=== PATIENT | male | born 1960 | race Caucasian/White ===

== ENCOUNTER 2016-07-24 03:24 | Emergency (ER) | payer BC ==
[2016-07-24] MEDS ORDERED: KETOROLAC TROMETHAMINE 60 MG/2 ML SDV IM ONE (07:05)
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
[2016-07-24 07:52] LABS: ABSOLUTE BASOPHILS # (AUTO) 0.1 10^3/uL (0.0-0.2); ABSOLUTE EOSINOPHILS # (AUTO) 0.4 10^3/uL (0.0-0.6); ABSOLUTE LYMPHOCYTES (AUTO) 2.3 10^3/uL (0.5-4.7); ABSOLUTE MONOCYTES (AUTO) 0.9 10^3/uL (0.1-1.4); ABSOLUTE NEUT (AUTO) 6.3 10^3/uL (1.7-8.2); BASOPHILS % (AUTO) 0.6 % (0-2); EOSINOPHILS % (AUTO) 3.7 % (0-6); HEMATOCRIT 51.3 % (37.9-51.0); HEMOGLOBIN 17.9 g/dL (13.5-17.0); HGB HCT DIFFERENCE 2.4; MEAN CORPUSCULAR HEMOGLOBIN 30.9 pg (27.0-33.4); MEAN CORPUSCULAR HGB CONC 34.8 g/dL (32.0-36.0); MEAN CORPUSCULAR VOLUME 89 fl (80-97); MONOCYTES % (AUTO) 8.9 % (3-13); RED BLOOD COUNT 5.79 10^6/uL (4.35-5.55); RED CELL DISTRIBUTION WIDTH 13.2 % (11.5-14.0); SEGMENTED NEUTROPHILS % (AUTO) 63.8 % (42-78); WHITE BLOOD COUNT 9.9 10^3/uL (4.0-10.5)
[2016-07-24 08:01] LABS: ALANINE AMINOTRANSFERASE 107 U/L (21-72); ALBUMIN 3.8 g/dL (3.5-5.0); ALKALINE PHOSPHATASE 45 U/L (38-126); ANION GAP 12 (5-19); ASPARTATE AMINO TRANSFERASE 67 U/L (17-59); BILIRUBIN,DIRECT 0.1 mg/dL (0.0-0.4); BILIRUBIN,TOTAL 1.9 mg/dL (0.2-1.3); BLOOD UREA NITROGEN 23 mg/dL (7-20); CALCIUM 9.3 mg/dL (8.4-10.2); CARBON DIOXIDE 29 mmol/L (22-30); CHLORIDE 101 mmol/L (98-107); CREATININE RESULT 1.06 mg/dL (0.52-1.25); GLUCOSE 125 mg/dL (75-110); POTASSIUM 3.5 mmol/L (3.6-5.0); SODIUM 141.8 mmol/L (137-145); TOTAL PROTEIN 5.7 g/dL (6.3-8.2); URIC ACID 8.4 mg/dL (3.5-8.5)
[2016-07-24 11:30] VITALS: BP 141/98
== END 2016-07-24 11:28 | disposition home or self-care (01) ==
LOC: ER 03:24
DX: M25.551 Pain in right hip (principal); M16.11 Unilateral primary osteoarthritis, right hip; F17.210 Nicotine dependence, cigarettes, uncomplicated
CPT/HCPCS: 99283; 96372; 36415; 84550; 85025; 80053; 73502; 73560; J1885

== ENCOUNTER → 2016-08-21 | Outpatient (CLI) | payer BC ==
--- NOTE | 2016-08-21 16:17 | RADIOLOGY REPORT (SQ) ---
EXAM DESCRIPTION: CHEST PA/LATERAL COMPLETED DATE/TIME: 08/21/2016 4:03 pm REASON FOR STUDY: PRE OP COMPARISON: None. EXAM PARAMETERS: NUMBER OF VIEWS: two views TECHNIQUE: Digital Frontal and Lateral radiographic views of the chest acquired. RADIATION DOSE: NA LIMITATIONS: none FINDINGS: LUNGS AND PLEURA: No opacities, masses or pneumothorax. No pleural effusion. MEDIASTINUM AND HILAR STRUCTURES: No masses or contour abnormalities. HEART AND VASCULAR STRUCTURES: Heart normal size. No evidence for failure. BONES: No acute findings. HARDWARE: None in the chest. OTHER: No other significant finding. IMPRESSION: NO SIGNIFICANT RADIOGRAPHIC FINDING IN THE CHEST. TECHNICAL DOCUMENTATION: JOB ID: [id number] [employer]- All Rights Reserved
[2016-08-21 16:54] LABS: ABSOLUTE BASOPHILS # (AUTO) 0.1 10^3/uL (0.0-0.2); ABSOLUTE EOSINOPHILS # (AUTO) 0.5 10^3/uL (0.0-0.6); ABSOLUTE LYMPHOCYTES (AUTO) 3.1 10^3/uL (0.5-4.7); ABSOLUTE MONOCYTES (AUTO) 0.9 10^3/uL (0.1-1.4); ABSOLUTE NEUT (AUTO) 5.4 10^3/uL (1.7-8.2); BASOPHILS % (AUTO) 1.3 % (0-2); EOSINOPHILS % (AUTO) 5.5 % (0-6); HEMATOCRIT 50.8 % (37.9-51.0); HEMOGLOBIN 17.6 g/dL (13.5-17.0); LYMPHOCYTES % (AUTO) 30.4 % (13-45); MEAN CORPUSCULAR HEMOGLOBIN 30.5 pg (27.0-33.4); MEAN CORPUSCULAR HGB CONC 34.7 g/dL (32.0-36.0); MEAN CORPUSCULAR VOLUME 88 fl (80-97); MONOCYTES % (AUTO) 9.3 % (3-13); RED BLOOD COUNT 5.77 10^6/uL (4.35-5.55); RED CELL DISTRIBUTION WIDTH 13.6 % (11.5-14.0); SEGMENTED NEUTROPHILS % (AUTO) 53.5 % (42-78)
[2016-08-21 17:14] LABS: APPEARANCE,URINE CLEAR; BILIRUBIN,URINE NEGATIVE (NEGATIVE); GLUCOSE, URINE 50 mg/dL (NEGATIVE); KETONES,URINE NEGATIVE (NEGATIVE); URINE SPECIFIC GRAVITY 1.021
[2016-08-21 17:15] LABS: LEUKOCYTE ESTERASE,URINE NEGATIVE (NEGATIVE); NITRITE,URINE NEGATIVE (NEGATIVE); PROTEIN,URINE NEGATIVE (NEGATIVE); UROBILINOGEN,URINE NEGATIVE mg/dL (<2.0)
[2016-08-21 17:16] LABS: WBC,URINE 0-1 /HPF
[2016-08-21 17:17] LABS: RBC,URINE 0-1 /HPF
[2016-08-21 17:19] LABS: ANION GAP 10 (5-19); BLOOD UREA NITROGEN 21 mg/dL (7-20); CALCIUM 10.1 mg/dL (8.4-10.2); CARBON DIOXIDE 27 mmol/L (22-30); CHLORIDE 104 mmol/L (98-107); CREATININE RESULT 1.12 mg/dL (0.52-1.25); GLUCOSE 97 mg/dL (75-110); POTASSIUM 3.9 mmol/L (3.6-5.0)
--- NOTE | 2016-08-22 11:05 | EKG REPORT ---
SEVERITY:- NORMAL ECG - SINUS RHYTHM : Confirmed by: Cynthia Herrera MD 22-Aug-2016 11:04:41
== END ==
LOC: OD 15:11
PROVIDERS: ATTEND Orthopaedic Surgery
DX: Z01.818 Encounter for other preprocedural examination (principal)
CPT/HCPCS: 36415; 71020; 80048; 81001; 85025; 93005; 93010

== ENCOUNTER 2016-09-17 07:22 | Inpatient (IN) | payer BC ==
[~2016-09-17 07:22] MED LIST: BUPIVACAINE INJ/PF LIPOSOME/PF 266 MG/20 ML SDV IJ PRN; CEFAZOLIN INJ 1 GM VIAL IV PRN; IBUPROFEN 800 MG/NS 250 ML IV PRN; LACTATED RINGERS 1000 ML IV PRN; LANSOPRAZOLE 15 MG TAB.RAP.DR PO PRN; OXYCODONE HCL SR 10 MG TABLET PO PRN; SCOPOLAMINE HYDROBROMIDE 1.5 MG PATCH.TD72 TOP PRN; VANCOMYCIN HCL 1,000 MG in DEXTROSE 5%-WATER 250 ML IV PRN
[2016-09-17] MEDS ORDERED: FENTANYL CITRATE INJ/PF 250 MCG/5 ML AMPULE ONE (10:19)
[2016-09-17] MEDS ORDERED: KETAMINE HCL INJ 500 MG/10 ML VIAL ONE (10:20)
[2016-09-17] MEDS ORDERED: MIDAZOLAM 2 MG/2 ML INJ ONE ×3 (10:20→11:18)
[2016-09-17] MEDS ORDERED: PROPOFOL INJ 200 MG/20 ML VIAL IV ONE ×2 (10:20→11:18)
[2016-09-17] MEDS ORDERED: THROMBIN (BOVINE) TOPICAL 20000 UNIT VIAL ONE (10:53)
[2016-09-17] MEDS ORDERED: THROMBIN (BOVINE) 5000 UNIT EPITAXIS KIT ONE ×2 (10:53→11:35)
[2016-09-17] MEDS ORDERED: BUPIVACAINE INJ/PF LIPOSOME/PF 266 MG/20 ML SDV ONE (10:53)
[2016-09-17] MEDS ORDERED: FENTANYL CITRATE INJ/PF 100 MCG/2 ML AMPUL ONE (11:17)
[2016-09-17] MEDS ORDERED: EPHEDRINE SULFATE INJ 50 MG/1 ML AMPULE ONE (11:18)
[2016-09-17] MEDS ORDERED: HYDROMORPHONE HCL INJ/PF 2 MG/ML AMPULE ONE (11:18)
[2016-09-17] MEDS ORDERED: TRANEXAMIC ACID INJ/PF 1,000 MG/10 ML SDV IV ONE ×2 (11:18→14:00)
[2016-09-17] MEDS ORDERED: ONDANSETRON HCL INJ/PF 4 MG/2 ML SDV ONE (11:18)
[2016-09-17] MEDS ORDERED: DIPHENHYDRAMINE HCL 50 MG/ML VIAL IV PRN ×2 (11:58→12:48)
[2016-09-17] MEDS ORDERED: ONDANSETRON HCL INJ/PF 4 MG/2 ML SDV IV PRN (11:58)
[2016-09-17] MEDS ORDERED: MEPERIDINE HCL/PF INJ 25 MG/1 ML DISP.SYRIN IV PRN (11:58)
[2016-09-17] MEDS ORDERED: FENTANYL CITRATE INJ/PF 100 MCG/2 ML AMPUL IV PRN ×3 (11:58)
[2016-09-17] MEDS ORDERED: ONDANSETRON 4 MG TAB.RAPDIS PO PRN (12:48)
[2016-09-17] MEDS ORDERED: MAG HYDROX/AL HYDROX/SIMETH SUSP 30 ML UDCUP PO PRN (12:48)
[2016-09-17] MEDS ORDERED: ZOLPIDEM TARTRATE 5 MG TABLET PO PRN (12:48)
[2016-09-17] MEDS ORDERED: RINGERS SOLUTION,LACTATED 1,000 ML IV PRN (12:48)
[2016-09-17] MEDS ORDERED: ACETAMINOPHEN 325 MG TABLET PO PRN (12:48)
[2016-09-17] MEDS ORDERED: MORPHINE SULFATE 10 MG/ML INJ IM PRN (12:48)
[2016-09-17] MEDS ORDERED: MORPHINE SULFATE 10 MG/ML INJ IV PRN ×2 (12:48)
--- NOTE | 2016-09-17 12:48 | Operative Report ---
Operative Report DATE OF SURGERY: 09/17/16 PREOPERATIVE DIAGNOSIS: Right hip avascular necrosis OPERATION: Right hip arthroplasty SURGEON: LISA MARTINEZ ANESTHESIA: Spinal TISSUE REMOVED OR ALTERED: Bone to pathology ESTIMATED BLOOD LOSS: 150 PROCEDURE: Implants used: Femur: Indira Accolade 2 #5 stem Acetabular shell:[54 mm hemispherical shell] Liner:[36 mm flat cross-linked polyethylene liner] Head:[36 mm chrome cobalt head plus standard neck] The patient is placed in a[left] lateral decubitus position on the operating table. The[right] lower extremity and hindquarter is prepped and draped in a sterile fashion. A curvilinear incision was made over the greater trochanter a posterior approach the hip was taken. The femoral head is dislocated and the femoral neck transected using an oscillating saw. Attention was next turned to the acetabulum. Soft tissues cleared off the acetabulum using electrocautery. The acetabulum was then prepared using a series of hemispherical reamers until a[53] millimeters reamer is seated. Subsequently a[54] millimeters Indira titanium hemispherical shell is impacted into position and secured with one screw. A standard flat [36] millimeters cross-link liner is impacted into the shell. Attention was next turned to the femur. Access is gained to the femoral canal using a box osteotome to the piriformis fossa. The femur is then prepared using a series of broaches until a number[5] broach is seated. A trial reduction was now performed using a[36] millimeters head with[standard] neck. Preoperative leg length was recreated and is excellent anterior posterior stability. A decision was made to proceed with the above construct. All trial implants were removed. The wound is irrigated with pulsed lavage. A number[5] stem is impacted into the femoral canal. A trial reduction was again performed with a 36 mm head and a[standard] neck. Findings as previously. The hip was dislocated one last time and the final chrome-cobalt head is impacted onto the trunnion. The hip was reduced. Wound is copiously irrigated with pulsed lavage. Sent closed in layers using interrupted Vicryl followed by hermelindo. A sterile dressing is applied and the patient's returned to recovery room in satisfactory patient.
--- NOTE | 2016-09-17 13:29 | RADIOLOGY REPORT (SQ) ---
EXAM DESCRIPTION: PELVIS AP COMPLETED DATE/TIME: 09/17/2016 1:19 pm REASON FOR STUDY: Post Op Long Cassette in PACU [id number] OTHER OSTEONECROSIS, UNSPECIFIED FEMUR COMPARISON: None. NUMBER OF VIEWS: One view TECHNIQUE: Digital radiographic images of the pelvis post-procedure LIMITATIONS: None. FINDINGS: BONES: No worrisome or unexpected findings post-procedure. DEVICE: Patient is status post right total hip replacement. The prosthesis appears well seated in th e acetabulum and proximal femoral medullary canal in this 1 projection. SOFT TISSUES: No worrisome findings. Expected postoperative soft tissue changes. IMPRESSION: SATISFACTORY POSTOPERATIVE PELVIS. TECHNICAL DOCUMENTATION: JOB ID: [id number] [employer]- All Rights Reserved
[2016-09-17] MEDS ORDERED: (PENDING PHARMACY ID) (Lisinopril/Hydrochlorothiazide [Lisinopril-Hctz 20-12.5 Mg Tab] 1 E PO SCH (18:00)
[2016-09-17] MEDS: SENNOSIDES/DOCUSATE 8.6-50 MG 1 EACH TABLET PO SCH (18:10)
[2016-09-17] MEDS: HYDROCHLOROTHIAZIDE 12.5 MG CAPSULE PO SCH (18:11)
[2016-09-17] MEDS: LISINOPRIL 10 MG TABLET PO SCH (18:13)
[2016-09-17] MEDS: IBUPROFEN 800 MG in NORMAL SALINE 250 ML IV SCH (18:13)
[2016-09-17] MEDS: RIVAROXABAN 10 MG TABLET PO SCH (21:38)
[2016-09-17] MEDS: OXYCODONE HCL SR 10 MG TABLET PO SCH (21:38)
[2016-09-18] MEDS ORDERED: VANCOMYCIN HCL 1,000 MG in DEXTROSE 5%-WATER 250 ML IV ONE (00:48)
[2016-09-18] MEDS: IBUPROFEN 800 MG in NORMAL SALINE 250 ML IV SCH ×3 (02:44→17:40)
[2016-09-18] MEDS: OXYCODONE HCL IR 5 MG TABLET PO PRN ×2 (05:30→15:10)
[2016-09-18] MEDS: LANSOPRAZOLE 30 MG TAB.RAP.DR PO SCH (05:31)
[2016-09-18 05:33] LABS: HEMATOCRIT 40.2 % (37.9-51.0); HEMOGLOBIN 13.9 g/dL (13.5-17.0); HGB HCT DIFFERENCE 1.5; MEAN CORPUSCULAR HEMOGLOBIN 30.7 pg (27.0-33.4); MEAN CORPUSCULAR HGB CONC 34.4 g/dL (32.0-36.0); MEAN CORPUSCULAR VOLUME 89 fl (80-97); RED BLOOD COUNT 4.51 10^6/uL (4.35-5.55); RED CELL DISTRIBUTION WIDTH 13.3 % (11.5-14.0); WHITE BLOOD COUNT 8.7 10^3/uL (4.0-10.5)
[2016-09-18 05:53] LABS: ANION GAP 8 (5-19); BLOOD UREA NITROGEN 22 mg/dL (7-20); CALCIUM 8.3 mg/dL (8.4-10.2); CARBON DIOXIDE 19 mmol/L (22-30); CHLORIDE 108 mmol/L (98-107); CREATININE RESULT 1.16 mg/dL (0.52-1.25); GLUCOSE 165 mg/dL (75-110); POTASSIUM 4.1 mmol/L (3.6-5.0); SODIUM 135.1 mmol/L (137-145)
--- NOTE | 2016-09-18 07:18 | PDOC PROGRESS REPORT ---
Subjective Progress Note for:: 09/18/16 Subjective:: Patient denies any pain Physical Exam Vital Signs: Temp Pulse Resp BP Pulse Ox 36.7 C 68 18 86/57 L 91 L 09/18/16 04:56 09/18/16 04:56 09/18/16 04:56 09/18/16 04:56 09/18/16 04:56 Intake & Output 09/17/16 09/18/16 09/19/16 06:59 06:59 06:59 Intake Total 5080 Output Total 2850 Balance 2230 Weight 94.8 kg General appearance: PRESENT: no acute distress Head exam: PRESENT: normocephalic Eye exam: PRESENT: EOMI Respiratory exam: PRESENT: unlabored Cardiovascular exam: PRESENT: RRR Pulses: PRESENT: +1 pedal pulses bilateral Vascular exam: PRESENT: normal capillary refill GI/Abdominal exam: PRESENT: soft Rectal exam: PRESENT: deferred Extremities exam: PRESENT: other - Hip dressing clean dry and intact. Leg lengths equal. Distal neurovascular examination is intact. Neurological exam: PRESENT: alert, awake, oriented to person, oriented to place , oriented to time, oriented to situation. ABSENT: motor sensory deficit Psychiatric exam: PRESENT: appropriate affect, normal mood. ABSENT: homicidal ideation, suicidal ideation Skin exam: PRESENT: dry, intact, warm. ABSENT: cyanosis, rash Results Laboratory Results: 09/18/16 05:04 09/18/16 05:04 09/17/16 09/17/16 09/18/16 07:45 07:45 05:04 WBC 8.7 RBC 4.51 Hgb 13.9 Hct 40.2 MCV 89 MCH 30.7 MCHC 34.4 RDW 13.3 Plt Count 196 Sodium Potassium 4.1 Chloride Carbon Dioxide Anion Gap BUN Creatinine Est GFR ( Amer) Est GFR (Non-Af Amer) Glucose Calcium Blood Type AB POSITIVE Antibody Screen NEGATIVE 09/18/16 05:04 WBC RBC Hgb Hct MCV MCH MCHC RDW Plt Count Sodium 135.1 L Potassium 4.1 Chloride 108 H Carbon Dioxide 19 L Anion Gap 8 BUN 22 H Creatinine 1.16 Est GFR ( Amer) > 60 Est GFR (Non-Af Amer) > 60 Glucose 165 H Calcium 8.3 L Blood Type Antibody Screen Impressions: Pelvis X-Ray 09/17/16 12:49 IMPRESSION: SATISFACTORY POSTOPERATIVE PELVIS. Status: Imported from PACS Assessment & Plan - Diagnosis (1) Avascular necrosis of bone of right hip Is this a current diagnosis for this admission?: YesPlan: 5-year-old white male postop day 1 from right hip arthroplasty for avascular necrosis. Because of her prolonged spinal the patient did not participate with physical therapy yesterday. Plan for physical therapy today and weightbearing as tolerated basis. Hematocrit remains above 40.2%. - Time Time Spent with patient: 15-24 minutes Anticipated discharge: SNF Within: within 48 hours
[2016-09-18] MEDS: OXYCODONE HCL SR 10 MG TABLET PO SCH ×2 (09:02→22:46)
[2016-09-18] MEDS: SENNOSIDES/DOCUSATE 8.6-50 MG 1 EACH TABLET PO SCH ×2 (09:03→17:34)
[2016-09-18] MEDS: PRENATAL VITAMIN W-O CA NO5/FE FUMARATE/FA CAPSULE PO SCH (09:06)
[2016-09-18] MEDS ORDERED: MAG HYDROX/AL HYDROX/SIMETH SUSP 30 ML UDCUP PO PRN (14:46)
[2016-09-18] MEDS: HYDROCHLOROTHIAZIDE 12.5 MG CAPSULE PO SCH (17:31)
[2016-09-18] MEDS: LISINOPRIL 10 MG TABLET PO SCH (17:33)
[2016-09-18] MEDS: RIVAROXABAN 10 MG TABLET PO SCH (21:17)
[2016-09-19] MEDS: IBUPROFEN 800 MG in NORMAL SALINE 250 ML IV SCH ×2 (02:11→11:22)
[2016-09-19] MEDS: MORPHINE SULFATE 10 MG/ML INJ IV PRN ×3 (04:23→22:36)
[2016-09-19] MEDS: OXYCODONE HCL IR 5 MG TABLET PO PRN ×2 (04:57→17:50)
[2016-09-19] MEDS: LANSOPRAZOLE 30 MG TAB.RAP.DR PO SCH (05:35)
[2016-09-19 05:41] LABS: MEAN CORPUSCULAR HEMOGLOBIN 30.5 pg (27.0-33.4); MEAN CORPUSCULAR HGB CONC 34.3 g/dL (32.0-36.0); MEAN CORPUSCULAR VOLUME 89 fl (80-97); RED BLOOD COUNT 3.59 10^6/uL (4.35-5.55); RED CELL DISTRIBUTION WIDTH 13.4 % (11.5-14.0); WHITE BLOOD COUNT 12.7 10^3/uL (4.0-10.5)
--- NOTE | 2016-09-19 06:54 | PDOC PROGRESS REPORT ---
Subjective Progress Note for:: 09/19/16 Subjective:: Complaining of pain this morning. He feels this is from a combination of skipping pain medicine yesterday and aggressive bed exercises this morning. Physical Exam Vital Signs: Temp Pulse Resp BP Pulse Ox 36.8 C 84 17 93/58 L 94 09/18/16 23:01 09/18/16 23:01 09/18/16 23:01 09/18/16 23:01 09/18/16 23:01 Intake & Output 09/17/16 09/18/16 09/19/16 06:59 06:59 06:59 Intake Total 5080 1830 Output Total 2850 1300 Balance 2230 530 Weight 94.8 kg 94.8 kg General appearance: PRESENT: mild distress Head exam: PRESENT: normocephalic Respiratory exam: PRESENT: unlabored Cardiovascular exam: PRESENT: RRR Pulses: PRESENT: +1 pedal pulses bilateral Vascular exam: PRESENT: normal capillary refill GI/Abdominal exam: PRESENT: soft Rectal exam: PRESENT: deferred Extremities exam: PRESENT: other - Hip picot dressing with a small amount of drainage. Leg lengths are equal. Distal neurovascular examination is intact. Neurological exam: PRESENT: alert, awake, oriented to person, oriented to place , oriented to time, oriented to situation. ABSENT: motor sensory deficit Psychiatric exam: PRESENT: appropriate affect, normal mood. ABSENT: homicidal ideation, suicidal ideation Skin exam: PRESENT: dry, intact, warm. ABSENT: cyanosis, rash Results Laboratory Results: 09/19/16 05:06 09/18/16 05:04 09/19/16 05:06 WBC 12.7 H RBC 3.59 L Hgb 11.0 L D Hct 32.0 L MCV 89 MCH 30.5 MCHC 34.3 RDW 13.4 Plt Count 195 Impressions: Pelvis X-Ray 09/17/16 12:49 IMPRESSION: SATISFACTORY POSTOPERATIVE PELVIS. Status: Imported from PACS Assessment & Plan - Diagnosis (1) Avascular necrosis of bone of right hip Is this a current diagnosis for this admission?: YesPlan: 55-year-old white male status post right hip arthroplasty for avascular necrosis of the femoral neck. Done well postop and is ambulated 20 feet yesterday. Hematocrit remains at 32%. Because the patient lives alone the plan [facility]. We anticipate that to be Thursday? - Time Time Spent with patient: 15-24 minutes Anticipated discharge: SNF Within: within 48 hours
[2016-09-19] MEDS: OXYCODONE HCL SR 10 MG TABLET PO SCH (09:54)
[2016-09-19] MEDS: SENNOSIDES/DOCUSATE 8.6-50 MG 1 EACH TABLET PO SCH ×2 (09:54→17:49)
[2016-09-19] MEDS: PRENATAL VITAMIN W-O CA NO5/FE FUMARATE/FA CAPSULE PO SCH (09:58)
[2016-09-19] MEDS: LISINOPRIL 10 MG TABLET PO SCH (17:49)
[2016-09-19] MEDS: HYDROCHLOROTHIAZIDE 12.5 MG CAPSULE PO SCH (17:50)
[2016-09-19] MEDS: ONDANSETRON HCL INJ/PF 4 MG/2 ML SDV IV PRN (20:21)
[2016-09-19] MEDS: RIVAROXABAN 10 MG TABLET PO SCH (23:29)
[2016-09-20] MEDS: ONDANSETRON HCL INJ/PF 4 MG/2 ML SDV IV PRN (02:27)
[2016-09-20] MEDS: MORPHINE SULFATE 10 MG/ML INJ IV PRN ×2 (02:38→10:13)
[2016-09-20] MEDS ORDERED: PANTOPRAZOLE SODIUM 80 MG in NORMAL SALINE 100 ML IV ONE (03:58)
[2016-09-20] MEDS ORDERED: PHARMACY COMMUNICATION ORDER MC NR (04:00)
[2016-09-20 04:36] LABS: PROTHROMBIN TIME 16.8 SEC (11.4-15.4)
[2016-09-20] MEDS ORDERED: PROMETHAZINE HCL INJ 25 MG/1 ML VIAL ONE (04:38)
[2016-09-20 04:42] LABS: HEMATOCRIT 28.6 % (37.9-51.0); HEMOGLOBIN 9.9 g/dL (13.5-17.0); HGB HCT DIFFERENCE 1.1; MEAN CORPUSCULAR HEMOGLOBIN 30.8 pg (27.0-33.4); MEAN CORPUSCULAR HGB CONC 34.8 g/dL (32.0-36.0); MEAN CORPUSCULAR VOLUME 89 fl (80-97); RED BLOOD COUNT 3.22 10^6/uL (4.35-5.55); RED CELL DISTRIBUTION WIDTH 13.1 % (11.5-14.0); WHITE BLOOD COUNT 23.2 10^3/uL (4.0-10.5)
[2016-09-20] MEDS ORDERED: MINERAL OIL ENEMA 133 ML PR ONE ×2 (04:45→10:30)
[2016-09-20] MEDS ORDERED: LORAZEPAM INJ 2 MG/1 ML VIAL IV ONE (04:45)
[2016-09-20] MEDS ORDERED: PHYTONADIONE INJ 10 MG/1 ML AMPULE SUBCUT ONE (04:51)
[2016-09-20 04:55] LABS: BAND NEUTROPHILS % (MANUAL) 2 % (3-5); BASOPHILS % (MANUAL) 0 % (0-2); EOSINOPHILS % (MANUAL) 0 % (0-6); LYMPHOCYTES % (MANUAL) 12 % (13-45); TOTAL CELLS COUNTED 100
[2016-09-20 04:57] LABS: ALANINE AMINOTRANSFERASE 71 U/L (21-72); ALBUMIN 3.2 g/dL (3.5-5.0); ALKALINE PHOSPHATASE 50 U/L (38-126); ANION GAP 14 (5-19); ASPARTATE AMINO TRANSFERASE 52 U/L (17-59); BILIRUBIN,DIRECT 0.4 mg/dL (0.0-0.4); BILIRUBIN,TOTAL 1.6 mg/dL (0.2-1.3); BLOOD UREA NITROGEN 33 mg/dL (7-20); CALCIUM 8.2 mg/dL (8.4-10.2); CARBON DIOXIDE 19 mmol/L (22-30); CHLORIDE 101 mmol/L (98-107); CREATININE RESULT 3.09 mg/dL (0.52-1.25); GLUCOSE 179 mg/dL (75-110); POTASSIUM 3.8 mmol/L (3.6-5.0); SODIUM 133.6 mmol/L (137-145); TOTAL PROTEIN 5.4 g/dL (6.3-8.2)
[2016-09-20 04:58] LABS: POLYCHROMASIA SLIGHT
[2016-09-20] MEDS ORDERED: NORMAL SALINE 100 ML with PANTOPRAZOLE SODIUM 80 MG IV PRN ×2 (05:00)
[2016-09-20] MEDS ORDERED: PANTOPRAZOLE SODIUM 40 MG VIAL IV PRN (05:07)
[2016-09-20] MEDS ORDERED: PROMETHAZINE HCL INJ 25 MG/1 ML VIAL IV ONE (05:15)
[2016-09-20 05:18] LABS: TOXIC GRANULATION 1+
[2016-09-20] MEDS ORDERED: ACETAMINOPHEN 325 MG TABLET GT PRN (05:25)
[2016-09-20] MEDS ORDERED: ACETAMINOPHEN 325 MG TABLET NG PRN (05:27)
[2016-09-20] MEDS ORDERED: MAG HYDROX/AL HYDROX/SIMETH SUSP 30 ML UDCUP NG PRN (05:28)
[2016-09-20] MEDS ORDERED: NORMAL SALINE 250 ML IV PRN (05:29)
[2016-09-20] MEDS ORDERED: ONDANSETRON 4 MG TAB.RAPDIS NG PRN (05:29)
[2016-09-20] MEDS ORDERED: OXYCODONE HCL IR 5 MG TABLET NG PRN (05:30)
[2016-09-20] MEDS ORDERED: ZOLPIDEM TARTRATE 5 MG TABLET NG PRN (05:31)
--- NOTE | 2016-09-20 05:45 | PDOC CONSULTATION ---
Consultation Consult Date: 09/20/16 Attending physician:: LISA MARTINEZ Consult reason:: nausea vomiting History of Present Illness Admission Date/PCP: 09/17/16 07:22 CATRACHO RAMOS MD Patient complains of: Abdominal distention, nausea vomiting History of Present Illness: EMANUEL HOLLAND is a 55 year old male with past medical history of hypertension admitted by surgery for right hip avascular necrosis who is postop day 2. He is noted by nursing to have nausea and vomiting of fecal versus coffee-ground emesis associated with abdominal distention. Patient admits prolonged constipation ongoing for approximately 2 weeks. He denies history of bowel obstruction. Ativan for nausea is ordered followed by NG tube to intermittent suction followed by abdominal series, surgical consultation, CBC and chemistry. Past Medical History Cardiac Medical History: Reports: Hypertension, Heart Murmur - as a child Denies: Atrial Fibrillation, Congestive Heart Failure, Coronary Artery Disease, Myocardial Infarction, Hyperlipidema, Peripheral Vascular Disease Pulmonary Medical History: Reports: None GI Medical History: Reports: None Musculoskeltal Medical History: Reports: Arthritis Denies: Fibromyalgia Past Surgical History Past Surgical History: Reports: Herniorrhaphy Denies: Appendectomy, Cholecystectomy, Coronary Artery Bypass Graft, Gastric Bypass Surgery, Pacemaker, Tonsillectomy Social History Information Source: Patient Smoking Status: Never Smoker Frequency of Alcohol Use: None Hx Recreational Drug Use: No Hx Prescription Drug Abuse: No - Advance Directive Resuscitation Status: Full Code Family History Family History: Hypertension Parental Family History Reviewed: Yes Children Family History Reviewed: Yes Sibling(s) Family History Reviewed.: Yes Medication/Allergy Home Medications: Lisinopril/Hydrochlorothiazide [Lisinopril-Hctz 20-12.5 mg Tab] 1 each PO QPM Allergies/Adverse Reactions: No Known Allergies Allergy (Unverified 09/12/16 09:56) Review of Systems Constitutional: ABSENT: chills, fever(s), headache(s), weight gain, weight loss Eyes: ABSENT: visual disturbances Ears: ABSENT: hearing changes Cardiovascular: ABSENT: chest pain, dyspnea on exertion, edema, orthropnea, palpitations Respiratory: ABSENT: cough, hemoptysis Gastrointestinal: ABSENT: abdominal pain, constipation, diarrhea, hematemesis, hematochezia, nausea, vomiting Genitourinary: ABSENT: dysuria, hematuria Musculoskeletal: ABSENT: joint swelling Integumentary: ABSENT: rash, wounds Neurological: ABSENT: abnormal gait, abnormal speech, confusion, dizziness, focal weakness, syncope Psychiatric: ABSENT: anxiety, depression, homidical ideation, suicidal ideation Endocrine: ABSENT: cold intolerance, heat intolerance, polydipsia, polyuria Hematologic/Lymphatic: ABSENT: easy bleeding, easy bruising Physical Exam Vital Signs: Temp Pulse Resp BP Pulse Ox 98.8 F 116 H 17 113/64 96 09/20/16 00:01 09/20/16 00:01 09/20/16 00:01 09/20/16 00:01 09/20/16 00:01 Intake & Output 09/18/16 09/19/16 09/20/16 11:59 11:59 11:59 Intake Total 3130 1830 640 Output Total 900 1300 690 Balance 2230 530 -50 Weight 94.8 kg 94.8 kg General appearance: PRESENT: cooperative, disheveled, severe distress Head exam: PRESENT: atraumatic, normocephalic Eye exam: PRESENT: conjunctiva pink, EOMI, PERRLA. ABSENT: scleral icterus Ear exam: PRESENT: normal external ear exam Mouth exam: PRESENT: moist, tongue midline Neck exam: ABSENT: carotid bruit, JVD, lymphadenopathy, thyromegaly Respiratory exam: PRESENT: clear to auscultation hammad, crackles, symmetrical, tachypnea. ABSENT: rales, rhonchi, wheezes Cardiovascular exam: PRESENT: RRR. ABSENT: diastolic murmur, rubs, systolic murmur Pulses: PRESENT: normal dorsalis pedis pul GI/Abdominal exam: PRESENT: diminished bowel sounds, distended, firm, rigid, tenderness. ABSENT: ascites, hernia, hyperactive bowel sounds, normal bowel sounds, organolmegaly, rebound, soft Rectal exam: PRESENT: deferred Extremities exam: PRESENT: full ROM. ABSENT: calf tenderness, clubbing, pedal edema Neurological exam: PRESENT: alert, awake, oriented to person, oriented to place , oriented to time, oriented to situation, CN II-XII grossly intact. ABSENT: motor sensory deficit Psychiatric exam: PRESENT: appropriate affect, normal mood. ABSENT: homicidal ideation, suicidal ideation Skin exam: PRESENT: dry, intact, warm. ABSENT: cyanosis, rash Results Laboratory Results: 09/20/16 04:17 09/20/16 04:17 0709/20/16 09/20/16 05:06 04:17 04:17 WBC 12.7 H 23.2 H RBC 3.59 L 3.22 L Hgb 11.0 L D 9.9 L Hct 32.0 L 28.6 L MCV 89 89 MCH 30.5 30.8 MCHC 34.3 34.8 RDW 13.4 13.1 Plt Count 195 210 Seg Neutrophils % Not Reportable Lymphocytes % Not Reportable Monocytes % Not Reportable Eosinophils % Not Reportable Basophils % Not Reportable Absolute Neutrophils Not Reportable Absolute Lymphocytes Not Reportable Absolute Monocytes Not Reportable Absolute Eosinophils Not Reportable Absolute Basophils Not Reportable Sodium 133.6 L Potassium 3.8 Chloride 101 Carbon Dioxide 19 L Anion Gap 14 BUN 33 H Creatinine 3.09 H Est GFR ( Amer) 25 L Est GFR (Non-Af Amer) 21 L Glucose 179 H Calcium 8.2 L Total Bilirubin 1.6 H AST 52 ALT 71 Alkaline Phosphatase 50 Total Protein 5.4 L Albumin 3.2 L Impressions: Pelvis X-Ray 09/17/16 12:49 IMPRESSION: SATISFACTORY POSTOPERATIVE PELVIS. Assessment & Plan - Diagnosis (1) Bowel obstruction Is this a current diagnosis for this admission?: YesPlan: History suggests fecal impaction. NG tube to intermittent suction ordered symptomatic management with Phenergan versus Ativan as needed abdominal series ordered and surgical consultation given rigidity and concern for hematemesis without GI subspecialty coverage. (2) Upper GI bleed Is this a current diagnosis for this admission?: YesPlan: Acute problem IV Protonix bolus initiated, Gastroccult labs pending packed red blood cells typed and screened, surgery consultation given lack of GI subspecialty support. Follow-up serial CBC (3) Anemia Is this a current diagnosis for this admission?: YesPlan: Multifactorial postop orthopedic surgery and hematemesis. Serial CBC ordered typed and screen for packed red blood cells. (4) Acute renal failure Is this a current diagnosis for this admission?: YesPlan: Unclear cause urinalysis pending nephrology consult. Avoiding nephrotoxic meds and doses - Time Time Spent: 50 to 70 Minutes - Inpatient Certification Medical Necessity: Need Close Monitoring Due to Risk of Patient Decompensation
[2016-09-20] MEDS ORDERED: DORIPENEM 500 MG in NORMAL SALINE 100 ML IV SCH ×2 (06:15→14:00)
--- NOTE | 2016-09-20 06:28 | CONSULTATION REPORT E ---
Consultation Report NAME: EMANUEL HOLLAND : 1960 AGE: 55Y DATE: 09/20/2016 433 A TO: LAURA GARCIA M.D. FROM: Requesting Physician REFERRING PHYSICIAN: Dr. Jurado REASON FOR REFERRAL: Upper gastrointestinal bleeding with abdominal distention. HISTORY OF PRESENT ILLNESS: Patient is a 55-year-old male who, now being at his bedside, is altered, is not able to give a history. His history in the chart is also limited. He was admitted to the hospital 2 days ago and underwent hip replacement. He had been placed on Xarelto postoperatively. I was called to see the patient because of coffee-ground emesis and abdominal distention. In reviewing the chart, he has been tachycardic the last 24 hours, having a pulse of 120. He currently, as stated, is on Xarelto. He started to have coffee-ground emesis and therefore surgery was consulted. He had been having a normal blood pressure, had not been hypotensive, but the last blood pressure being 113/64. PAST SURGICAL HISTORY: Unknown. PAST MEDICAL HISTORY: Hypertension with the rest of it unknown. MEDICATIONS: Lisinopril. ALLERGIES: Unknown. HABITS: Unknown. FAMILY HISTORY: Unknown. SOCIAL HISTORY: Unknown. REVIEW OF SYSTEMS: The patient currently is altered mental status and is not able to give any history. PHYSICAL EXAMINATION: VITAL SIGNS: Temperature is 98.8, pulse 116, blood pressure 113/64. GENERAL: Patient is sitting up in bed. He is not able to communicate and just mumbles when spoken to. HEART: Tachycardic. LUNGS: Diminished. ABDOMEN: Distended with hypoactive bowel sounds. No significant tenderness. No hernias. EXTREMITIES: Slight edema. He does move them, but unable to assess neurological status. DIAGNOSTIC DATA: White blood cell count 23, hemoglobin 10, platelets of 210, PT of 17. Sodium 134, BUN 33, creatinine of 3, increased from 1 two days ago, total bilirubin 1.6. ASSESSMENT: 1. Abdominal distention. This could be ileus versus a clonic pseudo-obstruction. I would recommend getting a CT scan of his abdomen and pelvis to evaluate this. 2. Upper gastrointestinal bleeding, which he has coffee-ground emesis. The NG tube currently is in place and is draining out minimal black coffee-ground drainage. There is no fresh blood being seen. He currently is on a proton-pump inhibitor. He has been on Xarelto since at least his surgery. I would recommend his Xarelto be stopped at the current time. He needs to be resuscitated. I would then see, once he is stable, about doing upper endoscopy in 12-24 hours. If he continues to show signs of bleeding, then consideration of plasma concentrate along with factor VII infusion prior to any endoscopy. Patient's PT is 17, which can be indicative of Xarelto use. 3. Renal insufficiency with a creatinine of 3. This most likely is due to dehydration, but also from possible blood loss. I would recommend Nephrology consultation STAT. He needs to be aggressively fluid resuscitated. 4. Altered mental status. Most likely secondary to all his medical issues that are acute, but also could be from medication. This needs to be evaluated. 5. History of hypertension. PLAN: 1. Recommend the patient be transferred to the ICU. 2. I recommend the patient had an substance abuse clinician for management of all his multiple significant medical issues. If one is not available, then consideration for transfer to a tertiary center. 3. Nephrology consultation. 4. Aggressive fluid resuscitation. 5. Hold Xarelto. 6. CT scan of his abdomen and pelvis to evaluate the abdominal distention. 7. If the patient shows ongoing bleeding, then consideration of PCC and factor VII prior to any endoscopy. If he remains stable, then consideration of endoscopy in 12-24 hours. I have discussed this with Dr. Jurado. DICTATING PHYSICIAN: LAURA GARCIA M.D. [id number] Y#: [id number] ID: [id number] JOB#: [id number] ACCT: [id number] cc:LAURA GARCIA M.D. >
--- NOTE | 2016-09-20 07:24 | RADIOLOGY REPORT (SQ) ---
EXAM DESCRIPTION: CT ABD/PELVIS NO ORAL OR IV COMPLETED DATE/TIME: 09/20/2016 6:55 am REASON FOR STUDY: abdominal distention M87.859 OTHER OSTEONECROSIS, UNSPECIFIED FEMUR COMPARISON: None. TECHNIQUE: CT scan of the abdomen and pelvis performed without intravenous or oral contrast. Images reviewed with lung, soft tissue, and bone windows. Reconstructed coronal and sagittal MPR images revi ewed. All images stored on PACS. All CT scanners at this facility use dose modulation, iterative reconstruction, and/or weight based d osing when appropriate to reduce radiation dose to as low as reasonably achievable (ALARA). [facility]: Dose Right [facility]: CareDose [facility]: Dose Right [facility]: Teradose 4D [facility]: [employer] RADIATION DOSE: Up-to-date CT equipment and radiation dose reduction techniques were employed. CTDIv ol: 15.6 mGy. DLP: 1035 mGy-cm.mGy. LIMITATIONS: None. FINDINGS: LOWER CHEST: No significant findings. No nodules or infiltrates. NON-CONTRASTED LIVER, SPLEEN, ADRENALS: Evaluation limited by lack of IV contrast. No identified sign ificant masses. Moderate hepatic steatosis. PANCREAS: No masses. No peripancreatic inflammatory changes. GALLBLADDER: No identified stones by CT criteria. No inflammatory changes to suggest cholecystitis. RIGHT KIDNEY AND URETER: No suspicious masses. Assessment limited by lack of IV contrast. No signif icant calcifications. No hydronephrosis or hydroureter. Mild perinephric fat stranding. LEFT KIDNEY AND URETER: No suspicious masses. Assessment limited by lack of IV contrast. No signifi cant calcifications. No hydronephrosis or hydroureter. Mild perinephric fat stranding. AORTA AND RETROPERITONEUM: No aneurysm. No retroperitoneal masses or adenopathy. BOWEL AND PERITONEAL CAVITY: No obvious masses or inflammatory changes. No free fluid. Nonspecific e xtensive gaseous bowel distention with colonic diameter measuring up to 8 cm in the right colon. Sma ll colonic diverticulosis. APPENDIX: Normal. PELVIS, BLADDER, AND ABDOMINAL WALL:No abnormal masses. No free fluid. Bladder normal. BONES: Right hip arthroplasty. OTHER: Adequate appearing NG tube. IMPRESSION: No acute findings. Moderate hepatic steatosis. Extensive nonspecific gaseous bowel dis tention. TECHNICAL DOCUMENTATION: JOB ID: [id number] Quality ID # [id number]: Final reports with documentation of one or more dose reduction techniques (e.g., Au tomated exposure control, adjustment of the mA and/or kV according to patient size, use of iterative reconstruction technique) 2010 [employer]- All Rights Reserved
[2016-09-20] MEDS: NORMAL SALINE 1000 ML 1,000 ML IV SCH ×2 (07:35→10:14)
[2016-09-20] MEDS ORDERED: ACETAMINOPHEN 650 MG SUPP.RECT PR ONE (07:40)
[2016-09-20 07:56] LABS: APPEARANCE,URINE SLIGHTLY-CLOUDY; BILIRUBIN,URINE NEGATIVE (NEGATIVE); GLUCOSE, URINE 50 mg/dL (NEGATIVE); KETONES,URINE NEGATIVE (NEGATIVE); LEUKOCYTE ESTERASE,URINE TRACE (NEGATIVE); NITRITE,URINE NEGATIVE (NEGATIVE); PROTEIN,URINE NEGATIVE (NEGATIVE); URINE SPECIFIC GRAVITY 1.013; UROBILINOGEN,URINE NEGATIVE mg/dL (<2.0)
--- NOTE | 2016-09-20 07:56 | RADIOLOGY REPORT (SQ) ---
EXAM DESCRIPTION: KUB/ABDOMEN (SINGLE VIEW) COMPLETED DATE/TIME: 09/20/2016 7:14 am REASON FOR STUDY: Check Placement of NG Tube M87.859 OTHER OSTEONECROSIS, UNSPECIFIED FEMUR COMPARISON: CT, 09/20/2016. NUMBER OF VIEWS: One view. TECHNIQUE: Supine radiographic image of the abdomen acquired. LIMITATIONS: None. FINDINGS: BOWEL GAS PATTERN: Extensive gaseous bowel distention. Cecal diameter is up to 11.6 cm di ameter. CALCIFICATIONS: No suspicious calcifications. SOFT TISSUES: No gross mass or suggestion of organomegaly. HARDWARE: Adequate appearing NG tube. Right total hip arthroplasty. BONES: No acute fracture. No worrisome bone lesions. OTHER: None. IMPRESSION: Extensive nonspecific gaseous bowel distention ; cecal diameter is up to 11.6 cm in diam eter. TECHNICAL DOCUMENTATION: JOB ID: [id number] [employer]- All Rights Reserved
[2016-09-20] MEDS ORDERED: ACETAMINOPHEN 325 MG TABLET PO ONE (08:15)
--- NOTE | 2016-09-20 08:37 | PDOC TRANSFER SUMMARY ---
General Admission Date/PCP: 09/17/16 07:22 CATRACHO RAMOS MD Admission Date: 09/17/16 Transfer Date: 09/20/16 Accepting Facility: [facility] Resuscitation Status: Full Code - Transfer Diagnosis (1) Bowel obstruction Is this a current diagnosis for this admission?: YesDiagnosis Summary: Patient CT abdomen and pelvis so the gaseous distention's discussed with the Dr. Hebert general surgery and the stones that is most likely is psudo obstructions and is to be a complete obstructions (2) Acute renal failure Is this a current diagnosis for this admission?: YesDiagnosis Summary: Most likely due to the sepsis and the possible obstructions currently on IV fluid (3) Anemia Is this a current diagnosis for this admission?: YesDiagnosis Summary: GI bleed any further evaluations (4) Avascular necrosis of bone of right hip Is this a current diagnosis for this admission?: YesDiagnosis Summary: Right hip arthroplasty (5) Upper GI bleed Is this a current diagnosis for this admission?: YesDiagnosis Summary: Xarelto 10 mg for DVT prophylaxis currently hold start the patient on the Protonix - Transfer Medications Home Medications: Lisinopril/Hydrochlorothiazide [Lisinopril-Hctz 20-12.5 mg Tab] 1 each PO QPM Transfer Medications: Current Medications Acetaminophen (Tylenol 325 Mg Tablet) 650 mg NG Q4HP PRN PRN Reason: Temp greater than 101F Stop: 10/17/16 12:47 Al Hydrox/Mg Hydrox/Simethicone (Maalox Plus Susp 30 Udcup) 30 ml NG Q6HP PRN PRN Reason: constipation Stop: 10/17/16 12:47 Diphenhydramine HCl (Benadryl Inj 50 Mg/1 Ml Vial) 25 mg IV Q6HP PRN PRN Reason: FOR ITCHING Stop: 10/17/16 12:47 Pantoprazole Sodium 80 mg/ (Sodium Chloride) 100 mls @ 10 mls/hr IV CONTINUOUS PRN PRN Reason: THIS MED IS NOT "PRN" Stop: 09/23/16 04:59 Sodium Chloride (Nacl 0.9% 1000 Ml Iv Soln) 1,000 mls @ 500 mls/hr IV X 2 [facility] Stop: 10/20/16 05:29 Last Admin: 09/20/16 07:35 Dose: 1,000 ml Sodium Chloride (Nacl 0.9% 250 Ml Iv Soln) 250 mls @ 30 mls/hr IV .DURING TRANSFUSION PRN PRN Reason: THIS MED IS NOT "PRN" Stop: 09/21/16 05:28 Doripenem 500 mg/ Sodium (Chloride) 100 mls @ 100 mls/hr IV Q8 [facility] Stop: 09/27/16 13:59 Morphine Sulfate (Morphine 10 Mg/Ml Inj) 2 mg IV Q1HP PRN PRN Reason: FOR PAIN SCALE OF 2-3 Stop: 09/24/16 12:47 Last Admin: 09/20/16 02:38 Dose: 2 mg Morphine Sulfate (Morphine 10 Mg/Ml Inj) 4 mg IM Q1HP PRN PRN Reason: FOR PAIN SCALE OF 4-5 Stop: 09/24/16 12:47 Last Admin: 09/18/16 17:35 Dose: 4 mg Multivi/Iron Carb/Fe Sulf/FA/Prenat (-U Multiple Vitamin Capsule) 1 cap NG DAILY [facility] Stop: 10/18/16 09:59 Ondansetron HCl (Zofran Inj/Pf 4 Mg/2 Ml Sdv) 4 mg IV Q6HP PRN PRN Reason: Nausea Stop: 10/17/16 12:47 Last Admin: 09/20/16 02:27 Dose: 4 mg Ondansetron HCl (Zofran Odt 4 Mg Tablet) 4 mg NG Q6HP PRN PRN Reason: Nausea Stop: 10/17/16 12:47 Oxycodone HCl (Oxy-Ir 5 Mg Tablet) 5 mg NG Q6HP PRN PRN Reason: FOR PAIN SCALE OF 1 Stop: 09/24/16 12:47 Pharmacy Profile Note (Medication Communication Order) 1 each [facility] .NOTICE NR Stop: 10/20/16 03:59 Senna/Docusate Sodium (Senna Plus Tablet) 1 each NG BID [facility] Stop: 10/17/16 17:59 Sodium Chloride (Saline Flush 2.5 Ml Monoject Prefil Syrin) 2.5 ml IV Q8 [facility] Stop: 10/17/16 13:59 Last Admin: 09/20/16 06:02 Dose: 2.5 ml - Allergies Allergies/Adverse Reactions: No Known Allergies Allergy (Unverified 09/12/16 09:56) Hospital Course Hospital Course: 55-year-old male with a history of the hypertensions and history of the right hip avascular necrosis was admitted by the orthopedic surgeon and underwent for the right hip arthroplasty and pretty much patient was doing good and yesterday evening patient started developing some abdominal pain and nausea vomiting with coffee emesis with some blood. At that time patient was placed on NG tube keep her n.p.o. and Dr. Hebert the general surgery was consulted. Abdomen and pelvis was done which suggest most likely a gaseous distention's but the general surgeon suggest possible obstructions and patient also underwent for the renal failure and also GI bleed and the surgery suggested transfer the patient to the tertiary center for the further evaluations for the GI bleed and obstructions and sepsis and multiorgan failure. Otherwise currently vital signs stable patient answers all questions appropriately d/w pt and agree with plan Physical Exam Vital Signs: Temp Pulse Resp BP Pulse Ox 101.5 F H 130 H 40 H 116/80 94 09/20/16 08:00 09/20/16 08:00 09/20/16 08:00 09/20/16 08:00 09/20/16 08:00 Intake & Output 09/19/16 09/20/16 09/21/16 06:59 06:59 06:59 Intake Total 1830 1890 Output Total 1300 2890 Balance 530 -1000 Weight 94.8 kg 94.8 kg 97.1 kg General appearance: PRESENT: no acute distress Eye exam: PRESENT: PERRLA Respiratory exam: PRESENT: clear to auscultation hammad GI/Abdominal exam: PRESENT: distended, hypoactive bowel sounds, tenderness Neurological exam: PRESENT: alert, awake, oriented to person, oriented to place , oriented to time, oriented to situation Results Laboratory Results: 09/20/16 04:17 09/20/16 04:17 09/20/16 09/20/16 09/20/16 04:17 04:17 07:15 WBC 23.2 H RBC 3.22 L Hgb 9.9 L Hct 28.6 L MCV 89 MCH 30.8 MCHC 34.8 RDW 13.1 Plt Count 210 Seg Neutrophils % Not Reportable Lymphocytes % Not Reportable Monocytes % Not Reportable Eosinophils % Not Reportable Basophils % Not Reportable Absolute Neutrophils Not Reportable Absolute Lymphocytes Not Reportable Absolute Monocytes Not Reportable Absolute Eosinophils Not Reportable Absolute Basophils Not Reportable Sodium 133.6 L Potassium 3.8 Chloride 101 Carbon Dioxide 19 L Anion Gap 14 BUN 33 H Creatinine 3.09 H Est GFR ( Amer) 25 L Est GFR (Non-Af Amer) 21 L Glucose 179 H Calcium 8.2 L Total Bilirubin 1.6 H AST 52 ALT 71 Alkaline Phosphatase 50 Total Protein 5.4 L Albumin 3.2 L Urine Color DARK YELLOW Urine Appearance SLIGHTLY-CLOUDY Urine pH 5.0 Ur Specific [place] 1.013 Urine Protein NEGATIVE Urine Glucose (UA) 50 H Urine Ketones NEGATIVE Urine Blood MODERATE H Urine Nitrite NEGATIVE Ur Leukocyte Esterase TRACE H Urine WBC (Auto) 20 Urine RBC (Auto) 3 Impressions: Pelvis X-Ray 09/17/16 12:49 IMPRESSION: SATISFACTORY POSTOPERATIVE PELVIS. Abdomen/Pelvis CT 09/20/16 00:00 IMPRESSION: No acute findings. Moderate hepatic steatosis. Extensive nonspecific gaseous bowel distention. KUB X-Ray 09/20/16 03:56 IMPRESSION: Extensive nonspecific gaseous bowel distention ; cecal diameter is up to 11.6 cm in diameter. Plan Time Spent: Greater than 30 Minutes - Discussed with the general surgeon and strongly suggested transfer the tertiary centers at this point continues to IV fluid continues to IV antibiotic and will transfer the patient to the tertiary centers when the bed available. Patient's brother was called and waiting for the reply
[2016-09-20] MEDS ORDERED: SENNOSIDES/DOCUSATE 8.6-50 MG 1 EACH TABLET NG SCH (10:00)
[2016-09-20] MEDS ORDERED: PRENATAL VITAMIN W-O CA NO5/FE FUMARATE/FA CAPSULE NG SCH (10:00)
[2016-09-20] MEDS ORDERED: NORMAL SALINE 1000 ML 1,000 ML IV PRN (10:32)
[2016-09-20 11:24] LABS: ANION GAP 11 (5-19); BLOOD UREA NITROGEN 37 mg/dL (7-20); CALCIUM 7.3 mg/dL (8.4-10.2); CARBON DIOXIDE 20 mmol/L (22-30); CHLORIDE 104 mmol/L (98-107); CREATININE RESULT 3.06 mg/dL (0.52-1.25); GLUCOSE 139 mg/dL (75-110); POTASSIUM 3.7 mmol/L (3.6-5.0); SODIUM 134.9 mmol/L (137-145)
--- NOTE | 2016-09-20 13:51 | PDOC CONSULTATION ---
Consultation Consult Date: 09/20/16 Consult reason:: Acute kidney injury History of Present Illness Admission Date/PCP: 09/17/16 07:22 CATRACHO RAMOS MD History of Present Illness: EMANUEL HOLLAND is a 55 year old male with past medical history of hypertension admitted by surgery for right hip avascular necrosis who is postop day 2. He was noted by nursing to have nausea and vomiting of fecal versus coffee-ground emesis associated with abdominal distention. Patient admits prolonged constipation ongoing for approximately 2 weeks. He has currently been transferred to the ICU where he is on IV fluids and blood transfusion. Patient looks quite sick. He is got a decompressing NG tube. However most remarkable finding is is markedly distended and quite tense abdomen which reminds me of intra-abdominal compartment syndrome. Surprisingly patient denies any history of severe abdominal pains. He has been given appropriate pain medications though. Patient's preoperative renal functions were normal at 1. His blood pressure preoperatively was 130 systolic. Postoperatively it dropped into the 90s-100 systolics. His creatinine today is 3+. Fortunately he is nonoliguric. His antihypertensives have obviously been discontinued including JEFF inhibitors. Past Medical History Cardiac Medical History: Reports: Heart Murmur - as a child, Hypertension- primary Denies: Atrial Fibrillation, Coronary Artery Disease, Hyperlipidemia, Myocardial Infarction, Peripheral Vascular Disease Pulmonary Medical History: Reports: None GI Medical History: Reports: None Musculoskeltal Medical History: Reports: Arthritis Denies: Fibromyalgia, Rheumatoid Arthritis Past Surgical History Past Surgical History: Reports: Herniorrhaphy Denies: Appendectomy, Cholecystectomy, Coronary Artery Bypass Graft, Gastric Bypass Surgery, Pacemaker, Tonsillectomy Social History Smoking Status: Never Smoker Frequency of Alcohol Use: None Hx Recreational Drug Use: No Hx Prescription Drug Abuse: No - Advance Directive Resuscitation Status: Full Code Family History Parental Family History Reviewed: No - Patient quite sick to answer questions and unable to stay awake because of Children Family History Reviewed: No Sibling(s) Family History Reviewed.: No Medication/Allergy Home Medications: Lisinopril/Hydrochlorothiazide [Lisinopril-Hctz 20-12.5 mg Tab] 1 each PO QPM Allergies/Adverse Reactions: No Known Allergies Allergy (Unverified 09/12/16 09:56) Review of Systems Review of Systems: Patient rather sedated and unable to answer sustained questions. Per chart review was done and discussions were done with the treating nurse . Physical Exam Vital Signs: Temp Pulse Resp BP Pulse Ox 101.8 F H 120 H 26 H 121/78 94 09/20/16 13:23 09/20/16 13:23 09/20/16 13:23 09/20/16 13:23 09/20/16 13:23 Intake & Output 09/19/16 09/20/16 09/21/16 06:59 06:59 06:59 Intake Total 1830 1890 630 Output Total 1300 2890 275 Balance 530 -1000 355 Weight 94.8 kg 94.8 kg 97.1 kg Exam: Looks quite sick. Eye exam: PRESENT: conjunctiva pink, EOMI, PERRLA Mouth exam: PRESENT: neck supple. ABSENT: moist Neck exam: ABSENT: lymphadenopathy, meningismus, tenderness, thyromegaly, tracheal deviation Respiratory exam: PRESENT: clear to auscultation hammad. ABSENT: crackles, rhonchi Cardiovascular exam: PRESENT: +S1, +S2 GI/Abdominal exam: PRESENT: diminished bowel sounds - to almost being absent, distended - Markedly and quite taut, firm. ABSENT: tenderness Extremities exam: ABSENT: pedal edema Neurological exam: PRESENT: altered. ABSENT: alert, awake Skin exam: PRESENT: dry. ABSENT: erythema, mottled, rash Results Laboratory Results: 09/20/16 04:17 09/20/16 10:25 09/20/16 09/20/16 09/20/16 04:17 04:17 07:15 WBC 23.2 H RBC 3.22 L Hgb 9.9 L Hct 28.6 L MCV 89 MCH 30.8 MCHC 34.8 RDW 13.1 Plt Count 210 Seg Neutrophils % Not Reportable Lymphocytes % Not Reportable Monocytes % Not Reportable Eosinophils % Not Reportable Basophils % Not Reportable Absolute Neutrophils Not Reportable Absolute Lymphocytes Not Reportable Absolute Monocytes Not Reportable Absolute Eosinophils Not Reportable Absolute Basophils Not Reportable Sodium 133.6 L Potassium 3.8 Chloride 101 Carbon Dioxide 19 L Anion Gap 14 BUN 33 H Creatinine 3.09 H Est GFR ( Amer) 25 L Est GFR (Non-Af Amer) 21 L Glucose 179 H Calcium 8.2 L Total Bilirubin 1.6 H AST 52 ALT 71 Alkaline Phosphatase 50 Total Protein 5.4 L Albumin 3.2 L Urine Color DARK YELLOW Urine Appearance SLIGHTLY-CLOUDY Urine pH 5.0 Ur Specific [place] 1.013 Urine Protein NEGATIVE Urine Glucose (UA) 50 H Urine Ketones NEGATIVE Urine Blood MODERATE H Urine Nitrite NEGATIVE Ur Leukocyte Esterase TRACE H Urine WBC (Auto) 20 Urine RBC (Auto) 3 Blood Type Antibody Screen 09/20/16 09/20/16 10:25 10:25 WBC RBC Hgb Hct MCV MCH MCHC RDW Plt Count Seg Neutrophils % Lymphocytes % Monocytes % Eosinophils % Basophils % Absolute Neutrophils Absolute Lymphocytes Absolute Monocytes Absolute Eosinophils Absolute Basophils Sodium 134.9 L Potassium 3.7 Chloride 104 Carbon Dioxide 20 L Anion Gap 11 BUN 37 H Creatinine 3.06 H Est GFR ( Amer) 26 L Est GFR (Non-Af Amer) 21 L Glucose 139 H Calcium 7.3 L Total Bilirubin AST ALT Alkaline Phosphatase Total Protein Albumin Urine Color Urine Appearance Urine pH Ur Specific [place] Urine Protein Urine Glucose (UA) Urine Ketones Urine Blood Urine Nitrite Ur Leukocyte Esterase Urine WBC (Auto) Urine RBC (Auto) Blood Type AB POSITIVE Antibody Screen NEGATIVE Impressions: Pelvis X-Ray 09/17/16 12:49 IMPRESSION: SATISFACTORY POSTOPERATIVE PELVIS. Abdomen/Pelvis CT 09/20/16 00:00 IMPRESSION: No acute findings. Moderate hepatic steatosis. Extensive nonspecific gaseous bowel distention. KUB X-Ray 09/20/16 03:56 IMPRESSION: Extensive nonspecific gaseous bowel distention ; cecal diameter is up to 11.6 cm in diameter. Assessment & Plan - Diagnosis (1) Abdominal distension (gaseous) Plan: Is severely distended and tight abdomen reminds me of possible abdominal compartment syndrome. Discussed with surgeon here Dr. Hebert who opined that the patient is high risk and needs to be transferred to tertiary care. I did also talk with Dr. Briones accepting surgeon at [facility] regarding my evaluation and findings. (2) Acute renal failure Is this a current diagnosis for this admission?: YesPlan: Nonoliguric. Lites are stable. Continue on fluid resuscitation and his current blood transfusion is going on.Avoid nephrotoxic drugs and dose medications to a GFR of approximately 25 cc/min.Has metabolic acidosis. Needs be monitored.Differences besides renal failure includes possible bowel ischemia. Serial lactic acid could help. However patient in the process of being transferred. (3) Avascular necrosis of bone of right hip Is this a current diagnosis for this admission?: YesPlan: As per surgery and stable from that point of view. (4) Hypertension Plan: Currently normotensive with borderline numbers. Being fluid and blood resuscitated. Patient off all antihypertensives. Patient could be proceeding into septic shock given all his clinical features and rising white count. Needs close attention and surgical evaluation and is being transferred to tertiary care most likely [facility]. (5) Upper GI bleed Is this a current diagnosis for this admission?: YesPlan: Given his coffee-ground vomiting earlier today. Small drop in hemoglobin and patient being blood transfused. Differentials includes a stress gastritis. On appropriate medications
[2016-09-20] MEDS ORDERED: DORIPENEM 250 MG in NORMAL SALINE 50 ML IV SCH (14:00)
[2016-09-20 15:52] LABS: ABSOLUTE BASOPHILS # (AUTO) 0.1 10^3/uL (0.0-0.2); ABSOLUTE EOSINOPHILS # (AUTO) 0.1 10^3/uL (0.0-0.6); ABSOLUTE LYMPHOCYTES (AUTO) 1.3 10^3/uL (0.5-4.7); ABSOLUTE MONOCYTES (AUTO) 1.5 10^3/uL (0.1-1.4); ABSOLUTE NEUT (AUTO) 12.6 10^3/uL (1.7-8.2); BASOPHILS % (AUTO) 0.5 % (0-2); EOSINOPHILS % (AUTO) 0.6 % (0-6); HEMOGLOBIN 9.6 g/dL (13.5-17.0); HGB HCT DIFFERENCE 0.8; LYMPHOCYTES % (AUTO) 8.2 % (13-45); MEAN CORPUSCULAR HEMOGLOBIN 30.5 pg (27.0-33.4); MEAN CORPUSCULAR HGB CONC 34.4 g/dL (32.0-36.0); MEAN CORPUSCULAR VOLUME 89 fl (80-97); MONOCYTES % (AUTO) 9.9 % (3-13); RED BLOOD COUNT 3.16 10^6/uL (4.35-5.55); RED CELL DISTRIBUTION WIDTH 13.5 % (11.5-14.0); SEGMENTED NEUTROPHILS % (AUTO) 80.8 % (42-78); WHITE BLOOD COUNT 15.6 10^3/uL (4.0-10.5)
[2016-09-20 16:21] VITALS: BP 100/71
--- NOTE | 2016-09-20 16:38 | PROGRESS NOTE E ---
Progress Note NAME: EMANUEL HOLLAND : 1960 AGE: 55Y DATE: 09/20/2016 ROOM: 603 SUBJECTIVE: The patient is reevaluation and apparently patient is still alert but a little bit more deteriorating condition. The patient's abdomen is more distended. Again, patient was seen by Dr. De Luna and already spoke [facility] regarding the patient's deteriorating conditions. Also update [facility] too. The patient is also receiving the blood and continues on IV fluids. The patient is still answering questions. The patient otherwise denied any chest pain but I think it is more since last 4 hours there is a little bit more worsening. Updated the surgeons regarding the patient's current condition too. The patient's brother is still not reachable at this point and patient unable to give any further number and unable to get any other things to family contact at this point. OBJECTIVE: GENERAL: The patient is currently alert, awake, but a little bit more looks sleepy. HEENT: Normocephalic. PERRLA. LUNGS: No wheezes, no rales. HEART: S1,S2 is present, tachycardic. ABDOMEN: Very distended. Bowel sounds decreased. EXTREMITIES: No edema. NEUROLOGIC: The patient is alert but looks like to me a little bit more sleepy and a little drowsy. DIAGNOSTICS: Recent labs: Sodium is 134, potassium 3.7, BUN 37, creatinine 3.06. ASSESSMENT: 1. ABDOMINAL DISTENTION. At this point most likely a possible pseudoobstruction versus colonic obstructions and possibly maybe developing abdominal compartment syndrome. The patient at this point tried to transfer to [facility] and already discussed with the surgeon, Dr. Briones over there, accepting, still waiting for a bed. Also discussed with [facility] and accepting physicians over there, too, and we discussed again and update about the things. 2. ACUTE RENAL FAILURE. Currently continues the IV fluids and follow with the outbound sales advisor. 3. AVASCULAR NECROSIS OF THE RIGHT HIP. Discussed with *------* about the patient's current condition and update about that regarding the patient's latest issues with this septicemia and at this point understand and he said that right hip wound is all stable. 4. CURRENT SEPTICEMIA DUE TO THE MOST LIKELY ABDOMINAL DISTENTIONS AND OTHER THINGS. Continue IV doripenem. 5. UPPER GI BLEED. Currently hold the Xeralto, continue IV fluids and transfusion of blood and waiting for transfer. PLAN: At this point, the patient is currently septic. Abdominal distention is possible obstructions and GI bleeds with extensive discussions with the current physicians in the hospital, Dr. Hebert, Dr. De Luna, and also discussed with DrRich *------* and also discussed with [facility] and [facility] when a bed is available, and we will try to reach again the patient's brother who is the only near family but unable to reach at this point. More than 35 minutes spent and more than 2 hours spent for all this coordinating care since this morning. I hope the patient continues to be improved. DICTATING PHYSICIAN: MAXIMINO SMITH M.D. [id number] PHY#: [id number] ID: [id number] JOB#: [id number] ACCT: [id number] cc: >
[2016-09-20] MEDS ORDERED: HYDROCHLOROTHIAZIDE 12.5 MG CAPSULE NG SCH (18:00)
[2016-09-20] MEDS ORDERED: LISINOPRIL 10 MG TABLET NG SCH (18:00)
== END 2016-09-20 17:25 | disposition short-term general hospital (02) | DRG 469 ==
LOC: INOR 07:22 → 4S 14:55 → ICU 09-20 07:06
PROVIDERS: ADMIT Orthopaedic Surgery; ATTEND Orthopaedic Surgery
PROC: 0SR902A Replacement of Right Hip Joint with Metal on Polyethylene Synthetic Substitute, Uncemented, Open Approach (ICD-10-PCS; principal; 2016-09-17 11:15)
PROC: 30233N1 Transfusion of Nonautologous Red Blood Cells into Peripheral Vein, Percutaneous Approach (ICD-10-PCS; 2016-09-20)
DX: M87.851 Other osteonecrosis, right femur (principal); A41.9 Sepsis, unspecified organism; K92.0 Hematemesis; N17.9 Acute kidney failure, unspecified; K56.60 Unspecified intestinal obstruction; I10 Essential (primary) hypertension; D64.9 Anemia, unspecified; E86.0 Dehydration; R14.0 Abdominal distension (gaseous); K59.00 Constipation, unspecified; Z60.2 Problems related to living alone
CPT/HCPCS: 01214; 36415; 36430; 72170; 74000; 74176; 80048; 80053; 81001; 82271; 84132; 85025; 85027; 85610; 86850; 86900; 86901; 86920; 88304; 88311; 94799; C1713; C9290; J0690; J1170; J1267; J1741; J2060; J2250; J2270; J2405; J2550; J2704; J3010; J3370; J3430; J3490; J7030; J7050; J7060; P9016; S0119; S0164

== ENCOUNTER 2016-11-05 22:17 | Emergency (ER) | payer BC ==
--- NOTE | 2016-11-06 01:54 | ER Document Report ---
ED Extremity Problem, Lower - General Chief Complaint: Hip Pain Stated Complaint: HIP PAIN Time Seen by Provider: 11/06/16 01:31 Mode of Arrival: Stretcher Information source: Patient TRAVEL OUTSIDE OF THE [place] IN LAST 30 DAYS: No - HPI Patient complains to provider of: Pain Location: Hip, Knee, Leg, Thigh Occurred: This afternoon Where: Home Onset/Duration: Gradual Quality of pain: Achy Severity: Moderate Context: Recent surgery Recent injury: No Associated symptoms: Painful ambulation Exacerbated by: Movement, Walking Notes: Patient is a 56-year-old male presenting to the emergency room complaining of right-sided hip and knee pain radiating down his leg that started sometime this afternoon after physical therapy, he reports a history of a right-sided hip replacement that was performed at this facility on 09/17/2016, he states he has been doing well since the surgery, he has been having regular physical therapy but he did some different exercises today and feels as though he may have overdone it, he denies any fever, no pain or drainage at surgical site, no urinary symptoms, he denies any injury or trauma since the surgery - Related Data Allergies/Adverse Reactions: No Known Allergies Allergy (Unverified 09/12/16 09:56) Past Medical History - General Information source: Patient - Social History Smoking Status: Unknown if Ever Smoked Family History: Hypertension Patient has suicidal ideation: No Patient has homicidal ideation: No - Past Medical History Cardiac Medical History: Reports: Hx Hypertension, Hx Heart Murmur - as a child Denies: Hx Atrial Fibrillation, Hx Congestive Heart Failure, Hx Coronary Artery Disease, Hx Heart Attack, Hx Hypercholesterolemia, Hx Peripheral Vascular Disease Renal/ Medical History: Denies: Hx Peritoneal Dialysis Musculoskeltal Medical History: Reports Hx Arthritis, Denies Hx Fibromyalgia, Denies Hx Muscular Dystrophy Traumatic Medical History: Denies: Hx Fractures Past Surgical History: Reports: Hx Abdominal Surgery - colostomy, Hx Herniorrhaphy, Hx Orthopedic Surgery - Rt hip. Denies: Hx Appendectomy, Hx Bowel Surgery, Hx Cholecystectomy, Hx Coronary Artery Bypass Graft, Hx Gastric Bypass Surgery, Hx Pacemaker, Hx Tonsillectomy Review of Systems - Review of Systems Constitutional: No symptoms reported EENT: No symptoms reported Cardiovascular: No symptoms reported Respiratory: No symptoms reported Gastrointestinal: No symptoms reported Genitourinary: No symptoms reported Male Genitourinary: No symptoms reported Musculoskeletal: See HPI Skin: No symptoms reported Hematologic/Lymphatic: No symptoms reported Neurological/Psychological: No symptoms reported -: Yes All other systems reviewed and negative Physical Exam - Vital signs Vitals: Temp Pulse Resp BP Pulse Ox 98.0 F 102 H 21 H 119/89 H 96 11/05/16 23:44 11/05/16 23:44 11/05/16 23:44 11/05/16 23:44 11/05/16 23:44 Interpretation: Normal - General General appearance: Appears well, Alert - HEENT Head: Normocephalic, Atraumatic Eyes: Normal Pupils: PERRL - Respiratory Respiratory status: No respiratory distress Chest status: Nontender Breath sounds: Normal Chest palpation: Normal - Cardiovascular Rhythm: Regular Heart sounds: Normal auscultation Murmur: No - Abdominal Inspection: Normal Distension: No distension Bowel sounds: Normal Tenderness: Nontender Organomegaly: No organomegaly - Back Back: Normal, Nontender - Extremities General upper extremity: Normal inspection, Nontender, Normal color, Normal ROM , Normal temperature General lower extremity: Normal inspection, Nontender, Normal color, Normal ROM , Normal temperature, Normal weight bearing. No: Kwabena's sign - Neurological Neuro grossly intact: Yes Cognition: Normal Orientation: AAOx4 Shayne Coma Scale Eye Opening: Spontaneous [place] Coma Scale Verbal: Oriented [place] Coma Scale Motor: Obeys Commands [place] Coma Scale Total: 15 Speech: Normal Motor strength normal: LUE, RUE, LLE, RLE Sensory: Normal - Psychological Associated symptoms: Normal affect, Normal mood - Skin Skin Temperature: Warm Skin Moisture: Dry Skin Color: Normal Course - Re-evaluation Re-evalutation: 11/06/16 03:57 Patient was able to ambulate with assistance of a wheelchair, his imaging findings were unremarkable and discussed with him at bedside which are unremarkable, he was provided with pain medication, reports that he has an appointment with his primary care provider at 2:00 in the afternoon, he was advised to keep this appointment, follow-up with orthopedics in the next 1-2 days as well, or return if symptoms worsen, patient acknowledges understanding and agreement with this plan - Vital Signs Vital signs: Temp Pulse Resp BP Pulse Ox 98.0 F 62 18 117/76 98 11/05/16 23:44 11/06/16 03:52 11/06/16 03:52 11/06/16 03:52 11/06/16 03:52 - Diagnostic Test Radiology reviewed: Image reviewed, Reports reviewed Discharge - Discharge Clinical Impression: Leg pain, right Condition: Stable Disposition: HOME, SELF-CARE Instructions: Leg Pain Nonspecific ([facility]) Additional Instructions: Follow up with your primary care provider in one to 2 days. Return to the emergency room immediately if symptoms worsen or any additional concerns. Referrals: ONUR KWON MD [Primary Care Provider] - Follow up as needed
[2016-11-06] MEDS ORDERED: OXYCODONE-ACETAMINOPHEN 5-325 MG TABLET PO ONE (02:35)
--- NOTE | 2016-11-06 03:04 | RADIOLOGY REPORT (SQ) ---
EXAM DESCRIPTION: HIP RIGHT AP/LATERAL COMPLETED DATE/TIME: 11/06/2016 2:34 am REASON FOR STUDY: pain COMPARISON: 07/24/2016. CT, 09/20/2016. CR, abdomen, 09/20/2016. NUMBER OF VIEWS: Two views. TECHNIQUE: AP pelvis and additional frog-leg view of the right hip. LIMITATIONS: None. FINDINGS: MINERALIZATION: Normal. RIGHT HIP: Right total hip arthroplasty with 0.8 cm bone -component interface lucency surrounding med ial and superior aspects of the acetabular cup. Femoral component appears unremarkable. No evidence of metal fracture. LEFT HIP: No fracture or dislocation. No worrisome bone lesions. PUBIS AND ISCHIUM: No fracture. PELVIS: No fracture. SACRUM: No fracture or dislocation. No worrisome bone lesions. LOWER LUMBAR SPINE: Mild lumbosacral spondylosis. Mild lower lumbar disc desiccation. SOFT TISSUES: No findings. OTHER: No other significant finding. IMPRESSION: Possible loosening of the acetabular component of a right total hip arthroplasty. TECHNICAL DOCUMENTATION: JOB ID: [id number] [employer]- All Rights Reserved
--- NOTE | 2016-11-06 03:07 | RADIOLOGY REPORT (SQ) ---
EXAM DESCRIPTION: KNEE RIGHT 4 VIEWS COMPLETED DATE/TIME: 11/06/2016 2:34 am REASON FOR STUDY: pain COMPARISON: None. NUMBER OF VIEWS: Four views. TECHNIQUE: AP, lateral, and both oblique radiographic images acquired of the right knee. LIMITATIONS: None. FINDINGS: MINERALIZATION: Normal. BONES: No acute fracture or dislocation. No worrisome bone lesions. Minimal osteoarthritis includes chronic minimal hypertrophy of the tibial spines. JOINT: No effusion. SOFT TISSUES: No soft tissue swelling. No radio-opaque foreign body. OTHER: Minimal atherosclerosis. IMPRESSION: No acute findings. Minimal osteoarthritis. TECHNICAL DOCUMENTATION: JOB ID: [id number] [employer]- All Rights Reserved
[2016-11-06] MEDS ORDERED: HYDROCODONE/ACETAMINOPHEN 5-325 MG 6 TAB/DSPK PO PRN (03:36)
[2016-11-06 03:54] VITALS: BP 117/76
== END 2016-11-06 03:52 | disposition home or self-care (01) ==
LOC: ER 22:17
DX: M79.604 Pain in right leg (principal); M25.551 Pain in right hip; Z96.641 Presence of right artificial hip joint; I10 Essential (primary) hypertension
CPT/HCPCS: 99283

== ENCOUNTER 2016-11-07 15:23 | Inpatient (IN) | payer BC ==
--- NOTE | 2016-11-07 16:24 | ER Document Report ---
ED Medical Screen (RME) - General TRAVEL OUTSIDE OF THE [place] IN LAST 30 DAYS: No - General Chief Complaint: Hip Pain Stated Complaint: R HIP PAIN Time Seen by Provider: 11/07/16 16:09 Notes: Patient is a 56 year old male presenting to the emergency department for right hip pain. Patient states his pain has been increasing over the past 1-2 weeks. Patient states he is unable to get out of his chair and has increasing pain with walking and moving. Patient is also having pain into his knee cap. Patient states he was seen in the ED recently for a fall. Patient had hip surgery on 09/17 and a colostomy bag placed on 09/19/16. Patient was found by physical therapy on the ground scrubbing the floor from his colostomy bag spilling. Patient's PT called Dr. Luke and was instructed to come to the ED. (TONO IGLESIAS) - Related Data Allergies/Adverse Reactions: No Known Allergies Allergy (Verified 11/07/16 15:28) Past Medical History - Social History Chew tobacco use (# tins/day): No Frequency of alcohol use: None Drug Abuse: None - Past Medical History Cardiac Medical History: Reports: Hx Hypertension, Hx Heart Murmur - as a child Denies: Hx Atrial Fibrillation, Hx Congestive Heart Failure, Hx Coronary Artery Disease, Hx Heart Attack, Hx Hypercholesterolemia, Hx Peripheral Vascular Disease Renal/ Medical History: Denies: Hx Peritoneal Dialysis Musculoskeltal Medical History: Reports Hx Arthritis, Denies Hx Fibromyalgia, Denies Hx Muscular Dystrophy Traumatic Medical History: Denies: Hx Fractures Past Surgical History: Reports: Hx Abdominal Surgery - colostomy, Hx Herniorrhaphy, Hx Orthopedic Surgery - Rt hip. Denies: Hx Appendectomy, Hx Bowel Surgery, Hx Cholecystectomy, Hx Coronary Artery Bypass Graft, Hx Gastric Bypass Surgery, Hx Pacemaker, Hx Tonsillectomy Physical Exam - Vital signs Vitals: Temp Pulse Resp BP Pulse Ox 97.9 F 103 H 16 105/69 96 11/07/16 15:28 11/07/16 15:28 11/07/16 15:28 11/07/16 15:28 11/07/16 15:28 - Notes Notes: GENERAL: Alert, interacts well. No acute distress. LUNGS: Clear to auscultation bilaterally, no wheezes, rales, or rhonchi. No respiratory distress. HEART: Regular rate and rhythm. No murmurs, gallops, or rubs. EXTREMITIES: Moves all 4 extremities spontaneously. Well healed incision to the posterior right buttocks. No tenderness over the incision. Tenderness to palpation over the greater trochanter on the right. No tenderness over the right knee along the joint line. No ligamentous laxity. Negative posterior and anterior drawer test. Trace non-pitting edema. NEUROLOGICAL: Alert and oriented x3. Normal speech. (TONO IGLESIAS) Course - Consults Dr. Luke Time consulted: 16:22 - Re-evaluation Re-evalutation: 11/07/16 16:[address] Luke regarding the x-ray from yesterday that reveals small loosening of the acetabular component of the prosthesis, also discussed with him my concerns for possible DVT. He is currently at the dentist's office and will come in to evaluate the patient as soon as possible however he agrees with getting a DVT ultrasound at present and checking blood work. Patient will be sent to the main ER for further evaluation. (ANGIE FUNES) - Vital Signs Vital signs: Temp Pulse Resp BP Pulse Ox 97.9 F 103 H 16 105/69 96 11/07/16 15:28 11/07/16 15:28 11/07/16 15:28 11/07/16 15:28 11/07/16 15:28 - Consults Dr. Luke Reason for consultation: 11/07/16 16:[address] Luke who will come see the patient. (TONO IGLESIAS) Scribe Documentation - Scribe Written by Ann:: Ann Nunes 11/07/16 16:34 acting as scribe for :: Yue
--- NOTE | 2016-11-07 17:07 | ER Document Report ---
ED General - General Chief Complaint: Hip Pain Stated Complaint: R HIP PAIN Time Seen by Provider: 11/07/16 16:09 Mode of Arrival: Wheelchair Information source: Patient Notes: 56-year-old male history of colostomy recently with right leg weakness pain presents with complaints of worsening pain and inability to take care of himself. Patient is unable to ambulate. Patient well known to orthopedic Dr. Luke TRAVEL OUTSIDE OF THE [place] IN LAST 30 DAYS: No - HPI Onset: Last week Onset/Duration: Persistent Quality of pain: Achy Severity: Moderate Pain Level: 2 Associated symptoms: Weakness Exacerbated by: Movement, Walking Relieved by: Denies Similar symptoms previously: Yes Recently seen / treated by doctor: Yes - Related Data Allergies/Adverse Reactions: No Known Allergies Allergy (Verified 11/07/16 15:28) Past Medical History - Social History Smoking Status: Never Smoker Cigarette use (# per day): No Chew tobacco use (# tins/day): No Smoking Education Provided: No Frequency of alcohol use: None Drug Abuse: None Family History: Hypertension Patient has suicidal ideation: No Patient has homicidal ideation: No - Past Medical History Cardiac Medical History: Reports: Hx Hypertension, Hx Heart Murmur - as a child Denies: Hx Atrial Fibrillation, Hx Congestive Heart Failure, Hx Coronary Artery Disease, Hx Heart Attack, Hx Hypercholesterolemia, Hx Peripheral Vascular Disease Renal/ Medical History: Denies: Hx Peritoneal Dialysis Musculoskeltal Medical History: Reports Hx Arthritis, Denies Hx Fibromyalgia, Denies Hx Muscular Dystrophy Traumatic Medical History: Denies: Hx Fractures Past Surgical History: Reports: Hx Abdominal Surgery - colostomy, Hx Herniorrhaphy, Hx Orthopedic Surgery - Rt hip. Denies: Hx Appendectomy, Hx Bowel Surgery, Hx Cholecystectomy, Hx Coronary Artery Bypass Graft, Hx Gastric Bypass Surgery, Hx Pacemaker, Hx Tonsillectomy Review of Systems - Review of Systems Notes: REVIEW OF SYSTEMS: CONSTITUTIONAL : Denies fever, chills, or sweats. Denies recent illness. EENT: Denies eye, ear, throat, or mouth pain or symptoms. Denies nasal or sinus congestion or discharge. Denies throat, tongue, or mouth swelling or difficulty swallowing. CARDIOVASCULAR: Denies chest pain. Denies palpitations or racing or irregular heart beat. Denies ankle edema. RESPIRATORY: Denies cough, cold, or chest congestion. Denies shortness of breath, difficulty breathing, or wheezing. GASTROINTESTINAL: Denies abdominal pain or distention. Denies nausea, vomiting , or diarrhea. Denies blood in vomitus, stools, or per rectum. Denies black, tarry stools. Denies constipation. GENITOURINARY: Denies difficulty urinating, painful urination, burning, frequency, blood in urine, or discharge. MUSCULOSKELETAL: Admits to right-sided pain SKIN: Denies rash, lesions or sores. HEMATOLOGIC : Denies easy bruising or bleeding. LYMPHATIC: Denies swollen, enlarged glands. NEUROLOGICAL: Admits to weakness of the lower extremities PSYCHIATRIC: Denies anxiety or stress. Denies depression, suicidal ideation, or homicidal ideation. ALL OTHER SYSTEMS REVIEWED AND NEGATIVE. Dictation was performed using [employer] voice recognition software PHYSICAL EXAMINATION: GENERAL: Well-appearing, well-nourished and in no acute distress. HEAD: Atraumatic, normocephalic. EYES: Pupils equal round and reactive to light, extraocular movements intact, sclera anicteric, conjunctiva are normal. ENT: Nares patent, oropharynx clear without exudates. Moist mucous membranes. NECK: Normal range of motion, supple without lymphadenopathy LUNGS: Breath sounds clear to auscultation bilaterally and equal. No wheezes rales or rhonchi. HEART: Regular rate and rhythm without murmurs ABDOMEN: Soft, nontender, nondistended abdomen. No guarding, no rebound. No masses appreciated. Musculoskeletal: Tenderness on palpation of the right calf and thigh, is decreased range of motion secondary to pain NEUROLOGICAL: Mild weakness is noted of the right upper extremity patient is unable to ambulate PSYCH: Normal mood, normal affect. SKIN: Warm, Dry, normal turgor, no rashes or lesions noted. Physical Exam - Vital signs Vitals: Temp Pulse Resp BP Pulse Ox 97.9 F 103 H 16 105/69 96 11/07/16 15:28 11/07/16 15:28 11/07/16 15:28 11/07/16 15:28 11/07/16 15:28 Course - Re-evaluation Re-evalutation: 11/07/16 17:38 Patient was immediately evaluated by Dr. Luke, he will admit to his service due to the weakness in inability to ambulate - Vital Signs Vital signs: Temp Pulse Resp BP Pulse Ox 97.9 F 103 H 16 105/69 96 11/07/16 15:28 11/07/16 15:28 11/07/16 15:28 11/07/16 15:28 11/07/16 15:28 - Laboratory Result Diagrams: 11/07/16 17:29 11/07/16 17:29 - Diagnostic Test Radiology reviewed: Image reviewed, Reports reviewed Discharge - Discharge Clinical Impression: Weakness, Leg pain, right Condition: Stable Disposition: ADMITTED INPATIENT Admitting Provider: [facility] Unit Admitted: Medical Floor
[2016-11-07 17:47] LABS: ABSOLUTE BASOPHILS # (AUTO) 0.1 10^3/uL (0.0-0.2); ABSOLUTE EOSINOPHILS # (AUTO) 0.3 10^3/uL (0.0-0.6); ABSOLUTE LYMPHOCYTES (AUTO) 2.6 10^3/uL (0.5-4.7); ABSOLUTE MONOCYTES (AUTO) 0.7 10^3/uL (0.1-1.4); ABSOLUTE NEUT (AUTO) 3.7 10^3/uL (1.7-8.2); BASOPHILS % (AUTO) 1.3 % (0-2); EOSINOPHILS % (AUTO) 4.2 % (0-6); HEMATOCRIT 40.5 % (37.9-51.0); HEMOGLOBIN 14.1 g/dL (13.5-17.0); HGB HCT DIFFERENCE 1.8; LYMPHOCYTES % (AUTO) 35.1 % (13-45); MEAN CORPUSCULAR HEMOGLOBIN 31.2 pg (27.0-33.4); MEAN CORPUSCULAR HGB CONC 34.9 g/dL (32.0-36.0); MEAN CORPUSCULAR VOLUME 89 fl (80-97); MONOCYTES % (AUTO) 9.3 % (3-13); RED BLOOD COUNT 4.52 10^6/uL (4.35-5.55); RED CELL DISTRIBUTION WIDTH 14.3 % (11.5-14.0); SEGMENTED NEUTROPHILS % (AUTO) 50.1 % (42-78); WHITE BLOOD COUNT 7.3 10^3/uL (4.0-10.5)
[2016-11-07 18:05] LABS: ALANINE AMINOTRANSFERASE 152 U/L (21-72); ALBUMIN 4.8 g/dL (3.5-5.0); ALKALINE PHOSPHATASE 112 U/L (38-126); ANION GAP 14 (5-19); ASPARTATE AMINO TRANSFERASE 64 U/L (17-59); BILIRUBIN,DIRECT 0.4 mg/dL (0.0-0.4); BILIRUBIN,TOTAL 0.8 mg/dL (0.2-1.3); BLOOD UREA NITROGEN 35 mg/dL (7-20); CALCIUM 10.2 mg/dL (8.4-10.2); CARBON DIOXIDE 22 mmol/L (22-30); CHLORIDE 101 mmol/L (98-107); CREATININE RESULT 1.44 mg/dL (0.52-1.25); GLUCOSE 117 mg/dL (75-110); POTASSIUM 4.6 mmol/L (3.6-5.0); SODIUM 137.1 mmol/L (137-145)
[2016-11-07 18:32] LABS: PROTHROMBIN TIME 12.7 SEC (11.4-15.4)
[2016-11-08] MEDS: HYDROCODONE/ACETAMINOPHEN 5-325 MG TABLET PO PRN ×4 (03:01→21:33)
--- NOTE | 2016-11-08 07:49 | PDOC H&P ---
History of Present Illness Admission Date/PCP: 11/07/16 19:02 CATRACHO RAMOS MD Patient complains of: Right lower extremity pain History of Present Illness: EMANUEL HOLLAND is a 56 year old male who is approximately 6 weeks status post right hip arthroplasty for avascular necrosis. Initially the patient did well was 90 been taking pain medicine. On Thursday he was on all 4 scrubbing the floor and had immediate onset right lower extremity pain. He was evaluated in the emergency room and subsequently sent home with a mild analgesic prescription. There was no clear identification of pain etiology. I received a call from the visiting nurse service yesterday that the patient was continued to be in extreme pain. He is reevaluated in the emergency room by myself. Is admitted primarily for social reasons since he is unable to get out of a chair by himself and lives alone. He is complaining of right lower extremity pain that radiates down the lower extremity to the dorsum of the foot. He states he cannot stand to have anything touch the top of his foot when the pain is exacerbated. Past Medical History Cardiac Medical History: Reports: Hypertension, Heart Murmur - as a child Denies: Atrial Fibrillation, Congestive Heart Failure, Coronary Artery Disease, Myocardial Infarction, Hyperlipidema, Peripheral Vascular Disease Musculoskeltal Medical History: Reports: Arthritis Denies: Fibromyalgia Past Surgical History Past Surgical History: Reports: Herniorrhaphy, Orthopedic Surgery - Rt hip arthroplasty 09/2016 Denies: Appendectomy, Cholecystectomy, Coronary Artery Bypass Graft, Gastric Bypass Surgery, Pacemaker, Tonsillectomy Social History Smoking Status: Never Smoker Frequency of Alcohol Use: None Hx Recreational Drug Use: No Drugs: None Hx Prescription Drug Abuse: No Family History Family History: Hypertension Parental Family History Reviewed: No Children Family History Reviewed: No Sibling(s) Family History Reviewed.: No Medication/Allergy Home Medications: Lisinopril/Hydrochlorothiazide [Lisinopril-Hctz 20-12.5 mg Tab] 1 tab PO DAILY 11/07/16 Allergies/Adverse Reactions: No Known Allergies Allergy (Verified 11/07/16 15:28) Review of Systems All systems: as per [facility] Physical Exam Vital Signs: Temp Pulse Resp BP Pulse Ox 36.6 C 89 18 105/69 99 11/07/16 22:04 11/07/16 22:04 11/07/16 22:04 11/07/16 15:28 11/07/16 22:04 Intake & Output 11/07/16 11/08/16 11/09/16 06:59 06:59 06:59 Intake Total 360 Output Total 555 Balance -195 Weight 86.2 kg Physical Exam: The patient is a moderately built middle-aged white male with some developmental delay lying in hospital bed at this point complaining of pain General appearance: PRESENT: mild distress Head exam: PRESENT: normocephalic Respiratory exam: PRESENT: unlabored Cardiovascular exam: PRESENT: RRR Pulses: PRESENT: +1 pedal pulses bilateral Vascular exam: PRESENT: normal capillary refill GI/Abdominal exam: PRESENT: soft, other - Colostomy Rectal exam: PRESENT: deferred Extremities exam: PRESENT: other - Right hip incision is well-healed. Leg lengths are equal. Gentle passive range of motion of the right hip is without pain or this includes flexion extension, abduction abduction, as well as rotation. There is brisk capillary refill to the great toe. Sensory examination today is symmetric and intact to the dorsum of the foot. Motor function to the great toe flexion extension is 5/5 to manual testing. Neurological exam: PRESENT: alert, awake, oriented to person, oriented to place , oriented to time, oriented to situation Psychiatric exam: PRESENT: appropriate affect Skin exam: PRESENT: dry, intact, warm. ABSENT: cyanosis, rash Results Status: Imported from PACS - X-rays have been interpreted by radiology as a potential shift in the acetabular component. I think that this is a result of difference in penetration and the study and I think if you look at the relationship of the acetabular component anatomic landmarks including the teardrop is been no change in position. Assessment & Plan - Diagnosis (1) Right L5 radiculopathy Is this a current diagnosis for this admission?: Yes Plan: Physical examination suggest that the pain is not emanating from his right hip. I think the patient has acute onset right L5 radiculopathy. We are awaiting physical therapy evaluation and lumbosacral spine films. On Thursday we can begin the process of evaluating for placement since the social situation is a significant part of the problem. - Time Time Spent: 50 to 70 Minutes Within: Other
--- NOTE | 2016-11-08 13:23 | RADIOLOGY REPORT (SQ) ---
EXAM DESCRIPTION: L SPINE 2 VIEWS COMPLETED DATE/TIME: 11/08/2016 1:14 pm REASON FOR STUDY: R leg and lower back pain COMPARISON: None. NUMBER OF VIEWS: Two views. TECHNIQUE: AP and lateral radiographic images acquired of the lumbar spine. LIMITATIONS: None. FINDINGS: Mild convex left scoliosis. Mild disc space narrowing with primarily lateral osteophytes at multiple levels, especially L3-4 and L4-5. SI joints are normal. IMPRESSION: Spondylosis. No acute findings. TECHNICAL DOCUMENTATION: JOB ID: [id number] [employer]- All Rights Reserved
--- NOTE | 2016-11-08 13:31 | XCELERA REPORT ---
[address] [address] Lower Extremity Venous Evaluation Name: EMANUEL HOLLAND Age: 56 yrs Gender: Male : 1960 Patient Status: Preadmit Patient Location: ER Study Date: 11/07/2016 04:41 PM Procedure: Color flow and duplex imaging of the veins of the right lower extremity as well as the left Common Femoral vein. Reason For Study: right leg pain, s/p surgery, r/o DVT Ordering Physician: ANGIE FUNES Performed By: Jarrod Salazar Right Sided Venous Evaluation Normal vessel filling wall to wall, compression and augmentation as well as Colour flow down to the infrageniculate veins. Left Sided Venous Evaluation The left common femoral vein is fully compressible. Spontaneous and phasic flow is present in the left common femoral vein. Interpretation Summary No duplex evidence of DVT or obstruction in the right lower extremity nor in the left Common Femoral vein. : ANGIE FUNES > Raúl Briones
[2016-11-09] MEDS: HYDROCODONE/ACETAMINOPHEN 5-325 MG TABLET PO PRN ×3 (04:55→23:17)
--- NOTE | 2016-11-09 17:44 | PDOC PROGRESS REPORT ---
Subjective Progress Note for:: 11/09/16 Subjective:: Patient states having difficulty participating with physical therapy. Still complaining of feeling pain down his right lower extremity. Physical Exam Vital Signs: Temp Pulse Resp BP Pulse Ox 36.9 C 93 18 137/85 H 100 11/09/16 16:08 11/09/16 16:08 11/09/16 16:08 11/09/16 16:08 11/09/16 16:08 Intake & Output 11/08/16 11/09/16 11/10/16 06:59 06:59 06:59 Intake Total 360 1685 980 Output Total 555 1400 700 Balance -195 285 280 Weight 86.2 kg Adult Front & Back Image: 1 - Limb lengths are grossly equal. He is neurovascular intact distally. Results Impressions: Lumbar Spine X-Ray 11/08/16 00:00 IMPRESSION: Spondylosis. No acute findings. Assessment & Plan - Plan Summary Plan Summary: 56-year-old gentleman status post right total knee arthroplasty. Concern for the colopathy on the right lower extremity. Patient lives at home by himself and has difficulty taking care of himself. He is having trouble with physical therapy as well. Patient likely will need to be set up for rehab at a [place] [facility] facility.
[2016-11-10] MEDS: HYDROCODONE/ACETAMINOPHEN 5-325 MG TABLET PO PRN ×3 (05:23→20:42)
--- NOTE | 2016-11-10 07:03 | PDOC PROGRESS REPORT ---
Subjective Progress Note for:: 11/10/16 Subjective:: 56-year-old white male approximately 6 weeks status post total right hip arthroplasty sitting comfortably in her reclining chair. Patient reports he is still having significant amount of pain radiating from his hip to his knee. He is attempting to make progress with PT and walked a few steps but is still having trouble. Options for discharge were discussed with patient including discharge to home or possible placement in nursing assisted facility. Physical Exam Vital Signs: Temp Pulse Resp BP Pulse Ox 36.8 C 85 18 132/79 H 100 11/09/16 23:39 11/09/16 23:39 11/09/16 23:39 11/09/16 23:39 11/09/16 23:39 Intake & Output 11/08/16 11/09/16 11/10/16 06:59 06:59 06:59 Intake Total 360 1685 2485 Output Total 555 1400 1375 Balance -757 202 3903 Weight 86.2 kg 84.4 kg General appearance: PRESENT: no acute distress, well-developed, well-nourished Head exam: PRESENT: atraumatic, normocephalic Additional comments: Right lower extremity exhibits full range of passive motion. Sensory and motor functions are intact and has brisk capillary refill. Additional comments: Patient has made progress with physical therapy and has been ambulatory. He still exhibits a great amount of difficulty and pain with walking. Neurological exam: PRESENT: alert, awake, oriented to person, oriented to place , oriented to time, oriented to situation, CN II-XII grossly intact. ABSENT: motor sensory deficit Psychiatric exam: PRESENT: appropriate affect, normal mood. ABSENT: homicidal ideation, suicidal ideation Skin exam: PRESENT: dry, intact, warm. ABSENT: cyanosis, rash Results Impressions: Lumbar Spine X-Ray 11/08/16 00:00 IMPRESSION: Spondylosis. No acute findings. Assessment & Plan - Diagnosis (1) Leg pain, right Is this a current diagnosis for this admission?: Yes Plan: 56-year-old white male 6 weeks status post total right hip arthroplasty. Patient is still having pain that radiates from his right hip to his knee and is having difficulty making progress with physical therapy. He has been ambulatory but does not know how functional he will be at home by himself. Social work was consulted to discuss options for discharge including being discharged home or a nursing rehab facility in order for patient to gain strength before returning home. Patient will likely be discharged within a week.
[2016-11-10] MEDS ORDERED: CYCLOBENZAPRINE HCL 10 MG TABLET PO PRN (15:57)
[2016-11-10] MEDS: CYCLOBENZAPRINE HCL 10 MG TABLET PO PRN (17:52)
[2016-11-11] MEDS: CYCLOBENZAPRINE HCL 10 MG TABLET PO PRN ×4 (01:02→23:05)
[2016-11-11] MEDS: HYDROCODONE/ACETAMINOPHEN 5-325 MG TABLET PO PRN ×4 (04:46→23:05)
--- NOTE | 2016-11-11 07:03 | PDOC PROGRESS REPORT ---
Subjective Progress Note for:: 11/11/16 Subjective:: Patient continues to complain of right lower extremity pain which is unabated Physical Exam Vital Signs: Temp Pulse Resp BP Pulse Ox 36.6 C 87 18 140/90 H 99 11/10/16 23:47 11/10/16 23:47 11/10/16 23:47 11/10/16 23:47 11/10/16 23:47 Intake & Output 11/10/16 11/11/16 11/12/16 06:59 06:59 06:59 Intake Total 2485 1675 Output Total 1375 1150 Balance 1110 525 Weight 84.4 kg 85.8 kg General appearance: PRESENT: mild distress Head exam: PRESENT: normocephalic Respiratory exam: PRESENT: unlabored Cardiovascular exam: PRESENT: RRR Pulses: PRESENT: +1 pedal pulses bilateral Vascular exam: PRESENT: normal capillary refill Extremities exam: PRESENT: other - Exam continues to be notable for complaints of a sensory neuropathy over the dorsum of the right foot. Motor strength testing manually does not reveal an underlying motor deficit. Straight leg raise is questionably positive on the right lower extremity. There is brisk capillary refill. Neurological exam: PRESENT: alert, awake, oriented to person, oriented to place , oriented to time, oriented to situation, motor sensory deficit Psychiatric exam: PRESENT: appropriate affect Skin exam: PRESENT: dry, intact, warm. ABSENT: cyanosis, rash Results Impressions: Lumbar Spine X-Ray 11/08/16 00:00 IMPRESSION: Spondylosis. No acute findings. Status: Imported from PACS Assessment & Plan - Diagnosis (1) Right L5 radiculopathy Is this a current diagnosis for this admission?: Yes Plan: 56-year-old white male Formerly [facility] [employer], 1928–1983 employee who is approximately 6 weeks status post hip arthroplasty now with right lower extremity pain that I believe to be a radiculopathy. Lumbar spine films demonstrate degenerative changes. Pain has not abated with supportive care. Plan for an MRI scan today of the lumbosacral spine and conversion to inpatient status. Patient is unsafe to go home with his current functional level since he lives alone - Time Time Spent with patient: 15-24 minutes Anticipated discharge: Other Within: Other
--- NOTE | 2016-11-11 12:52 | RADIOLOGY REPORT (SQ) ---
EXAM DESCRIPTION: MRI LUMBAR SPINE WITHOUT COMPLETED DATE/TIME: 11/11/2016 11:53 am REASON FOR STUDY: RADICULOPATHY COMPARISON: None. TECHNIQUE: Sagittal and Axial imaging includes T1, T2, STIR and gradient echo sequences. Coronal T2/ HASTE imaging. LIMITATIONS: None. FINDINGS: VISUALIZED UPPER ABDOMEN: Limited evaluation. No acute or suspicious findings suggested. SEGMENTATION: No transitional anatomy. The lowest well-developed disc space is labeled L5-S1. ALIGNMENT: Anatomic. VERTEBRAE: Intact. BONE MARROW: Normal. No marrow replacement or reactive changes. DISC SIGNAL: There is a small area of increased T2 and STIR signal in dorsal aspect of L3-4 disc. Th ere is mildly decreased signal intensity from L3-S1. POSTERIOR ELEMENTS: Generally intact. No pars defect evident. HARDWARE: None in the spine. CORD AND CONUS: Normal in size and signal intensity. Conus at T12. SOFT TISSUES: No aortic aneurysm seen. No bulky retroperitoneal adenopathy or mass. No paraspinal mas s or fluid. L1-L2: No significant spinal stenosis or exit foraminal stenosis. L2-L3: No significant spinal stenosis or exit foraminal stenosis. L3-L4: There is a concentric disc bulge resulting mild central canal and foraminal stenoses. There d oes not appear to be entrapment of the exiting nerve roots. L4-L5: There is a posterior disc bulge/protrusion that is slightly more prominent on the right side. This does not affect the exiting nerve roots, but does appear to displace dorsally the right batsheva ing nerve root. There is disc material that extends inferior to the disc space. L5-S1: No significant spinal stenosis or exit foraminal stenosis. LOWER THORACIC: Incompletely imaged. No stenosis seen. SACRUM: Visualized upper sacrum intact. OTHER: No other significant findings. IMPRESSION: 1. There is a small annular tear at L3-4. 2. There is a concentric disc bulge with mild central canal and foraminal stenosis at L3-4 without n erve entrapment. 3. There is a posterior disc protrusion that is slightly eccentric to the right side at L4-5. There is some disc material that extends inferior to the disc space. This displaces the traversing nerve root dorsally on the right. TECHNICAL DOCUMENTATION: JOB ID: [id number]- All Rights Reserved
[2016-11-12] MEDS: HYDROCODONE/ACETAMINOPHEN 5-325 MG TABLET PO PRN (06:33)
[2016-11-12] MEDS: CYCLOBENZAPRINE HCL 10 MG TABLET PO PRN (06:33)
--- NOTE | 2016-11-12 07:45 | PDOC DISCHARGE SUMMARY ---
General - Admit/Disc Date/PCP Admission Date/Primary Care Provider: 11/11/16 08:15 CATRACHO RAMOS MD Discharge Date: 11/12/16 - Discharge Diagnosis (1) Right L5 radiculopathy Is this a current diagnosis for this admission?: Yes - Additional Information Discharge Diet: As Tolerated, Regular Discharge Activity: Activity As Tolerated, Balance Activity w/Rest Home Medications: Lisinopril/Hydrochlorothiazide [Lisinopril-Hctz 20-12.5 mg Tab] 1 tab PO DAILY 11/07/16 Hydrocodone/Acetaminophen [Buchanan 5-325 mg Tablet] 1 tab PO Q6HP PRN tablet History of Present Illness History of Present Illness: The patient is a 56-year-old white male approximately 6 weeks status post right hip arthroplasty progressive necrosis who presented to emergency room twice within 2 days with acute onset right lower extremity pain associated with mopping the floor on his hands and knees. Hospital Course Hospital Course: Patient was admitted to orthopedic service for evaluation and management of right lower extremity pain. Physical examination suggest that this to be a spinal/neurogenic problem. X-rays confirmed lower lumbar degenerative changes. MRI scan demonstrated a lateral L4-5 disc. Patient was treated with anti- inflammatory medication, physical therapy, and analgesia. There is been slow limited improvement in his functional ability. Physical Exam Vital Signs: Temp Pulse Resp BP Pulse Ox 36.9 C 89 16 124/84 99 11/11/16 20:11 11/11/16 20:11 11/11/16 20:11 11/11/16 20:11 11/11/16 20:11 Intake & Output 11/11/16 11/12/16 11/13/16 06:59 06:59 06:59 Intake Total 1270 Output Total 1365 Balance -95 General appearance: PRESENT: mild distress Head exam: PRESENT: normocephalic Respiratory exam: PRESENT: unlabored Cardiovascular exam: PRESENT: RRR Pulses: PRESENT: +1 pedal pulses bilateral Vascular exam: PRESENT: normal capillary refill GI/Abdominal exam: PRESENT: soft Rectal exam: PRESENT: deferred Extremities exam: PRESENT: other - Right hip wound is well-healed. Leg lengths are equal. Neurological exam: PRESENT: alert, awake, oriented to person, oriented to place , oriented to time, oriented to situation. ABSENT: motor sensory deficit Psychiatric exam: PRESENT: appropriate affect, normal mood. ABSENT: homicidal ideation, suicidal ideation Skin exam: PRESENT: dry, intact, warm. ABSENT: cyanosis, rash Results Impressions: Lumbar Spine X-Ray 11/08/16 00:00 IMPRESSION: Spondylosis. No acute findings. Lumbar Spine MRI 11/11/16 00:00 IMPRESSION: 1. There is a small annular tear at L3-4. 2. There is a concentric disc bulge with mild central canal and foraminal stenosis at L3-4 without nerve entrapment. 3. There is a posterior disc protrusion that is slightly eccentric to the right side at L4-5. There is some disc material that extends inferior to the disc space. This displaces the traversing nerve root dorsally on the right. Status: Imported from PACS Plan Discharge Plan: Patient to be discharged home with home health nursing, home health physical therapy. Follow-up to be with Dr. Luke and [facility] for surgery either or Thursday for an anticipated epidural steroid injection by pain management.
[2016-11-12 09:41] VITALS: BP 113/80
== END 2016-11-12 12:53 | disposition home health service (06) | DRG 552 ==
LOC: ER 15:23 → INTOOBSV 17:44 → EH 17:44 → UNDOADMOB 17:44 → 5 18:52 → EH 18:52 → 5 19:02 → OBSVTOIN 11-11 08:15
PROVIDERS: ADMIT Orthopaedic Surgery; ATTEND Orthopaedic Surgery
DX: M54.16 Radiculopathy, lumbar region (principal); I10 Essential (primary) hypertension; M19.90 Unspecified osteoarthritis, unspecified site; Z79.899 Other long term (current) drug therapy; Z96.641 Presence of right artificial hip joint; Z93.3 Colostomy status
CPT/HCPCS: 36415; 72100; 72148; 80053; 85025; 85610; 93971; 99285; G0378

== ENCOUNTER → 2017-07-04 | Outpatient (CLI) | payer BC ==
[2017-07-04 04:14] LABS: ABSOLUTE BASOPHILS # (AUTO) 0.1 10^3/uL (0.0-0.2); ABSOLUTE EOSINOPHILS # (AUTO) 0.5 10^3/uL (0.0-0.6); ABSOLUTE LYMPHOCYTES (AUTO) 2.6 10^3/uL (0.5-4.7); ABSOLUTE MONOCYTES (AUTO) 0.8 10^3/uL (0.1-1.4); ABSOLUTE NEUT (AUTO) 4.7 10^3/uL (1.7-8.2); BASOPHILS % (AUTO) 0.7 % (0-2); EOSINOPHILS % (AUTO) 5.7 % (0-6); HEMATOCRIT 48.7 % (37.9-51.0); HEMOGLOBIN 17.2 g/dL (13.5-17.0); LYMPHOCYTES % (AUTO) 30.3 % (13-45); MEAN CORPUSCULAR HEMOGLOBIN 31.5 pg (27.0-33.4); MEAN CORPUSCULAR HGB CONC 35.3 g/dL (32.0-36.0); MEAN CORPUSCULAR VOLUME 89 fl (80-97); MONOCYTES % (AUTO) 9.3 % (3-13); PLATELET COUNT 207 10^3/uL (150-450); RED BLOOD COUNT 5.45 10^6/uL (4.35-5.55); RED CELL DISTRIBUTION WIDTH 13.8 % (11.5-14.0); TOTAL CELLS COUNTED % (AUTO) 100 %; WHITE BLOOD COUNT 8.7 10^3/uL (4.0-10.5)
[2017-07-04 04:35] LABS: ALANINE AMINOTRANSFERASE 99 U/L (21-72); ALBUMIN 4.3 g/dL (3.5-5.0); ALKALINE PHOSPHATASE 56 U/L (38-126); ANION GAP 14 (5-19); ASPARTATE AMINO TRANSFERASE 40 U/L (17-59); BILIRUBIN,TOTAL 0.9 mg/dL (0.2-1.3); BLOOD UREA NITROGEN 16 mg/dL (7-20); CALCIUM 9.9 mg/dL (8.4-10.2); CARBON DIOXIDE 22 mmol/L (22-30); CHLORIDE 111 mmol/L (98-107); CHOLESTEROL 203.78 mg/dL (0-200); GLUCOSE 130 mg/dL (75-110); POTASSIUM 4.3 mmol/L (3.6-5.0); SODIUM 146.8 mmol/L (137-145); TOTAL PROTEIN 6.7 g/dL (6.3-8.2); TRIGLYCERIDES 206 mg/dL (<150); URIC ACID 7.2 mg/dL (3.5-8.5)
[2017-07-04 04:42] LABS: VLDL CHOLESTEROL 41.2 mg/dL (10-31)
[2017-07-04 04:45] LABS: DIRECT LDL 110 mg/dL (<100)
[2017-07-04 04:52] LABS: BILIRUBIN,DIRECT 0.4 mg/dL (0.0-0.4)
[2017-07-04 05:12] LABS: APPEARANCE,URINE CLEAR; BILIRUBIN,URINE NEGATIVE (NEGATIVE); COLOR,URINE YELLOW; GLUCOSE, URINE NEGATIVE (NEGATIVE); KETONES,URINE NEGATIVE (NEGATIVE); LEUKOCYTE ESTERASE,URINE NEGATIVE (NEGATIVE); NITRITE,URINE NEGATIVE (NEGATIVE); PROTEIN,URINE NEGATIVE (NEGATIVE); URINE SPECIFIC GRAVITY 1.024; UROBILINOGEN,URINE NEGATIVE mg/dL (<2.0)
[2017-07-05 07:39] LABS: CREATININE URINE 206.6 mg/dL (Not Estab.); MICROALBUMIN URINE 13.4 ug/mL (Not Estab.)
== END ==
LOC: LAB 03:59
PROVIDERS: ATTEND Internal Medicine
DX: I10 Essential (primary) hypertension (principal)
CPT/HCPCS: 36415; 80053; 80061; 81001; 82043; 82570; 84436; 84443; 84550; 85025

== ENCOUNTER → 2017-10-03 | Outpatient (CLI) | payer BC ==
[2017-10-03 04:18] LABS: ABSOLUTE BASOPHILS # (AUTO) 0.1 10^3/uL (0.0-0.2); ABSOLUTE EOSINOPHILS # (AUTO) 0.5 10^3/uL (0.0-0.6); ABSOLUTE LYMPHOCYTES (AUTO) 2.2 10^3/uL (0.5-4.7); ABSOLUTE MONOCYTES (AUTO) 0.8 10^3/uL (0.1-1.4); ABSOLUTE NEUT (AUTO) 4.2 10^3/uL (1.7-8.2); EOSINOPHILS % (AUTO) 6.6 % (0-6); HEMATOCRIT 48.7 % (37.9-51.0); HEMOGLOBIN 17.2 g/dL (13.5-17.0); MEAN CORPUSCULAR HEMOGLOBIN 31.8 pg (27.0-33.4); MEAN CORPUSCULAR HGB CONC 35.3 g/dL (32.0-36.0); MEAN CORPUSCULAR VOLUME 90 fl (80-97); MONOCYTES % (AUTO) 10.7 % (3-13); PLATELET COUNT 199 10^3/uL (150-450); RED BLOOD COUNT 5.41 10^6/uL (4.35-5.55); RED CELL DISTRIBUTION WIDTH 13.3 % (11.5-14.0); SEGMENTED NEUTROPHILS % (AUTO) 53.7 % (42-78); TOTAL CELLS COUNTED % (AUTO) 100 %; WHITE BLOOD COUNT 7.8 10^3/uL (4.0-10.5)
[2017-10-03 04:20] LABS: APPEARANCE,URINE CLEAR; BILIRUBIN,URINE NEGATIVE (NEGATIVE); COLOR,URINE YELLOW; GLUCOSE, URINE NEGATIVE (NEGATIVE); KETONES,URINE NEGATIVE (NEGATIVE); LEUKOCYTE ESTERASE,URINE NEGATIVE (NEGATIVE); NITRITE,URINE NEGATIVE (NEGATIVE); PROTEIN,URINE NEGATIVE (NEGATIVE); UROBILINOGEN,URINE NEGATIVE mg/dL (<2.0)
[2017-10-03 04:38] LABS: ALANINE AMINOTRANSFERASE 81 U/L (21-72); ALBUMIN 4.4 g/dL (3.5-5.0); ALKALINE PHOSPHATASE 68 U/L (38-126); ANION GAP 13 (5-19); ASPARTATE AMINO TRANSFERASE 47 U/L (17-59); BILIRUBIN,DIRECT 0.2 mg/dL (0.0-0.4); BILIRUBIN,TOTAL 0.9 mg/dL (0.2-1.3); BLOOD UREA NITROGEN 20 mg/dL (7-20); CALCIUM 9.7 mg/dL (8.4-10.2); CARBON DIOXIDE 21 mmol/L (22-30); CHLORIDE 109 mmol/L (98-107); CHOLESTEROL 201.25 mg/dL (0-200); GLUCOSE 143 mg/dL (75-110); POTASSIUM 4.2 mmol/L (3.6-5.0); SODIUM 143.1 mmol/L (137-145); TRIGLYCERIDES 348 mg/dL (<150); URIC ACID 7.4 mg/dL (3.5-8.5)
[2017-10-03 04:49] LABS: DIRECT LDL 112 mg/dL (<100)
[2017-10-03 04:54] LABS: FREE T4 (FREE THYROXINE) 0.72 ng/dL (0.78-2.19); VLDL CHOLESTEROL 69.6 mg/dL (10-31)
[2017-10-03 05:08] LABS: THYROID STIMULATING HORMONE 1.79 uIU/mL (0.47-4.68)
[2017-10-04 07:38] LABS: CREATININE URINE 174.7 mg/dL (Not Estab.); MICROALBUMIN URINE 17.2 ug/mL (Not Estab.)
== END ==
LOC: LAB 04:08
PROVIDERS: ATTEND Internal Medicine
DX: I10 Essential (primary) hypertension (principal); R73.9 Hyperglycemia, unspecified
CPT/HCPCS: 80053; 80061; 81001; 82043; 82570; 83036; 84439; 84443; 84550; 85025

== ENCOUNTER → 2018-02-19 | Outpatient (CLI) | payer BC ==
[2018-02-19 11:50] LABS: ABSOLUTE BASOPHILS # (AUTO) 0.1 10^3/uL (0.0-0.2); ABSOLUTE EOSINOPHILS # (AUTO) 0.3 10^3/uL (0.0-0.6); ABSOLUTE LYMPHOCYTES (AUTO) 1.9 10^3/uL (0.5-4.7); ABSOLUTE MONOCYTES (AUTO) 0.7 10^3/uL (0.1-1.4); ABSOLUTE NEUT (AUTO) 6.6 10^3/uL (1.7-8.2); BASOPHILS % (AUTO) 1.2 % (0-2); EOSINOPHILS % (AUTO) 2.9 % (0-6); HEMATOCRIT 47.5 % (37.9-51.0); HEMOGLOBIN 16.7 g/dL (13.5-17.0); LYMPHOCYTES % (AUTO) 19.6 % (13-45); MEAN CORPUSCULAR HEMOGLOBIN 31.8 pg (27.0-33.4); MEAN CORPUSCULAR HGB CONC 35.3 g/dL (32.0-36.0); MEAN CORPUSCULAR VOLUME 90 fl (80-97); MONOCYTES % (AUTO) 7.2 % (3-13); PLATELET COUNT 218 10^3/uL (150-450); RED BLOOD COUNT 5.26 10^6/uL (4.35-5.55); RED CELL DISTRIBUTION WIDTH 13.2 % (11.5-14.0); SEGMENTED NEUTROPHILS % (AUTO) 69.1 % (42-78); TOTAL CELLS COUNTED % (AUTO) 100 %; WHITE BLOOD COUNT 9.5 10^3/uL (4.0-10.5)
[2018-02-19 11:57] LABS: APPEARANCE,URINE SLIGHTLY-CLOUDY; BILIRUBIN,URINE NEGATIVE (NEGATIVE); COLOR,URINE YELLOW; GLUCOSE, URINE NEGATIVE (NEGATIVE); KETONES,URINE NEGATIVE (NEGATIVE); LEUKOCYTE ESTERASE,URINE NEGATIVE (NEGATIVE); NITRITE,URINE NEGATIVE (NEGATIVE); PROTEIN,URINE NEGATIVE (NEGATIVE); URIC ACID CRYSTALS,URINE FEW /HPF; URINE SPECIFIC GRAVITY 1.023; UROBILINOGEN,URINE NEGATIVE mg/dL (<2.0)
[2018-02-19 12:10] LABS: ALANINE AMINOTRANSFERASE 70 U/L (21-72); ALBUMIN 4.1 g/dL (3.5-5.0); ALKALINE PHOSPHATASE 55 U/L (38-126); ANION GAP 12 (5-19); ASPARTATE AMINO TRANSFERASE 40 U/L (17-59); BILIRUBIN,DIRECT 0.1 mg/dL (0.0-0.4); BILIRUBIN,TOTAL 1.4 mg/dL (0.2-1.3); BLOOD UREA NITROGEN 20 mg/dL (7-20); CARBON DIOXIDE 24 mmol/L (22-30); CHLORIDE 107 mmol/L (98-107); GLUCOSE 123 mg/dL (75-110); POTASSIUM 4.3 mmol/L (3.6-5.0); SODIUM 142.8 mmol/L (137-145); TOTAL PROTEIN 6.1 g/dL (6.3-8.2)
[2018-02-19 12:15] LABS: C-REACTIVE PROTEIN < 5.0 mg/L (<10.0)
[2018-02-19 12:33] LABS: ERYTHROCYTE SEDIMENTATION RATE 3 mm/hr (0-20)
[2018-02-20 15:37] LABS: ANTINUCLEAR ANTIBODIES Positive (Negative); RNP AB <0.2 AI (0.0-0.9); SJOGREN'S ANTI-SS-B AB <0.2 AI (0.0-0.9); SJOGREN'S SS-A ANTIBODY <0.2 AI (0.0-0.9); SMITH AB ANA <0.2 AI (0.0-0.9)
[2018-02-20 17:31] LABS: DNA DOUBLE STRAND ANTIBODY ANA 69 IU/mL (0-9)
== END ==
LOC: OD 10:34
PROVIDERS: ATTEND Internal Medicine
DX: M13.0 Polyarthritis, unspecified (principal); R73.01 Impaired fasting glucose; I10 Essential (primary) hypertension
CPT/HCPCS: 36415; 80053; 81001; 83036; 85025; 85652; 86038; 86140; 86200

== ENCOUNTER → 2018-04-02 | Outpatient (CLI) | payer BC ==
[2018-04-02 08:29] LABS: ABSOLUTE BASOPHILS # (AUTO) 0.1 10^3/uL (0.0-0.2); ABSOLUTE EOSINOPHILS # (AUTO) 0.5 10^3/uL (0.0-0.6); ABSOLUTE LYMPHOCYTES (AUTO) 1.9 10^3/uL (0.5-4.7); ABSOLUTE MONOCYTES (AUTO) 0.7 10^3/uL (0.1-1.4); ABSOLUTE NEUT (AUTO) 3.7 10^3/uL (1.7-8.2); BASOPHILS % (AUTO) 1.3 % (0-2); EOSINOPHILS % (AUTO) 6.9 % (0-6); HEMATOCRIT 49.4 % (37.9-51.0); HEMOGLOBIN 17.1 g/dL (13.5-17.0); LYMPHOCYTES % (AUTO) 27.8 % (13-45); MEAN CORPUSCULAR HEMOGLOBIN 31.8 pg (27.0-33.4); MEAN CORPUSCULAR HGB CONC 34.7 g/dL (32.0-36.0); MEAN CORPUSCULAR VOLUME 92 fl (80-97); MONOCYTES % (AUTO) 9.7 % (3-13); PLATELET COUNT 230 10^3/uL (150-450); RED BLOOD COUNT 5.38 10^6/uL (4.35-5.55); RED CELL DISTRIBUTION WIDTH 13.3 % (11.5-14.0); SEGMENTED NEUTROPHILS % (AUTO) 54.3 % (42-78); TOTAL CELLS COUNTED % (AUTO) 100 %; WHITE BLOOD COUNT 6.9 10^3/uL (4.0-10.5)
[2018-04-02 08:30] LABS: APPEARANCE,URINE CLEAR; BILIRUBIN,URINE NEGATIVE (NEGATIVE); COLOR,URINE YELLOW; GLUCOSE, URINE NEGATIVE (NEGATIVE); KETONES,URINE NEGATIVE (NEGATIVE); LEUKOCYTE ESTERASE,URINE NEGATIVE (NEGATIVE); NITRITE,URINE NEGATIVE (NEGATIVE); PROTEIN,URINE NEGATIVE (NEGATIVE); URINE SPECIFIC GRAVITY 1.021; UROBILINOGEN,URINE NEGATIVE mg/dL (<2.0)
[2018-04-02 09:02] LABS: ALANINE AMINOTRANSFERASE 83 U/L (21-72); ALBUMIN 4.9 g/dL (3.5-5.0); ALKALINE PHOSPHATASE 63 U/L (38-126); ANION GAP 8 (5-19); ASPARTATE AMINO TRANSFERASE 47 U/L (17-59); BILIRUBIN,DIRECT 0.2 mg/dL (0.0-0.4); BILIRUBIN,TOTAL 1.2 mg/dL (0.2-1.3); BLOOD UREA NITROGEN 22 mg/dL (7-20); C-REACTIVE PROTEIN 5.5 mg/L (<10.0); CALCIUM 9.6 mg/dL (8.4-10.2); CARBON DIOXIDE 28 mmol/L (22-30); CHLORIDE 106 mmol/L (98-107); GLUCOSE 123 mg/dL (75-110); POTASSIUM 4.4 mmol/L (3.6-5.0); SODIUM 142.2 mmol/L (137-145); TOTAL PROTEIN 6.9 g/dL (6.3-8.2)
[2018-04-02 09:06] LABS: ERYTHROCYTE SEDIMENTATION RATE 4 mm/hr (0-20)
[2018-04-02 09:12] LABS: FREE T4 (FREE THYROXINE) 0.87 ng/dL (0.78-2.19)
[2018-04-02 09:26] LABS: THYROID STIMULATING HORMONE 0.77 uIU/mL (0.47-4.68)
[2018-04-03 12:37] LABS: ANTICHROMATIN AB <0.2 AI (0.0-0.9); CENTROMERE B AB <0.2 AI (0.0-0.9); JO-1 ANTIBODY (ANACOMP) <0.2 AI (0.0-0.9); SJOGREN'S ANTI-SS-B AB <0.2 AI (0.0-0.9); SJOGREN'S SS-A ANTIBODY <0.2 AI (0.0-0.9)
[2018-04-03 18:06] LABS: DNA DOUBLE STRAND ANTIBODY ANA 109 IU/mL (0-9)
== END ==
LOC: OD 07:04
PROVIDERS: ATTEND Internal Medicine
DX: M13.0 Polyarthritis, unspecified (principal); I10 Essential (primary) hypertension; R73.9 Hyperglycemia, unspecified; M32.9 Systemic lupus erythematosus, unspecified
CPT/HCPCS: 36415; 80053; 81001; 83036; 84439; 84443; 84550; 85025; 85652; 86140; 86225; 86235

== ENCOUNTER → 2018-06-30 | Outpatient (CLI) | payer BC ==
[2018-06-30 08:09] LABS: APPEARANCE,URINE CLEAR; BILIRUBIN,URINE NEGATIVE (NEGATIVE); COLOR,URINE YELLOW; GLUCOSE, URINE NEGATIVE (NEGATIVE); KETONES,URINE NEGATIVE (NEGATIVE); LEUKOCYTE ESTERASE,URINE NEGATIVE (NEGATIVE); NITRITE,URINE NEGATIVE (NEGATIVE); PROTEIN,URINE NEGATIVE (NEGATIVE); URINE SPECIFIC GRAVITY 1.016; UROBILINOGEN,URINE NEGATIVE mg/dL (<2.0)
[2018-06-30 08:18] LABS: ABSOLUTE BASOPHILS # (AUTO) 0.1 10^3/uL (0.0-0.2); ABSOLUTE EOSINOPHILS # (AUTO) 0.4 10^3/uL (0.0-0.6); ABSOLUTE LYMPHOCYTES (AUTO) 1.8 10^3/uL (0.5-4.7); ABSOLUTE MONOCYTES (AUTO) 0.7 10^3/uL (0.1-1.4); ABSOLUTE NEUT (AUTO) 5.1 10^3/uL (1.7-8.2); EOSINOPHILS % (AUTO) 5.4 % (0-6); HEMATOCRIT 49.4 % (37.9-51.0); HEMOGLOBIN 17.7 g/dL (13.5-17.0); LYMPHOCYTES % (AUTO) 22.2 % (13-45); MEAN CORPUSCULAR HEMOGLOBIN 31.6 pg (27.0-33.4); MEAN CORPUSCULAR HGB CONC 35.8 g/dL (32.0-36.0); MEAN CORPUSCULAR VOLUME 88 fl (80-97); MONOCYTES % (AUTO) 8.5 % (3-13); PLATELET COUNT 201 10^3/uL (150-450); RED CELL DISTRIBUTION WIDTH 12.9 % (11.5-14.0); SEGMENTED NEUTROPHILS % (AUTO) 62.9 % (42-78); TOTAL CELLS COUNTED % (AUTO) 100 %; WHITE BLOOD COUNT 8.1 10^3/uL (4.0-10.5)
[2018-06-30 09:09] LABS: FREE T4 (FREE THYROXINE) 0.84 ng/dL (0.78-2.19)
[2018-06-30 09:24] LABS: THYROID STIMULATING HORMONE 1.5 uIU/mL (0.47-4.68)
[2018-06-30 09:31] LABS: ALANINE AMINOTRANSFERASE 68 U/L (21-72); ALBUMIN 4.3 g/dL (3.5-5.0); ALKALINE PHOSPHATASE 60 U/L (38-126); ANION GAP 9 (5-19); ASPARTATE AMINO TRANSFERASE 33 U/L (17-59); BILIRUBIN,DIRECT 0.3 mg/dL (0.0-0.4); BILIRUBIN,TOTAL 0.9 mg/dL (0.2-1.3); BLOOD UREA NITROGEN 20 mg/dL (7-20); CALCIUM 10.1 mg/dL (8.4-10.2); CARBON DIOXIDE 23 mmol/L (22-30); CHLORIDE 107 mmol/L (98-107); CHOLESTEROL 192.51 mg/dL (0-200); GLUCOSE 125 mg/dL (75-110); POTASSIUM 4.4 mmol/L (3.6-5.0); SODIUM 138.5 mmol/L (137-145); TOTAL PROTEIN 6.7 g/dL (6.3-8.2); TRIGLYCERIDES 246 mg/dL (<150); URIC ACID 6.3 mg/dL (3.5-8.5)
[2018-06-30 09:44] LABS: DIRECT LDL 116 mg/dL (<100)
[2018-06-30 09:46] LABS: VLDL CHOLESTEROL 49.2 mg/dL (10-31)
[2018-07-01 13:37] LABS: CREATININE URINE 83.5 mg/dL (Not Estab.); MICROALBUMIN URINE 19.5 ug/mL (Not Estab.)
[2018-07-01 13:37] LABS: ANTICHROMATIN AB <0.2 AI (0.0-0.9); CENTROMERE B AB <0.2 AI (0.0-0.9); JO-1 ANTIBODY (ANACOMP) <0.2 AI (0.0-0.9); SJOGREN'S ANTI-SS-B AB <0.2 AI (0.0-0.9); SJOGREN'S SS-A ANTIBODY <0.2 AI (0.0-0.9)
[2018-07-01 15:02] LABS: DNA DOUBLE STRAND ANTIBODY ANA 110 IU/mL (0-9)
== END ==
LOC: OD 07:04
PROVIDERS: ATTEND Internal Medicine
DX: E11.9 Type 2 diabetes mellitus without complications (principal); M32.9 Systemic lupus erythematosus, unspecified
CPT/HCPCS: 36415; 80053; 80061; 81001; 82043; 82570; 83036; 84439; 84443; 84550; 85025; 86225; 86235

== ENCOUNTER → 2018-10-08 | Outpatient (CLI) | payer BC ==
[2018-10-08 08:14] LABS: ABSOLUTE BASOPHILS # (AUTO) 0.1 10^3/uL (0.0-0.2); ABSOLUTE EOSINOPHILS # (AUTO) 0.4 10^3/uL (0.0-0.6); ABSOLUTE LYMPHOCYTES (AUTO) 2.1 10^3/uL (0.5-4.7); ABSOLUTE MONOCYTES (AUTO) 0.7 10^3/uL (0.1-1.4); ABSOLUTE NEUT (AUTO) 3.9 10^3/uL (1.7-8.2); BASOPHILS % (AUTO) 1.2 % (0-2); EOSINOPHILS % (AUTO) 6.1 % (0-6); HEMATOCRIT 50.8 % (37.9-51.0); HEMOGLOBIN 17.8 g/dL (13.5-17.0); LYMPHOCYTES % (AUTO) 28.9 % (13-45); MEAN CORPUSCULAR HEMOGLOBIN 31.5 pg (27.0-33.4); MEAN CORPUSCULAR HGB CONC 35.1 g/dL (32.0-36.0); MEAN CORPUSCULAR VOLUME 90 fl (80-97); MONOCYTES % (AUTO) 9.7 % (3-13); PLATELET COUNT 193 10^3/uL (150-450); RED BLOOD COUNT 5.66 10^6/uL (4.35-5.55); RED CELL DISTRIBUTION WIDTH 13.1 % (11.5-14.0); SEGMENTED NEUTROPHILS % (AUTO) 54.1 % (42-78); TOTAL CELLS COUNTED % (AUTO) 100 %; WHITE BLOOD COUNT 7.3 10^3/uL (4.0-10.5)
[2018-10-08 08:19] LABS: APPEARANCE,URINE CLEAR; BILIRUBIN,URINE NEGATIVE (NEGATIVE); COLOR,URINE YELLOW; GLUCOSE, URINE NEGATIVE (NEGATIVE); KETONES,URINE NEGATIVE (NEGATIVE); LEUKOCYTE ESTERASE,URINE NEGATIVE (NEGATIVE); NITRITE,URINE NEGATIVE (NEGATIVE); PROTEIN,URINE NEGATIVE (NEGATIVE); URINE SPECIFIC GRAVITY 1.019; UROBILINOGEN,URINE NEGATIVE mg/dL (<2.0)
[2018-10-08 08:52] LABS: ALANINE AMINOTRANSFERASE 107 U/L (21-72); ALBUMIN 4.7 g/dL (3.5-5.0); ALKALINE PHOSPHATASE 68 U/L (38-126); ANION GAP 10 (5-19); ASPARTATE AMINO TRANSFERASE 51 U/L (17-59); BILIRUBIN,DIRECT 0.4 mg/dL (0.0-0.4); BILIRUBIN,TOTAL 1.4 mg/dL (0.2-1.3); BLOOD UREA NITROGEN 19 mg/dL (7-20); CALCIUM 10.1 mg/dL (8.4-10.2); CARBON DIOXIDE 25 mmol/L (22-30); CHLORIDE 108 mmol/L (98-107); CHOLESTEROL 206.42 mg/dL (0-200); GLUCOSE 132 mg/dL (75-110); POTASSIUM 4.3 mmol/L (3.6-5.0); TOTAL PROTEIN 7.3 g/dL (6.3-8.2); TRIGLYCERIDES 183 mg/dL (<150); URIC ACID 7.5 mg/dL (3.5-8.5)
[2018-10-08 09:03] LABS: DIRECT LDL 133 mg/dL (<100); FREE T4 (FREE THYROXINE) 0.76 ng/dL (0.78-2.19)
[2018-10-08 09:04] LABS: VLDL CHOLESTEROL 36.6 mg/dL (10-31)
[2018-10-08 09:17] LABS: THYROID STIMULATING HORMONE 1.92 uIU/mL (0.47-4.68)
[2018-10-09 11:37] LABS: CREATININE URINE 110.8 mg/dL (Not Estab.); MICROALBUMIN URINE 35.1 ug/mL (Not Estab.)
== END ==
LOC: OD 07:02
PROVIDERS: ATTEND Internal Medicine
DX: E11.9 Type 2 diabetes mellitus without complications (principal); I10 Essential (primary) hypertension
CPT/HCPCS: 36415; 80053; 80061; 81001; 82043; 82570; 83036; 84439; 84443; 84550; 85025

== ENCOUNTER 2018-11-22 06:22 | Inpatient (IN) | payer BC ==
[2018-11-22] MEDS ORDERED: PIPERACILLIN/TAZOBACTAM 4.5 GM VIAL IV ONE (06:57)
[2018-11-22] MEDS ORDERED: NORMAL SALINE 1000 ML 1,000 ML IV ONE ×2 (06:57→07:02)
[2018-11-22] MEDS ORDERED: ACETAMINOPHEN 325 MG TABLET PO ONE (06:57)
[2018-11-22] MEDS ORDERED: ONDANSETRON HCL INJ/PF 4 MG/2 ML SDV IV ONE (06:59)
[2018-11-22] MEDS ORDERED: NORMAL SALINE 1000 ML 1,000 ML IV PRN ×2 (07:00→18:37)
[2018-11-22 07:09] LABS: ABSOLUTE LYMPHOCYTES (AUTO) 0.6 10^3/uL (0.5-4.7); ABSOLUTE NEUT (AUTO) 5.3 10^3/uL (1.7-8.2); BASOPHILS % (AUTO) 0.3 % (0-2); EOSINOPHILS % (AUTO) 0.6 % (0-6); HEMATOCRIT 51.5 % (37.9-51.0); HEMOGLOBIN 17.7 g/dL (13.5-17.0); LYMPHOCYTES % (AUTO) 10.5 % (13-45); MEAN CORPUSCULAR HEMOGLOBIN 31.3 pg (27.0-33.4); MEAN CORPUSCULAR HGB CONC 34.4 g/dL (32.0-36.0); MEAN CORPUSCULAR VOLUME 91 fl (80-97); MONOCYTES % (AUTO) 0.5 % (3-13); PLATELET COUNT 180 10^3/uL (150-450); RED BLOOD COUNT 5.66 10^6/uL (4.35-5.55); RED CELL DISTRIBUTION WIDTH 12.9 % (11.5-14.0); SEGMENTED NEUTROPHILS % (AUTO) 88.1 % (42-78); TOTAL CELLS COUNTED % (AUTO) 100 %
--- NOTE | 2018-11-22 07:09 | ER Document Report ---
ED General <ANICETO NAZARIO Leyla - Last Filed: 11/22/18 17:43> - General TRAVEL OUTSIDE OF THE [place] 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 Also had some nausea and chest discomfort. Denies any precordial pain left arm numbness tingling sensation. Denies any abdominal pain diarrhea dysuria frequency urgency. Onset: Sudden Duration: Just prior to arrival Severity: Moderate to severe Quality: Shaky Context: Unknown Exacerbating factor and relieving factors: Unknown REVIEW OF SYSTEMS: CONSTITUTIONAL : As per history of complain EENT: Denies eye, ear, throat, or mouth pain or symptoms. Denies nasal or sinus congestion or discharge. Denies throat, tongue, or mouth swelling or difficulty swallowing. CARDIOVASCULAR: Denies chest pain. Denies palpitations or racing or irregular heart beat. Denies ankle edema. RESPIRATORY: Denies cough, cold, or chest congestion. Denies shortness of breath, difficulty breathing, or wheezing. GASTROINTESTINAL: Denies distention. Denies nausea, vomiting, or diarrhea. Denies blood in vomitus, stools, or per rectum. Denies black, tarry stools. Denies constipation. GENITOURINARY: Denies difficulty urinating, painful urination, burning, usman quency, blood in urine, or discharge. FEMALE GENITOURINARY: Denies vaginal bleeding, heavy or abnormal periods, irregular periods. Denies vaginal discharge or odor. MUSCULOSKELETAL: Denies back or neck pain or stiffness. Denies joint pain or swelling. SKIN: Denies rash, lesions or sores. HEMATOLOGIC : Denies easy bruising or bleeding. LYMPHATIC: Denies swollen, enlarged glands. NEUROLOGICAL: Denies confusion or altered mental status. Denies passing out or loss of consciousness. Denies dizziness or lightheadedness. Denies headache. Denies weakness or paralysis or loss of use of either side. Denies problems with gait or speech. Denies sensory loss, numbness, or tingling. Denies seizures. PSYCHIATRIC: Denies anxiety or stress. Denies depression, suicidal ideation, or homicidal ideation. ALL OTHER SYSTEMS REVIEWED AND NEGATIVE. PHYSICAL EXAMINATION: GENERAL: Shaking and shivering HEAD: Atraumatic, normocephalic. EYES: Pupils equal round and reactive to light, extraocular movements intact, conjunctiva are normal. ENT: Nares patent, oropharynx clear without exudates. Moist mucous membranes. NECK: Normal range of motion, supple without lymphadenopathy LUNGS: Breath sounds clear to auscultation bilaterally and equal. No wheezes rales or rhonchi. HEART: Regular rate and rhythm without murmurs ABDOMEN: Multiple abdominal scar noted, positive bowel sounds in all 4 quadrants soft, nontender, nondistended abdomen. No guarding, no rebound. No masses karon reciated. Examination of genitals-deferred Musculoskeletal: Normal range of motion, no pitting or edema. No cyanosis. NEUROLOGICAL: Cranial nerves grossly intact. Normal speech, normal gait. Nor mal sensory, motor exams. Lower leg has multiple erythematous lesions, which is not warm or tender to touch. PSYCH: Normal mood, normal affect. SKIN: Warm, Dry, normal turgor, no rashes or lesions noted. Dictation was performed using [employer] voice recognition software (BONITA REYNOSO) - [facility] Notes: Dictated (BRETT REYNOSO) - Related Data Allergies/Adverse Reactions: No Known Allergies Allergy (Verified 11/07/16 15:28) Past Medical History - Social History Smoking Status: Unknown if Ever Smoked Frequency of alcohol use: Rare Lives with: Family Family History: Hypertension - Past Medical History Cardiac Medical History: Reports: Hx Hypertension, Hx Heart Murmur - as a child Denies: Hx Atrial Fibrillation, Hx Congestive Heart Failure, Hx Coronary Artery Disease, Hx Heart Attack, Hx Hypercholesterolemia, Hx Peripheral Vascular Disease Renal/ Medical History: Denies: Hx Peritoneal Dialysis Musculoskeletal Medical History: Reports Hx Arthritis, Denies Hx Fibromyalgia, Denies Hx Muscular Dystrophy Traumatic Medical History: Denies: Hx Fractures Past Surgical History: Reports: Hx Abdominal Surgery - colostomy, Hx Herniorrhaphy, Hx Orthopedic Surgery - Rt hip arthroplasty 09/2016. Denies: Hx Appendectomy, Hx Bowel Surgery, Hx Cholecystectomy, Hx Coronary Artery Bypass Graft, Hx Gastric Bypass Surgery, Hx Pacemaker, Hx Tonsillectomy <BRETT REYNOSO - Last Filed: 11/27/18 19:55> Review of Systems <BRETT REYNOSO - Last Filed: 11/27/18 19:55> - Review of Systems Notes: Dictated (BRETT REYNOSO) Physical Exam <BRETT REYNOSO - Last Filed: 11/27/18 19:55> - Vital signs Vitals: Temp Pulse Resp BP Pulse Ox 97.9 F 109 H 21 H 148/89 H 94 11/22/18 06:24 11/22/18 06:24 11/22/18 06:24 11/22/18 06:24 11/22/18 06:24 - Notes Notes: Dictated (BRETT REYNOSO) Course - Laboratory Result Diagrams: 11/22/18 06:55 11/22/18 06:55 <ANICETO NAZARIO - Last Filed: 11/22/18 17:43> - Laboratory Result Diagrams: 11/25/18 05:14 11/25/18 05:14 - Diagnostic Test Radiology reviewed: Reports reviewed - CT of the abdomen reported by radiologist as right lower lobe infiltrate, no acute abdomen abdominal pathology. Cholelithiasis, hydrocele - EKG Interpretation by Ut EKG shows normal: Sinus rhythm - Supraventricular tachycardia at 130 bpm normal axis no acute ST-T wave changes. <BRETT REYNOSO - Last Filed: 11/27/18 19:55> - Re-evaluation Re-evalutation: 11/22/18 14:31 Given IV antibiotic IV fluids treated patient has sepsis at the onset of him being seen. (BRETT REYNOSO) - Vital Signs Vital signs: Temp Pulse Resp BP Pulse Ox 98.4 F 91 18 166/98 H 97 11/27/18 15:35 11/27/18 15:35 11/27/18 15:35 11/27/18 15:35 11/27/18 15:35 - Laboratory Laboratory results interpreted by mo: 11/22/18 11/22/18 11/22/18 06:35 06:55 06:55 RBC 5.66 H Hgb 17.7 H Hct 51.5 H Lymph % (Auto) 10.5 L Richardson % (Auto) 0.5 L Absolute Monos (auto) 0.0 L Seg Neutrophils % 88.1 H D-Dimer 4.98 H VBG pH Creatinine Est GFR (MDRD) Non-Af Glucose POC Glucose 157 H Lactic Acid Total Bilirubin Direct Bilirubin Urine Blood 11/22/18 11/22/18 11/22/18 06:55 06:55 06:55 RBC Hgb Hct Lymph % (Auto) Richardson % (Auto) Absolute Monos (auto) Seg Neutrophils % D-Dimer VBG pH 7.22 L Creatinine 1.36 H Est GFR (MDRD) Non-Af 53 L Glucose 183 H POC Glucose Lactic Acid 6.0 H Total Bilirubin 1.9 H Direct Bilirubin 0.5 H Urine Blood 11/22/18 08:18 RBC Hgb Hct Lymph % (Auto) Richardson % (Auto) Absolute Monos (auto) Seg Neutrophils % D-Dimer VBG pH Creatinine Est GFR (MDRD) Non-Af Glucose POC Glucose Lactic Acid Total Bilirubin Direct Bilirubin Urine Blood SMALL H Discharge - Discharge Admitting Provider: Bebeto Unit Admitted: [facility] <ANICETO NAZARIO - Last Filed: 11/22/18 17:43> - Discharge Admitting Provider: Bebeto <BRETT REYNOSO - Last Filed: 11/27/18 19:55> - Discharge Clinical Impression: Sepsis Qualifiers: Sepsis type: sepsis due to unspecified organism Sepsis acute organ dysfunction status: without acute organ dysfunction Qualified Code(s): A41.9 - Sepsis, unspecified organism Right lower lobe pneumonia Qualifiers: Pneumonia type: due to unspecified organism Qualified Code(s): J18.1 - Lobar pneumonia, unspecified organism Condition: Fair Disposition: ADMITTED INPATIENT
[2018-11-22 07:10] LABS: VENOUS BLOOD BASE EXCESS -5.8 mmol/L; VENOUS BLOOD HCO3 23.1 mmol/L (20-32); VENOUS BLOOD PCO2 58.1 mmHg (35-63); VENOUS BLOOD PH 7.22 (7.30-7.42)
[2018-11-22 07:15] LABS: INTERNATIONAL RATION (INR) 1.04; PROTHROMBIN TIME 13.6 SEC (11.4-15.4)
[2018-11-22 07:30] LABS: ALBUMIN 4.7 g/dL (3.5-5.0); ALKALINE PHOSPHATASE 93 U/L (38-126); ANION GAP 15 (5-19); ASPARTATE AMINO TRANSFERASE 52 U/L (17-59); BILIRUBIN,DIRECT 0.5 mg/dL (0.0-0.4); BILIRUBIN,TOTAL 1.9 mg/dL (0.2-1.3); BLOOD UREA NITROGEN 20 mg/dL (7-20); CALCIUM 10.1 mg/dL (8.4-10.2); CARBON DIOXIDE 24 mmol/L (22-30); CHLORIDE 103 mmol/L (98-107); GLUCOSE 183 mg/dL (75-110); POTASSIUM 4.4 mmol/L (3.6-5.0); TOTAL PROTEIN 7.1 g/dL (6.3-8.2)
[2018-11-22 07:34] LABS: D-DIMER 4.98 ug/mL (0.00-0.50)
--- NOTE | 2018-11-22 07:37 | RADIOLOGY REPORT (SQ) ---
EXAM DESCRIPTION: X-ray single view chest. CLINICAL HISTORY: 58 years Male, Chest pain chest pain COMPARISON: 08/21/2016 TECHNIQUE: Single portable x-ray view of the chest performed on 11/22/2018. FINDINGS: The lungs are well expanded and are clear. There is no evidence of a pneumothorax. The cardiac silhouette is normal in size and configuration. The mediastinal contours are normal. No acute osseous abnormality is identified. No focal soft tissue abnormalities are seen. Lines and tubes: None. IMPRESSION: No evidence of acute intrathoracic disease.
--- NOTE | 2018-11-22 07:55 | EKG REPORT ---
SEVERITY:- ABNORMAL ECG - SINUS TACHYCARDIA PRAVEEN, CONSIDER BIATRIAL ABNORMALITIES : Confirmed by: Isabela Thakur 22-Nov-2018 07:54:57
[2018-11-22 08:58] LABS: APPEARANCE,URINE CLEAR; BILIRUBIN,URINE NEGATIVE (NEGATIVE); COLOR,URINE YELLOW; GLUCOSE, URINE NEGATIVE (NEGATIVE); KETONES,URINE NEGATIVE (NEGATIVE); LEUKOCYTE ESTERASE,URINE NEGATIVE (NEGATIVE); NITRITE,URINE NEGATIVE (NEGATIVE); PROTEIN,URINE NEGATIVE (NEGATIVE); URINE SPECIFIC GRAVITY 1.011; UROBILINOGEN,URINE NEGATIVE mg/dL (<2.0)
[2018-11-22] MEDS ORDERED: VANCOMYCIN HCL INJ 1000 MG VIAL IV ONE (09:35)
--- NOTE | 2018-11-22 12:37 | RADIOLOGY REPORT (SQ) ---
EXAM DESCRIPTION: CT ABD/PELVIS WITH IV ORAL COMPLETED DATE/TIME: 11/22/2018 12:10 pm REASON FOR STUDY: Sepsis, multiple abdominal surgery COMPARISON: 09/20/2016 TECHNIQUE: CT scan of the abdomen and pelvis performed using helical scanning technique with dynamic intravenous contrast injection. No oral contrast. Images reviewed with lung, soft tissue, and bone windows. Reconstructed coronal and sagittal MPR images reviewed. Delayed images for evaluation of the urinary system also acquired. All images stored on PACS. All CT scanners at this facility use dose modulation, iterative reconstruction, and/or weight based d osing when appropriate to reduce radiation dose to as low as reasonably achievable (ALARA). [facility]: Dose Right [facility]: CareDose [facility]: Dose Right [facility]: Teradose 4D [facility]: Familybuilder CONTRAST TYPE AND DOSE: contrast/concentration: Isovue 350.00 mg/ml; Total Contrast Delivered: 100.0 ml; Total Saline Delivered: 70.0 ml RENAL FUNCTION: BUN 20 creatinine 1.36. RADIATION DOSE: CT Rad equipment meets quality standard of care and radiation dose reduction techniq ues were employed. CTDIvol: 12.6 - 16.2 mGy. DLP: 1960 mGy-cm.. LIMITATIONS: None. FINDINGS: LOWER CHEST: Dependent atelectasis. Airspace disease in right lower lobe, atelectasis berry mary pneumonia. LIVER: The liver is diffusely hypoattenuating. There is no mass. SPLEEN: Normal size. No focal lesions. PANCREAS: No masses. No significant calcifications. No adjacent inflammation or peripancreatic fluid collections. Pancreatic duct not dilated. GALLBLADDER: A small gallstone is present. ADRENAL GLANDS: No significant masses or asymmetry. RIGHT KIDNEY AND URETER: No solid masses. No significant calcifications. No hydronephrosis or hyd roureter. LEFT KIDNEY AND URETER: No solid masses. No significant calcifications. No hydronephrosis or hydr oureter. AORTA AND VESSELS: No aneurysm. No dissection. Renal arteries, SMA, celiac without stenosis. RETROPERITONEUM: No retroperitoneal adenopathy, hemorrhage or masses. BOWEL AND PERITONEAL CAVITY: Partial colectomy. No bowel obstruction. No inflammatory changes. No obvious bowel mass. APPENDIX: Surgically absent. PELVIS: No mass. No free fluid. Normal bladder. ABDOMINAL WALL: No masses. No hernias. BONES: No significant or acute findings. OTHER: There is a large left- scrotal hydrocele. IMPRESSION: 1. Airspace disease in the right lower lobe. Pneumonia versus atelectasis. 2. Hepatic steatosis. 3. Large hydrocele. 4. Cholelithiasis. TECHNICAL DOCUMENTATION: JOB ID: [id number] Quality ID # [id number]: Final reports with documentation of one or more dose reduction techniques (e.g., Au tomated exposure control, adjustment of the mA and/or kV according to patient size, use of iterative reconstruction technique) 2010 [employer]- All Rights Reserved Reading location - IP/workstation name: [email or web address]
--- NOTE | 2018-11-22 14:46 | EKG REPORT ---
SEVERITY:- OTHERWISE NORMAL ECG - SINUS TACHYCARDIA : Confirmed by: Cynthia Herrera MD 22-Nov-2018 14:46:01
[2018-11-22] MEDS: CEFTRIAXONE 1 GM/D5W RTU 1 GM/50 ML RTUPB IV SCH (19:58)
[2018-11-22 21:10] LABS: ARTERIAL BLOOD BASE EXCESS -3.5 mmol/L; ARTERIAL BLOOD H2CO3 0.91 mmol/L (1.05-1.35); ARTERIAL BLOOD HCO3 19.5 mmol/L (20-24); ARTERIAL BLOOD O2 SATURATION 93.1 % (94-98); ARTERIAL BLOOD PCO2 30.2 mmHg (35-45); ARTERIAL BLOOD PH 7.43 (7.35-7.45); ARTERIAL BLOOD PO2 63.4 mmHg (80-100); ARTERIAL BLOOD TOTAL CO2 20.4 mmol/L (23-27)
[2018-11-22 21:11] LABS: ARTERIAL BLOOD FIO2 2L
--- NOTE | 2018-11-22 23:43 | PDOC H&P ---
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 In the emergency room he was evaluated, there was concern for sepsis in the emergency room a CAT scan of the abdomen and pelvis with IV contrast was obtained it demonstrated a diffusely hypoattenuating liver, there is no mass lesion the pancreas there was no masses there was no adjacent inflammation or peripancreatic fluid collection. There was a small gallstone in the gallbladder the adrenal gland was normal, There was also incidental finding of a large hydrocele.The initial blood culture demonstrated gram-negative vanessa suggesting gram-negative septicemia.The source of the gram negative vanessa is not apparent at this time ,the urinalysis, the urine dipstick was negative. The arterial blood gas that was done on FiO2 2 L, pH 7.43 PCO2 33.4 bicarbonate 19.5 Because of the hypoxemia I requested for CT angiography of the chest to be obtained but this could not be done because he also recently had a CT scan of abdomen and pelvis with IV contrast, the policy of the x-ray department is that patient has to wait [address] angiography of the chest could be obtained.I am more particularly concerned because of the elevated d-dimer.I was about to initiate empirically anticoagulation with IV heparin but the stool was positive for blood , the Benefit- risk ratio was small ,it was too high of a risk, to initiate anticoagulation empirically in the patient with suspected PE that also have a positive blood in the stool, I felt it is better to confirm pulmonary embolism with a CT angiogram of the chest before initiating anticoagulation.He has a history of systemic lupus erythematosus, type 2 diabetes mellitus Past Medical History Cardiac Medical History: Reports: Hypertension, Heart Murmur - as a child Endocrine Medical History: Reports: Diabetes Mellitus Type 2 Musculoskeltal Medical History: Reports: Arthritis, Other - Systemic lupus atheromatosis Past Surgical History Past Surgical History: Reports: Herniorrhaphy, Orthopedic Surgery - Rt hip arthroplasty 09/2016 Social History Smoking Status: Never Smoker Frequency of Alcohol Use: None Hx Recreational Drug Use: No Drugs: None Hx Prescription Drug Abuse: No Family History Family History: Hypertension Parental Family History Reviewed: Yes Children Family History Reviewed: Yes Sibling(s) Family History Reviewed.: Yes Medication/Allergy Home Medications: Diclofenac Sodium/Misoprostol [Arthrotec 50 mg-200 Mcg Tab] 1 tab PO BID 11/22/18 Hydroxychloroquine Sulfate [Plaquenil 200 mg Tablet] 200 mg PO BID 11/22/18 Lisinopril/Hydrochlorothiazide [Zestoretic 20-12.5 mg Tablet] 1 tab PO DAILY 11/22/18 Metformin HCl [Glucophage 500 mg Tablet] 500 mg PO DAILY 11/22/18 Allergies/Adverse Reactions: No Known Allergies Allergy (Verified 11/07/16 15:28) Review of Systems Constitutional: ABSENT: chills, fever(s), headache(s), weight gain, weight loss Eyes: ABSENT: visual disturbances Ears: ABSENT: hearing changes Cardiovascular: ABSENT: chest pain, dyspnea on exertion, edema, orthropnea, palpitations Respiratory: ABSENT: cough, hemoptysis Gastrointestinal: ABSENT: abdominal pain, constipation, diarrhea, hematemesis, hematochezia, nausea, vomiting Genitourinary: ABSENT: dysuria, hematuria Musculoskeletal: ABSENT: joint swelling Integumentary: ABSENT: rash, wounds Neurological: ABSENT: abnormal gait, abnormal speech, confusion, dizziness, focal weakness, syncope Psychiatric: ABSENT: anxiety, depression, homidical ideation, suicidal ideation Endocrine: ABSENT: cold intolerance, heat intolerance, menstrual abnormalities, polydipsia, polyuria Hematologic/Lymphatic: ABSENT: easy bleeding, easy bruising, lymphadenopathy Physical Exam Vital Signs: Temp Pulse Resp BP Pulse Ox 98.6 F 86 20 138/81 H 97 11/22/18 21:44 11/22/18 21:44 11/22/18 21:44 11/22/18 21:44 11/22/18 21:44 Intake & Output 11/21/18 11/22/18 11/23/18 06:59 06:59 06:59 Intake Total 3050 Balance 3050 Weight 98.747 kg General appearance: PRESENT: no acute distress Head exam: PRESENT: atraumatic, normocephalic Eye exam: PRESENT: PERRLA Ear exam: PRESENT: normal external ear exam Mouth exam: PRESENT: moist, tongue midline Neck exam: PRESENT: full ROM Respiratory exam: PRESENT: clear to auscultation hammad Cardiovascular exam: PRESENT: RRR, +S1, +S2 Pulses: PRESENT: normal dorsalis pedis pul, +2 pedal pulses bilateral Vascular exam: PRESENT: normal capillary refill GI/Abdominal exam: PRESENT: normal bowel sounds, soft Rectal exam: PRESENT: deferred Neurological exam: PRESENT: alert, CN II-XII grossly intact Psychiatric exam: PRESENT: appropriate affect, normal mood Skin exam: PRESENT: dry, intact, warm. ABSENT: cyanosis, rash Results Laboratory Results: 11/22/18 06:55 11/22/18 06:55 11/22/18 11/22/18 11/22/18 06:55 06:55 06:55 WBC 6.0 RBC 5.66 H Hgb 17.7 H Hct 51.5 H MCV 91 MCH 31.3 MCHC 34.4 RDW 12.9 Plt Count 180 Seg Neutrophils % 88.1 H Carbonic Acid HCO3/H2CO3 Ratio ABG pH ABG pCO2 ABG pO2 ABG HCO3 ABG O2 Saturation ABG Base Excess VBG pH VBG pCO2 VBG HCO3 VBG Base Excess FiO2 Sodium 141.6 Potassium 4.4 Chloride 103 Carbon Dioxide 24 Anion Gap 15 BUN 20 Creatinine 1.36 H Est GFR ( Amer) > 60 Glucose 183 H Lactic Acid 6.0 H Calcium 10.1 Total Bilirubin 1.9 H AST 52 Alkaline Phosphatase 93 Total Protein 7.1 Albumin 4.7 Urine Color Urine Appearance Urine pH Ur Specific [place] Urine Protein Urine Glucose (UA) Urine Ketones Urine Blood Urine Nitrite Ur Leukocyte Esterase Urine WBC (Auto) Urine RBC (Auto) 11/22/18 11/22/18 11/22/18 06:55 08:18 20:50 WBC RBC Hgb Hct MCV MCH MCHC RDW Plt Count Seg Neutrophils % Carbonic Acid 0.91 L HCO3/H2CO3 Ratio 21:1 ABG pH 7.43 ABG pCO2 30.2 L ABG pO2 63.4 L ABG HCO3 19.5 L ABG O2 Saturation 93.1 L ABG Base Excess -3.5 VBG pH 7.22 L VBG pCO2 58.1 VBG HCO3 23.1 VBG Base Excess -5.8 FiO2 2L Sodium Potassium Chloride Carbon Dioxide Anion Gap BUN Creatinine Est GFR ( Amer) Glucose Lactic Acid Calcium Total Bilirubin AST Alkaline Phosphatase Total Protein Albumin Urine Color YELLOW Urine Appearance CLEAR Urine pH 5.0 Ur Specific [place] 1.011 Urine Protein NEGATIVE Urine Glucose (UA) NEGATIVE Urine Ketones NEGATIVE Urine Blood SMALL H Urine Nitrite NEGATIVE Ur Leukocyte Esterase NEGATIVE Urine WBC (Auto) 1 Urine RBC (Auto) 2 Impressions: Chest X-Ray 11/22/18 06:57 IMPRESSION: No evidence of acute intrathoracic disease. Abdomen/Pelvis CT 11/22/18 09:36 IMPRESSION: 1. Airspace disease in the right lower lobe. Pneumonia versus atelectasis. 2. Hepatic steatosis. 3. Large hydrocele. 4. Cholelithiasis. Assessment & Plan - Diagnosis (1) Gram negative sepsis Is this a current diagnosis for this admission?: Yes Plan: The source of the sepsis is not clear, Start empiric IV antibiotic (2) Hypoxemia Is this a current diagnosis for this admission?: Yes (3) Systemic lupus erythematosus Qualifiers: Systemic lupus erythematosus type: unspecified Systemic lupus erythematosus organ involvement: unspecified Qualified Code(s): M32.9 - Systemic lupus erythematosus, unspecified Is this a current diagnosis for this admission?: Yes
[2018-11-22] MEDS ORDERED: HYDROXYCHLOROQUINE SULFATE 200 MG TABLET PO ONE (23:59)
[2018-11-23] MEDS ORDERED: HEPARIN SOD (PORCINE) 1,000 UNIT/ML 10 ML VIAL IV ONE (00:30)
[2018-11-23 00:53] LABS: ABSOLUTE BASOPHILS # (AUTO) 0.1 10^3/uL (0.0-0.2); ABSOLUTE EOSINOPHILS # (AUTO) 0.1 10^3/uL (0.0-0.6); ABSOLUTE NEUT (AUTO) 15.6 10^3/uL (1.7-8.2); BASOPHILS % (AUTO) 0.4 % (0-2); EOSINOPHILS % (AUTO) 0.8 % (0-6); HEMATOCRIT 44.1 % (37.9-51.0); LYMPHOCYTES % (AUTO) 5.7 % (13-45); MEAN CORPUSCULAR HEMOGLOBIN 31.6 pg (27.0-33.4); MEAN CORPUSCULAR HGB CONC 34.7 g/dL (32.0-36.0); MEAN CORPUSCULAR VOLUME 91 fl (80-97); MONOCYTES % (AUTO) 5.8 % (3-13); PLATELET COUNT 113 10^3/uL (150-450); RED BLOOD COUNT 4.84 10^6/uL (4.35-5.55); RED CELL DISTRIBUTION WIDTH 12.9 % (11.5-14.0); SEGMENTED NEUTROPHILS % (AUTO) 87.3 % (42-78); TOTAL CELLS COUNTED % (AUTO) 100 %
[2018-11-23 00:58] LABS: INTERNATIONAL RATION (INR) 1.24; PROTHROMBIN TIME 15.7 SEC (11.4-15.4)
[2018-11-23 01:04] LABS: WHITE BLOOD COUNT 17.9 10^3/uL (4.0-10.5)
[2018-11-23 01:05] LABS: HEMOGLOBIN 15.3 g/dL (13.5-17.0)
[2018-11-23 01:06] LABS: PHOSPHORUS 3.2 mg/dL (2.5-4.5)
[2018-11-23 01:22] LABS: CREATINE KINASE MB 2.8 ng/mL (<4.55); TROPONIN I 0.014 ng/mL
[2018-11-23 01:24] LABS: FREE T4 (FREE THYROXINE) 0.94 ng/dL (0.78-2.19)
[2018-11-23 01:38] LABS: THYROID STIMULATING HORMONE 1.37 uIU/mL (0.47-4.68)
[2018-11-23 03:36] LABS: APPEARANCE,URINE CLEAR; BILIRUBIN,URINE NEGATIVE (NEGATIVE); COLOR,URINE YELLOW; GLUCOSE, URINE NEGATIVE (NEGATIVE); KETONES,URINE NEGATIVE (NEGATIVE); LEUKOCYTE ESTERASE,URINE NEGATIVE (NEGATIVE); NITRITE,URINE NEGATIVE (NEGATIVE); PROTEIN,URINE NEGATIVE (NEGATIVE); URINE SPECIFIC GRAVITY 1.013; UROBILINOGEN,URINE NEGATIVE mg/dL (<2.0)
[2018-11-23 03:57] LABS: URINE AMPHETAMINES SCREEN NEGATIVE; URINE BARBITURATES SCREEN NEGATIVE; URINE BENZODIAZEPINES SCREEN NEGATIVE; URINE COCAINE SCREEN NEGATIVE; URINE MARIJUANA (THC) SCREEN NEGATIVE; URINE METHADONE SCREEN NEGATIVE; URINE PHENCYCLIDINE SCREEN NEGATIVE
[2018-11-23 07:27] LABS: ABSOLUTE EOSINOPHILS # (AUTO) 0.2 10^3/uL (0.0-0.6); ABSOLUTE LYMPHOCYTES (AUTO) 0.9 10^3/uL (0.5-4.7); ABSOLUTE MONOCYTES (AUTO) 0.9 10^3/uL (0.1-1.4); ABSOLUTE NEUT (AUTO) 12.9 10^3/uL (1.7-8.2); BASOPHILS % (AUTO) 0.2 % (0-2); EOSINOPHILS % (AUTO) 1.4 % (0-6); HEMATOCRIT 42.7 % (37.9-51.0); HEMOGLOBIN 14.9 g/dL (13.5-17.0); LYMPHOCYTES % (AUTO) 6.1 % (13-45); MEAN CORPUSCULAR HEMOGLOBIN 31.4 pg (27.0-33.4); MEAN CORPUSCULAR HGB CONC 34.9 g/dL (32.0-36.0); MEAN CORPUSCULAR VOLUME 90 fl (80-97); MONOCYTES % (AUTO) 6.3 % (3-13); PLATELET COUNT 112 10^3/uL (150-450); RED BLOOD COUNT 4.75 10^6/uL (4.35-5.55); RED CELL DISTRIBUTION WIDTH 13.2 % (11.5-14.0); TOTAL CELLS COUNTED % (AUTO) 100 %
[2018-11-23 07:48] LABS: ALBUMIN 3.4 g/dL (3.5-5.0); ALKALINE PHOSPHATASE 58 U/L (38-126); ANION GAP 8 (5-19); ASPARTATE AMINO TRANSFERASE 71 U/L (17-59); BILIRUBIN,DIRECT 0.3 mg/dL (0.0-0.4); BILIRUBIN,TOTAL 1.9 mg/dL (0.2-1.3); BLOOD UREA NITROGEN 15 mg/dL (7-20); CALCIUM 8.5 mg/dL (8.4-10.2); CARBON DIOXIDE 22 mmol/L (22-30); CHLORIDE 107 mmol/L (98-107); CHOLESTEROL 105.46 mg/dL (0-200); CREATINE KINASE 323 U/L (55-170); GLUCOSE 163 mg/dL (75-110); POTASSIUM 3.9 mmol/L (3.6-5.0); TOTAL PROTEIN 5.6 g/dL (6.3-8.2); TRIGLYCERIDES 177 mg/dL (<150)
[2018-11-23 07:59] LABS: DIRECT LDL 65 mg/dL (<100)
[2018-11-23 08:01] LABS: CREATINE KINASE MB 2.46 ng/mL (<4.55); TROPONIN I 0.014 ng/mL
[2018-11-23 08:04] LABS: VLDL CHOLESTEROL 35.4 mg/dL (10-31)
[2018-11-23] MEDS ORDERED: HYDROXYCHLOROQUINE SULFATE 200 MG TABLET PO SCH (10:00)
[2018-11-23 13:07] LABS: CREATINE KINASE MB 2.21 ng/mL (<4.55); TROPONIN I 0.016 ng/mL
--- NOTE | 2018-11-23 13:31 | RADIOLOGY REPORT (SQ) ---
EXAM DESCRIPTION: CTA CHEST COMPLETED DATE/TIME: 11/23/2018 1:15 pm REASON FOR STUDY: chest pain ,elevated d-dimer ,? PE COMPARISON: Chest x-ray dated 11/22/2018 TECHNIQUE: CT scan of the chest performed using helical scanning technique with dynamic intravenous contrast injection. Images reviewed with lung, soft tissue and bone windows. Reconstructed coronal and sagittal MPR images reviewed. Additional 3 dimensional post-processing performed to develop Maximal Intensity Projection images (IL P). All images stored on PACS. All CT scanners at this facility use dose modulation, iterative reconstruction, and/or weight based d osing when appropriate to reduce radiation dose to as low as reasonably achievable (ALARA). [facility]: Dose Right [facility]: CareDose [facility]: Dose Right [facility]: Teradose 4D [facility]: [employer] CONTRAST TYPE AND DOSE: contrast/concentration: Isovue 350.00 mg/ml; Total Contrast Delivered: 62.0 ml; Total Saline Delivered: 80.0 ml Contrast bolus adequate for pulmonary arteries and aorta. RENAL FUNCTION: BUN 20, creatinine 1.36 RADIATION DOSE: CT Rad equipment meets quality standard of care and radiation dose reduction techniq ues were employed. CTDIvol: 14.8 - 22.5 mGy. DLP: 626 mGy-cm. . LIMITATIONS: None. FINDINGS: LUNGS AND PLEURA: There is bibasilar pleural thickening and atelectasis. There is bandlik e atelectasis in the superior segment of the right lower lobe as well. No consolidation. AORTA AND GREAT VESSELS: No aneurysm. Contrast bolus not optimized for the aorta. HEART: No pericardial effusion. No significant coronary artery calcifications. PULMONARY ARTERIES: No emboli visualized in the main pulmonary arteries or the segmental branches. HILAR AND MEDIASTINAL STRUCTURES: No identified masses or abnormal nodes. HARDWARE: None in the chest. UPPER ABDOMEN: No significant findings. Limited exam. THYROID AND OTHER SOFT TISSUES: No masses. No adenopathy. BONES: No acute or significant finding. 3D MIPS: Confirm above findings. OTHER: No other significant finding. IMPRESSION: 1. No pulmonary emboli. 2. Bibasilar atelectasis and pleural thickening. Bandlike atelectasis in the superior segment of th e right lower lobe. COMMENT: Quality ID # [id number]: Final reports with documentation of one or more dose reduction techniques (e.g., Automated exposure control, adjustment of the mA and/or kV according to patient size, use of iterative reconstruction technique) TECHNICAL DOCUMENTATION: JOB ID: [id number] [employer]- All Rights Reserved Reading location - IP/workstation name: [email or web address]
[2018-11-23] MEDS: CEFTRIAXONE 1 GM/D5W RTU 1 GM/50 ML RTUPB IV SCH (17:08)
[2018-11-23] MEDS: NORMAL SALINE 1000 ML 1,000 ML IV PRN (17:08)
[2018-11-23] MEDS ORDERED: DEXTROSE 40% GEL 15 GM TUBE PO PRN (19:00)
[2018-11-23] MEDS ORDERED: DEXTROSE 50%-WATER SYRINGE 25 GM/50 ML DOSE IV PRN (19:00)
[2018-11-23] MEDS ORDERED: DEXTROSE 50%-WATER SYRINGE 12.5 GM/25 ML DOSE IV PRN (19:00)
[2018-11-23] MEDS ORDERED: DEXTROSE 40% GEL 15 GM TUBE X 2 PO PRN (19:00)
[2018-11-23] MEDS ORDERED: GLUCAGON,HUMAN RECOMB 1 MG INJ IM PRN (19:00)
[2018-11-23] MEDS: INSULIN LISPRO 100 UNIT/ML 3 ML VIAL SUBCUT SCH (21:34)
--- NOTE | 2018-11-23 22:19 | PDOC PROGRESS REPORT ---
Subjective Progress Note for:: 11/23/18 Subjective:: Patient seen by the bedside, CT angiography of the chest done today demonstrated bibasilar pleural thickening there is bandlike atelectasis in the superior segment of the right lower lobe no consolidation no emboli visualized the main pulmonary arteries Reason For Visit: HYPOXEMIA,ELEVATED D-DIMER,? PE Physical Exam Vital Signs: Temp Pulse Resp BP Pulse Ox 98.6 F 87 22 H 144/93 H 91 L 11/23/18 19:25 11/23/18 19:25 11/23/18 19:25 11/23/18 19:25 11/23/18 19:25 Intake & Output 11/22/18 11/23/18 11/24/18 06:59 06:59 06:59 Intake Total 4050 890 Output Total 1525 Balance 2525 890 Weight 98.747 kg 99.1 kg General appearance: PRESENT: no acute distress Eye exam: PRESENT: PERRLA Respiratory exam: PRESENT: clear to auscultation hammad Cardiovascular exam: PRESENT: +S1, +S2 GI/Abdominal exam: PRESENT: soft Neurological exam: PRESENT: alert, CN II-XII grossly intact Results Laboratory Results: 11/23/18 07:18 11/23/18 07:18 11/23/18 11/23/18 11/23/18 00:38 00:38 00:38 WBC RBC Hgb Hct MCV MCH MCHC RDW Plt Count Seg Neutrophils % Sodium Potassium Chloride Carbon Dioxide Anion Gap BUN Creatinine Est GFR ( Amer) Glucose Calcium Phosphorus 3.2 Magnesium Total Bilirubin AST Alkaline Phosphatase Ammonia 10.9 Total Protein Albumin Triglycerides Cholesterol LDL Cholesterol Direct VLDL Cholesterol HDL Cholesterol Amylase 65 Lipase 375.2 H TSH 1.37 Free T4 0.94 Urine Color Urine Appearance Urine pH Ur Specific [place] Urine Protein Urine Glucose (UA) Urine Ketones Urine Blood Urine Nitrite Ur Leukocyte Esterase Urine WBC (Auto) Urine RBC (Auto) 11/23/18 11/23/18 11/23/18 00:38 03:30 07:18 WBC 17.9 H D RBC 4.84 Hgb 15.3 D Hct 44.1 MCV 91 MCH 31.6 MCHC 34.7 RDW 12.9 Plt Count 113 L Seg Neutrophils % 87.3 H Sodium 137.2 Potassium 3.9 Chloride 107 Carbon Dioxide 22 Anion Gap 8 BUN 15 Creatinine 1.14 Est GFR ( Amer) > 60 Glucose 163 H Calcium 8.5 Phosphorus Magnesium 1.5 L Total Bilirubin 1.9 H AST 71 H Alkaline Phosphatase 58 Ammonia Total Protein 5.6 L Albumin 3.4 L Triglycerides 177 H Cholesterol 105.46 LDL Cholesterol Direct 65 VLDL Cholesterol 35.4 H HDL Cholesterol 31 L Amylase Lipase TSH Free T4 Urine Color YELLOW Urine Appearance CLEAR Urine pH 6.0 Ur Specific [place] 1.013 Urine Protein NEGATIVE Urine Glucose (UA) NEGATIVE Urine Ketones NEGATIVE Urine Blood NEGATIVE Urine Nitrite NEGATIVE Ur Leukocyte Esterase NEGATIVE Urine WBC (Auto) 0 Urine RBC (Auto) 1 11/23/18 07:18 WBC 15.0 H RBC 4.75 Hgb 14.9 Hct 42.7 MCV 90 MCH 31.4 MCHC 34.9 RDW 13.2 Plt Count 112 L Seg Neutrophils % 86.0 H Sodium Potassium Chloride Carbon Dioxide Anion Gap BUN Creatinine Est GFR ( Amer) Glucose Calcium Phosphorus Magnesium Total Bilirubin AST Alkaline Phosphatase Ammonia Total Protein Albumin Triglycerides Cholesterol LDL Cholesterol Direct VLDL Cholesterol HDL Cholesterol Amylase Lipase TSH Free T4 Urine Color Urine Appearance Urine pH Ur Specific [place] Urine Protein Urine Glucose (UA) Urine Ketones Urine Blood Urine Nitrite Ur Leukocyte Esterase Urine WBC (Auto) Urine RBC (Auto) 11/22/18 08:18 Clean Catch Midstream Urine Culture - Final 5,000 col/ml 11/23/18 11/23/18 11/23/18 00:38 00:38 00:38 Creatine Kinase 85 CK-MB (CK-2) 2.80 Troponin I 0.014 NT-Pro-B Natriuret Pep 520 11/23/18 11/23/18 11/23/18 07:18 07:18 12:26 Creatine Kinase 323 H 286 H CK-MB (CK-2) 2.46 Troponin I 0.014 NT-Pro-B Natriuret Pep 11/23/18 12:26 Creatine Kinase CK-MB (CK-2) 2.21 Troponin I 0.016 NT-Pro-B Natriuret Pep Impressions: Chest X-Ray 11/22/18 06:57 IMPRESSION: No evidence of acute intrathoracic disease. Abdomen/Pelvis CT 11/22/18 09:36 IMPRESSION: 1. Airspace disease in the right lower lobe. Pneumonia versus atelectasis. 2. Hepatic steatosis. 3. Large hydrocele. 4. Cholelithiasis. Chest/Abdomen CTA 11/23/18 10:00 IMPRESSION: 1. No pulmonary emboli. 2. Bibasilar atelectasis and pleural thickening. Bandlike atelectasis in the superior segment of the right lower lobe. Assessment & Plan - Diagnosis (1) Gram negative sepsis Is this a current diagnosis for this admission?: Yes Plan: Continue IV antibiotic, patient also expresses his desire to be DNR (2) Hypoxemia Is this a current diagnosis for this admission?: Yes Plan: There is no explanation for the hypoxemia CT angiography was negative for pulmonary embolism, one need to rule out chronic thromboembolic pulmonary hypertension to diagnose this condition a VQ scan will be ordered (3) Systemic lupus erythematosus Qualifiers: Systemic lupus erythematosus type: unspecified Systemic lupus erythematosus organ involvement: unspecified Qualified Code(s): M32.9 - Systemic lupus erythematosus, unspecified Is this a current diagnosis for this admission?: Yes (4) Hydrocele Qualifiers: Hydrocele type: unspecified Qualified Code(s): N43.3 - Hydrocele, unspecified Is this a current diagnosis for this admission?: Yes
[2018-11-24 03:43] LABS: C DIFFICILE GDH NEGATIVE (NEGATIVE)
[2018-11-24 06:55] LABS: ABSOLUTE BASOPHILS # (AUTO) 0.1 10^3/uL (0.0-0.2); ABSOLUTE EOSINOPHILS # (AUTO) 0.4 10^3/uL (0.0-0.6); ABSOLUTE LYMPHOCYTES (AUTO) 1.2 10^3/uL (0.5-4.7); ABSOLUTE NEUT (AUTO) 9.5 10^3/uL (1.7-8.2); BASOPHILS % (AUTO) 0.6 % (0-2); EOSINOPHILS % (AUTO) 3.3 % (0-6); HEMOGLOBIN 15.3 g/dL (13.5-17.0); LYMPHOCYTES % (AUTO) 9.7 % (13-45); MEAN CORPUSCULAR HEMOGLOBIN 31.5 pg (27.0-33.4); MEAN CORPUSCULAR HGB CONC 34.8 g/dL (32.0-36.0); MEAN CORPUSCULAR VOLUME 91 fl (80-97); MONOCYTES % (AUTO) 8.6 % (3-13); PLATELET COUNT 127 10^3/uL (150-450); RED BLOOD COUNT 4.87 10^6/uL (4.35-5.55); RED CELL DISTRIBUTION WIDTH 12.8 % (11.5-14.0); SEGMENTED NEUTROPHILS % (AUTO) 77.8 % (42-78); TOTAL CELLS COUNTED % (AUTO) 100 %; WHITE BLOOD COUNT 12.2 10^3/uL (4.0-10.5)
[2018-11-24 07:15] LABS: ALBUMIN 3.5 g/dL (3.5-5.0); ALKALINE PHOSPHATASE 72 U/L (38-126); ANION GAP 9 (5-19); ASPARTATE AMINO TRANSFERASE 56 U/L (17-59); BILIRUBIN,DIRECT 0.2 mg/dL (0.0-0.4); BILIRUBIN,TOTAL 0.9 mg/dL (0.2-1.3); BLOOD UREA NITROGEN 15 mg/dL (7-20); CALCIUM 8.6 mg/dL (8.4-10.2); CARBON DIOXIDE 21 mmol/L (22-30); CHLORIDE 108 mmol/L (98-107); GLUCOSE 139 mg/dL (75-110); POTASSIUM 4.1 mmol/L (3.6-5.0)
[2018-11-24] MEDS: INSULIN LISPRO 100 UNIT/ML 3 ML VIAL SUBCUT SCH ×4 (08:17→21:49)
[2018-11-24 09:43] LABS: APPEARANCE,URINE CLEAR; BILIRUBIN,URINE NEGATIVE (NEGATIVE); COLOR,URINE YELLOW; GLUCOSE, URINE NEGATIVE (NEGATIVE); KETONES,URINE NEGATIVE (NEGATIVE); LEUKOCYTE ESTERASE,URINE NEGATIVE (NEGATIVE); NITRITE,URINE NEGATIVE (NEGATIVE); PROTEIN,URINE NEGATIVE (NEGATIVE); URINE SPECIFIC GRAVITY 1.016; UROBILINOGEN,URINE NEGATIVE mg/dL (<2.0)
--- NOTE | 2018-11-24 15:09 | RADIOLOGY REPORT (SQ) ---
EXAM DESCRIPTION: NM LUNG VENT/PERF SCAN COMPLETED DATE/TIME: 11/24/2018 1:07 pm REASON FOR STUDY: ? Chronic thromboembolic pulmonary hypertension COMPARISON: CT of the chest from 11/23/2018. RADIONUCLIDE AND DOSE: 5.46 millicuries TC-99m MAA Intravenous 28 millicuries TC-99m DTPA Inhaled aerosol TECHNIQUE: Eight views of the lungs acquired post ventilation of DTPA aerosol. Eight matching views of the lungs acquired following injection of MAA. LIMITATIONS: None. FINDINGS: Anterior and posterior ventilation images were obtained, however the examination had to be discontinued due to concern for contamination of the equipment and staff as the patient was unable t o tolerate the nose clamp or maintain proper seal. IMPRESSION: Nondiagnostic anterior and posterior ventilation images. COMMENT: The examination was discontinued prematurely for reasons stated above. TECHNICAL DOCUMENTATION: JOB ID: [id number] [employer]- All Rights Reserved Reading location - IP/workstation name: [email or web address]
[2018-11-24] MEDS: CEFTRIAXONE 1 GM/D5W RTU 1 GM/50 ML RTUPB IV SCH (18:29)
--- NOTE | 2018-11-24 18:36 | PDOC PROGRESS REPORT ---
Subjective Progress Note for:: 11/24/18 Subjective:: Patient seen by the bedside, he has E. coli septicemia Reason For Visit: HYPOXEMIA,ELEVATED D-DIMER,? PE Physical Exam Vital Signs: Temp Pulse Resp BP Pulse Ox 98.8 F 79 18 169/107 H 97 11/24/18 15:39 11/24/18 15:39 11/24/18 15:39 11/24/18 15:39 11/24/18 15:39 Intake & Output 11/23/18 11/24/18 11/25/18 06:59 06:59 06:59 Intake Total 4050 890 360 Output Total 1525 1225 Balance 2525 -335 360 Weight 99.1 kg 98 kg General appearance: PRESENT: no acute distress Head exam: PRESENT: atraumatic, normocephalic Eye exam: PRESENT: PERRLA Neck exam: PRESENT: full ROM Respiratory exam: PRESENT: clear to auscultation hammad Cardiovascular exam: PRESENT: RRR, +S1, +S2 Pulses: PRESENT: normal dorsalis pedis pul, +2 pedal pulses bilateral Vascular exam: PRESENT: normal capillary refill GI/Abdominal exam: PRESENT: normal bowel sounds, soft Rectal exam: PRESENT: deferred Neurological exam: PRESENT: alert Psychiatric exam: PRESENT: appropriate affect, normal mood Skin exam: PRESENT: dry, intact, warm. ABSENT: cyanosis, rash Results Laboratory Results: 11/24/18 06:47 11/24/18 06:47 11/24/18 11/24/18 11/24/18 06:47 06:47 08:55 WBC 12.2 H RBC 4.87 Hgb 15.3 Hct 44.0 MCV 91 MCH 31.5 MCHC 34.8 RDW 12.8 Plt Count 127 L Seg Neutrophils % 77.8 Sodium 137.7 Potassium 4.1 Chloride 108 H Carbon Dioxide 21 L Anion Gap 9 BUN 15 Creatinine 1.01 Est GFR ( Amer) > 60 Glucose 139 H Calcium 8.6 Magnesium 1.9 Total Bilirubin 0.9 AST 56 Alkaline Phosphatase 72 Total Protein 6.0 L Albumin 3.5 Urine Color YELLOW Urine Appearance CLEAR Urine pH 7.0 Ur Specific [place] 1.016 Urine Protein NEGATIVE Urine Glucose (UA) NEGATIVE Urine Ketones NEGATIVE Urine Blood NEGATIVE Urine Nitrite NEGATIVE Ur Leukocyte Esterase NEGATIVE Urine WBC (Auto) 1 Urine RBC (Auto) 1 11/22/18 06:55 Blood Blood Culture - Final Escherichia Coli 11/22/18 08:18 Clean Catch Midstream Urine Culture - Final 5,000 col/ml 11/23/18 11/23/18 11/23/18 00:38 00:38 00:38 Creatine Kinase 85 CK-MB (CK-2) 2.80 Troponin I 0.014 NT-Pro-B Natriuret Pep 520 11/23/18 11/23/18 11/23/18 07:18 07:18 12:26 Creatine Kinase 323 H 286 H CK-MB (CK-2) 2.46 Troponin I 0.014 NT-Pro-B Natriuret Pep 11/23/18 12:26 Creatine Kinase CK-MB (CK-2) 2.21 Troponin I 0.016 NT-Pro-B Natriuret Pep Impressions: Chest X-Ray 11/22/18 06:57 IMPRESSION: No evidence of acute intrathoracic disease. Abdomen/Pelvis CT 11/22/18 09:36 IMPRESSION: 1. Airspace disease in the right lower lobe. Pneumonia versus a telectasis. 2. Hepatic steatosis. 3. Large hydrocele. 4. Cholelithiasis. Chest/Abdomen CTA 11/23/18 10:00 IMPRESSION: 1. No pulmonary emboli. 2. Bibasilar atelectasis and pleural thickening. Bandlike atelectasis in the superior segment of the right lower lobe. Lung Scan-VQ NM 11/24/18 00:00 IMPRESSION: Nondiagnostic anterior and posterior ventilation images. Assessment & Plan - Diagnosis (1) Escherichia coli septicemia Is this a current diagnosis for this admission?: Yes Plan: He has E. coli cultured from the blood, the source of the E. coli is not clear, the bacteria is sensitive to ceftriaxone, patient already on the antibiotic (2) Hypoxemia Is this a current diagnosis for this admission?: Yes Plan: The VQ scan was a poor study, 2D echo to be ordered to assess for pulmonary hypertension (3) Systemic lupus erythematosus Qualifiers: Systemic lupus erythematosus type: unspecified Systemic lupus erythematosus organ involvement: unspecified Qualified Code(s): M32.9 - Systemic lupus erythematosus, unspecified Is this a current diagnosis for this admission?: Yes (4) Hydrocele Qualifiers: Hydrocele type: unspecified Qualified Code(s): N43.3 - Hydrocele, unspecified Is this a current diagnosis for this admission?: Yes
[2018-11-25 05:37] LABS: HEMATOCRIT 44.1 % (37.9-51.0); HEMOGLOBIN 15.4 g/dL (13.5-17.0); MEAN CORPUSCULAR HEMOGLOBIN 31.4 pg (27.0-33.4); MEAN CORPUSCULAR HGB CONC 34.9 g/dL (32.0-36.0); MEAN CORPUSCULAR VOLUME 90 fl (80-97); PLATELET COUNT 163 10^3/uL (150-450); RED BLOOD COUNT 4.91 10^6/uL (4.35-5.55); RED CELL DISTRIBUTION WIDTH 12.8 % (11.5-14.0); WHITE BLOOD COUNT 10.9 10^3/uL (4.0-10.5)
[2018-11-25 06:06] LABS: ALBUMIN 3.6 g/dL (3.5-5.0); ALKALINE PHOSPHATASE 99 U/L (38-126); ANION GAP 10 (5-19); ASPARTATE AMINO TRANSFERASE 54 U/L (17-59); BILIRUBIN,DIRECT 0.1 mg/dL (0.0-0.4); BILIRUBIN,TOTAL 0.6 mg/dL (0.2-1.3); BLOOD UREA NITROGEN 13 mg/dL (7-20); CALCIUM 8.7 mg/dL (8.4-10.2); CARBON DIOXIDE 19 mmol/L (22-30); CHLORIDE 109 mmol/L (98-107); GLUCOSE 136 mg/dL (75-110); POTASSIUM 4.2 mmol/L (3.6-5.0)
[2018-11-25 06:09] LABS: ABSOLUTE LYMPHOCYTES# (MANUAL) 1.5 10^3/uL (0.5-4.7); ABSOLUTE MONOCYTES # (MANUAL) 1.4 10^3/uL (0.1-1.4); BASOPHILS % (MANUAL) 0 % (0-2); EOSINOPHILS % (MANUAL) 3 % (0-6); LYMPHOCYTES % (MANUAL) 13 % (13-45); MONOCYTES % (MANUAL) 13 % (3-13); PLATELET COMMENT ADEQUATE; RBC MORPHOLOGY COMMENT NORMO-CYTIC/CHROMIC; SEGMENTED NEUTROPHILS % (MAN) 70 % (42-78); TOTAL CELLS COUNTED 100; TOXIC GRANULATION SLIGHT; TOXIC VACUOLATION PRESENT
[2018-11-25] MEDS: INSULIN LISPRO 100 UNIT/ML 3 ML VIAL SUBCUT SCH ×4 (08:07→21:17)
[2018-11-25] MEDS: CEFTRIAXONE 1 GM/D5W RTU 1 GM/50 ML RTUPB IV SCH (18:06)
--- NOTE | 2018-11-25 22:20 | PDOC PROGRESS REPORT ---
Subjective Progress Note for:: 11/25/18 Subjective:: Patient seen by the bedside, he has E. coli septicemia on IV antibiotic Reason For Visit: HYPOXEMIA,ELEVATED D-DIMER,? PE Physical Exam Vital Signs: Temp Pulse Resp BP Pulse Ox 98.3 F 76 20 158/98 H 98 11/25/18 20:16 11/25/18 20:16 11/25/18 20:16 11/25/18 20:16 11/25/18 20:16 Intake & Output 11/24/18 11/25/18 11/26/18 06:59 06:59 06:59 Intake Total 890 720 780 Output Total 1222 5367 9600 Balance -202 -861 -984 Weight 98 kg 98 kg General appearance: PRESENT: no acute distress Eye exam: PRESENT: PERRLA Respiratory exam: PRESENT: clear to auscultation hammad Cardiovascular exam: PRESENT: +S1, +S2 GI/Abdominal exam: PRESENT: soft Neurological exam: PRESENT: alert Results Laboratory Results: 11/25/18 05:14 11/25/18 05:14 11/25/18 11/25/18 05:14 05:14 WBC 10.9 H RBC 4.91 Hgb 15.4 Hct 44.1 MCV 90 MCH 31.4 MCHC 34.9 RDW 12.8 Plt Count 163 Seg Neutrophils % Not Reportable Sodium 138.1 Potassium 4.2 Chloride 109 H Carbon Dioxide 19 L Anion Gap 10 BUN 13 Creatinine 1.02 Est GFR ( Amer) > 60 Glucose 136 H Calcium 8.7 Magnesium 1.9 Total Bilirubin 0.6 AST 54 Alkaline Phosphatase 99 Total Protein 6.0 L Albumin 3.6 11/23/18 11/23/18 11/23/18 00:38 00:38 00:38 Creatine Kinase 85 CK-MB (CK-2) 2.80 Troponin I 0.014 NT-Pro-B Natriuret Pep 520 11/23/18 11/23/18 11/23/18 07:18 07:18 12:26 Creatine Kinase 323 H 286 H CK-MB (CK-2) 2.46 Troponin I 0.014 NT-Pro-B Natriuret Pep 11/23/18 12:26 Creatine Kinase CK-MB (CK-2) 2.21 Troponin I 0.016 NT-Pro-B Natriuret Pep Impressions: Chest X-Ray 11/22/18 06:57 IMPRESSION: No evidence of acute intrathoracic disease. Abdomen/Pelvis CT 11/22/18 09:36 IMPRESSION: 1. Airspace disease in the right lower lobe. Pneumonia versus atelectasis. 2. Hepatic steatosis. 3. Large hydrocele. 4. Cholelithiasis. Chest/Abdomen CTA 11/23/18 10:00 IMPRESSION: 1. No pulmonary emboli. 2. Bibasilar atelectasis and pleural thickening. Bandlike atelectasis in the superior segment of the right lower lobe. Lung Scan-VQ NM 11/24/18 00:00 IMPRESSION: Nondiagnostic anterior and posterior ventilation images. Assessment & Plan - Diagnosis (1) Escherichia coli septicemia Is this a current diagnosis for this admission?: Yes Plan: Continue IV antibiotic (2) Hypoxemia Is this a current diagnosis for this admission?: Yes (3) Systemic lupus erythematosus Qualifiers: Systemic lupus erythematosus type: unspecified Systemic lupus erythematosus organ involvement: unspecified Qualified Code(s): M32.9 - Systemic lupus keo thematosus, unspecified Is this a current diagnosis for this admission?: Yes (4) Hydrocele Qualifiers: Hydrocele type: unspecified Qualified Code(s): N43.3 - Hydrocele, unspecified Is this a current diagnosis for this admission?: Yes
[2018-11-26] MEDS: INSULIN LISPRO 100 UNIT/ML 3 ML VIAL SUBCUT SCH ×4 (08:32→21:29)
[2018-11-26] MEDS: NORMAL SALINE 1000 ML 1,000 ML IV PRN (10:05)
[2018-11-26] MEDS: CEFTRIAXONE 1 GM/D5W RTU 1 GM/50 ML RTUPB IV SCH (17:58)
--- NOTE | 2018-11-26 22:27 | PDOC PROGRESS REPORT ---
Subjective Progress Note for:: 11/26/18 Subjective:: Patient seen by the bedside, he has E. coli septicemia, he continues to receive IV antibiotic, hopefully discharge home on Thursday Reason For Visit: HYPOXEMIA,ELEVATED D-DIMER,? PE Physical Exam Vital Signs: Temp Pulse Resp BP Pulse Ox 98.5 F 74 16 171/89 H 98 11/26/18 20:21 11/26/18 20:21 11/26/18 20:21 11/26/18 20:21 11/26/18 14:53 Intake & Output 11/25/18 11/26/18 11/27/18 06:59 06:59 06:59 Intake Total 549 325 9231 Output Total 1275 2550 1400 Balance -555 1770 -390 Weight 98 kg 97.5 kg General appearance: PRESENT: no acute distress, well-developed, well-nourished Head exam: PRESENT: atraumatic, normocephalic Eye exam: PRESENT: conjunctiva pink, EOMI, PERRLA Ear exam: PRESENT: normal external ear exam Mouth exam: PRESENT: moist, tongue midline Neck exam: PRESENT: full ROM Respiratory exam: PRESENT: clear to auscultation hammad Cardiovascular exam: PRESENT: RRR, +S1, +S2 Vascular exam: PRESENT: normal capillary refill GI/Abdominal exam: PRESENT: normal bowel sounds, soft Rectal exam: PRESENT: deferred Neurological exam: PRESENT: alert, awake, oriented to person, oriented to place, oriented to time, oriented to situation, CN II-XII grossly intact Psychiatric exam: PRESENT: appropriate affect, normal mood Skin exam: PRESENT: dry, intact, warm. ABSENT: cyanosis, rash Results Laboratory Results: 11/25/18 05:14 11/25/18 05:14 11/26/18 07:15 Urine Color Cancelled Urine Appearance Cancelled Urine pH Cancelled Ur Specific [place] Cancelled Urine Protein Cancelled Urine Glucose (UA) Cancelled Urine Ketones Cancelled Urine Blood Cancelled Urine Nitrite Cancelled Ur Leukocyte Esterase Cancelled Urine WBC (Auto) Cancelled Urine RBC (Auto) Cancelled 11/23/18 11/23/18 11/23/18 00:38 00:38 00:38 Creatine Kinase 85 CK-MB (CK-2) 2.80 Troponin I 0.014 NT-Pro-B Natriuret Pep 520 0911/23/18 11/23/18 07:18 07:18 12:26 Creatine Kinase 323 H 286 H CK-MB (CK-2) 2.46 Troponin I 0.014 NT-Pro-B Natriuret Pep 11/23/18 12:26 Creatine Kinase CK-MB (CK-2) 2.21 Troponin I 0.016 NT-Pro-B Natriuret Pep Impressions: Chest X-Ray 11/22/18 06:57 IMPRESSION: No evidence of acute intrathoracic disease. Abdomen/Pelvis CT 11/22/18 09:36 IMPRESSION: 1. Airspace disease in the right lower lobe. Pneumonia versus atelectasis. 2. Hepatic steatosis. 3. Large hydrocele. 4. Cholelithiasis. Chest/Abdomen CTA 11/23/18 10:00 IMPRESSION: 1. No pulmonary emboli. 2. Bibasilar atelectasis and pleural thickening. Bandlike atelectasis in the superior segment of the right lower lobe. Lung Scan-VQ NM 11/24/18 00:00 IMPRESSION: Nondiagnostic anterior and posterior ventilation images. Assessment & Plan - Diagnosis (1) Escherichia coli septicemia Is this a current diagnosis for this admission?: Yes Plan: Continue IV antibiotic (2) Hypoxemia Is this a current diagnosis for this admission?: Yes (3) Systemic lupus erythematosus Qualifiers: Systemic lupus erythematosus type: unspecified Systemic lupus erythematosus organ involvement: unspecified Qualified Code(s): M32.9 - Systemic lupus erythematosus, unspecified Is this a current diagnosis for this admission?: Yes (4) Hydrocele Qualifiers: Hydrocele type: unspecified Qualified Code(s): N43.3 - Hydrocele, unspecified Is this a current diagnosis for this admission?: Yes
[2018-11-27] MEDS: NORMAL SALINE 1000 ML 1,000 ML IV PRN (02:14)
[2018-11-27] MEDS: INSULIN LISPRO 100 UNIT/ML 3 ML VIAL SUBCUT SCH ×4 (07:55→21:53)
[2018-11-27] MEDS ORDERED: ONDANSETRON HCL INJ/PF 4 MG/2 ML SDV ONE (16:15)
--- NOTE | 2018-11-27 16:22 | PDOC PROGRESS REPORT ---
Subjective Progress Note for:: 11/27/18 Subjective:: Patient seen by the bedside, he had episode of vomiting today Reason For Visit: HYPOXEMIA,ELEVATED D-DIMER,? PE Physical Exam Vital Signs: Temp Pulse Resp BP Pulse Ox 98.4 F 91 18 166/98 H 97 11/27/18 15:35 11/27/18 15:35 11/27/18 15:35 11/27/18 15:35 11/27/18 15:35 Intake & Output 11/26/18 11/27/18 11/28/18 06:59 06:59 06:59 Intake Total 780 2009 1679 Output Total 255 2725 450 Balance -1770 -715 1230 Weight 97.5 kg 86.4 kg General appearance: PRESENT: no acute distress Eye exam: PRESENT: PERRLA Respiratory exam: PRESENT: clear to auscultation hammad Cardiovascular exam: PRESENT: +S1, +S2 GI/Abdominal exam: PRESENT: soft Neurological exam: PRESENT: alert Results Laboratory Results: 11/25/18 05:14 11/25/18 05:14 11/22/18 08:35 Blood Blood Culture - Final NO GROWTH IN 5 DAYS 11/23/18 11/23/18 11/23/18 00:38 00:38 00:38 Creatine Kinase 85 CK-MB (CK-2) 2.80 Troponin I 0.014 NT-Pro-B Natriuret Pep 520 11/23/18 11/23/18 11/23/18 07:18 07:18 12:26 Creatine Kinase 323 H 286 H CK-MB (CK-2) 2.46 Troponin I 0.014 NT-Pro-B Natriuret Pep 11/23/18 12:26 Creatine Kinase CK-MB (CK-2) 2.21 Troponin I 0.016 NT-Pro-B Natriuret Pep Impressions: Chest X-Ray 11/22/18 06:57 IMPRESSION: No evidence of acute intrathoracic disease. Abdomen/Pelvis CT 11/22/18 09:36 IMPRESSION: 1. Airspace disease in the right lower lobe. Pneumonia versus atelectasis. 2. Hepatic steatosis. 3. Large hydrocele. 4. Cholelithiasis. Chest/Abdomen CTA 11/23/18 10:00 IMPRESSION: 1. No pulmonary emboli. 2. Bibasilar atelectasis and pleural thickening. Bandlike atelectasis in the superior segment of the right lower lobe. Lung Scan-VQ NM 11/24/18 00:00 IMPRESSION: Nondiagnostic anterior and posterior ventilation images. Assessment & Plan - Diagnosis (1) Escherichia coli septicemia Is this a current diagnosis for this admission?: Yes Plan: Continue IV antibiotic (2) Hypoxemia Is this a current diagnosis for this admission?: Yes (3) Systemic lupus erythematosus Qualifiers: Systemic lupus erythematosus type: unspecified Systemic lupus erythematosus organ involvement: unspecified Qualified Code(s): M32.9 - Systemic lupus erythematosus, unspecified Is this a current diagnosis for this admission?: Yes (4) Hydrocele Qualifiers: Hydrocele type: unspecified Qualified Code(s): N43.3 - Hydrocele, unspecified Is this a current diagnosis for this admission?: Yes
[2018-11-27] MEDS ORDERED: ONDANSETRON HCL INJ/PF 4 MG/2 ML SDV IV PRN (16:23)
[2018-11-27] MEDS: CEFTRIAXONE 1 GM/D5W RTU 1 GM/50 ML RTUPB IV SCH (17:08)
[2018-11-28] MEDS: INSULIN LISPRO 100 UNIT/ML 3 ML VIAL SUBCUT SCH ×4 (08:06→21:51)
[2018-11-28] MEDS ORDERED: LIDOCAINE 1% INJ (10 MG/ML) 10 ML MDV INJ ONE (12:26)
[2018-11-28] MEDS ORDERED: METHYLPREDNISOLONE ACETATE INJ 80 MG/1 ML VIAL IM ONE (12:26)
--- NOTE | 2018-11-28 12:39 | RADIOLOGY REPORT (SQ) ---
EXAM DESCRIPTION: SHOULDER LEFT 2 OR MORE VIEWS COMPLETED DATE/TIME: 11/28/2018 11:52 am REASON FOR STUDY: shoulder pain, decrease ROM COMPARISON: None. NUMBER OF VIEWS: Three views left shoulder. LIMITATIONS: None. FINDINGS: There is no acute or significant bone, joint or soft tissue abnormality. OTHER: No other significant finding. IMPRESSION: NORMAL STUDY. TECHNICAL DOCUMENTATION: JOB ID: [id number] Reading location - IP/workstation name: [email or web address]
[2018-11-28] MEDS ORDERED: ETHYL CHLORIDE SPRAY 103.5 ML/BOTTLE TP ONE (12:45)
--- NOTE | 2018-11-28 16:42 | PDOC PROGRESS REPORT ---
Subjective Reason For Visit: HYPOXEMIA,ELEVATED D-DIMER,? PE Physical Exam Vital Signs: Temp Pulse Resp BP Pulse Ox 97.9 F 100 16 153/97 H 97 11/28/18 12:26 11/28/18 12:26 11/28/18 04:42 11/28/18 12:26 11/28/18 12:26 Intake & Output 11/27/18 11/28/18 11/29/18 06:59 06:59 06:59 Intake Total 2009 2909 Output Total 272 1725 Balance -715 1185 Weight 86.4 kg 96.4 kg Results Laboratory Results: 11/25/18 05:14 11/25/18 05:14 11/23/18 11/23/18 11/23/18 00:38 00:38 00:38 Creatine Kinase 85 CK-MB (CK-2) 2.80 Troponin I 0.014 NT-Pro-B Natriuret Pep 520 11/23/18 11/23/18 11/23/18 07:18 07:18 12:26 Creatine Kinase 323 H 286 H CK-MB (CK-2) 2.46 Troponin I 0.014 NT-Pro-B Natriuret Pep 11/23/18 12:26 Creatine Kinase CK-MB (CK-2) 2.21 Troponin I 0.016 NT-Pro-B Natriuret Pep Impressions: Chest X-Ray 11/22/18 06:57 IMPRESSION: No evidence of acute intrathoracic disease. Abdomen/Pelvis CT 11/22/18 09:36 IMPRESSION: 1. Airspace disease in the right lower lobe. Pneumonia versus atelectasis. 2. Hepatic steatosis. 3. Large hydrocele. 4. Cholelithiasis. Chest/Abdomen CTA 11/23/18 10:00 IMPRESSION: 1. No pulmonary emboli. 2. Bibasilar atelectasis and pleural thickening. Bandlike atelectasis in the superior segment of the right lower lobe. Lung Scan-VQ NM 11/24/18 00:00 IMPRESSION: Nondiagnostic anterior and posterior ventilation images. Shoulder X-Ray 11/28/18 00:00 IMPRESSION: NORMAL STUDY. Assessment & Plan - Diagnosis (1) Escherichia coli septicemia Is this a current diagnosis for this admission?: Yes (2) Hypoxemia Is this a current diagnosis for this admission?: Yes (3) Systemic lupus erythematosus Qualifiers: Systemic lupus erythematosus type: unspecified Systemic lupus erythematosus organ involvement: unspecified Qualified Code(s): M32.9 - Systemic lupus erythematosus, unspecified Is this a current diagnosis for this admission?: Yes (4) Hydrocele Qualifiers: Hydrocele type: unspecified Qualified Code(s): N43.3 - Hydrocele, unspecified Is this a current diagnosis for this admission?: Yes Bedside Procedure - History of Present Illness Indication for Procedure: Left shoulder pain Date: 11/28/18 Surgeon: CATRACHO RAMOS - Joint Aspiration Left Shoulder Consent obtained: Yes Joint aspiration pre-procedure: Chloraprep applied Anesthetic type: 1% Lidocaine mL's of anesthetic: 5 Needle size: 18 Amount/type of drainage: The left shoulder joint was injected with Medrol Dosepak 80 mg +5 cc of lid Complications: No
--- NOTE | 2018-11-28 16:47 | PDOC PROGRESS REPORT ---
Subjective Progress Note for:: 11/28/18 Subjective:: Patient seen by the bedside, he complains of pain of the left shoulder, x-ray of the shoulder was obtained there was no fracture, it could not lift, elevate the shoulder suggesting AC joint arthritis Reason For Visit: HYPOXEMIA,ELEVATED D-DIMER,? PE Physical Exam Vital Signs: Temp Pulse Resp BP Pulse Ox 97.9 F 100 16 153/97 H 97 11/28/18 12:26 11/28/18 12:26 11/28/18 04:42 11/28/18 12:26 11/28/18 12:26 Intake & Output 11/27/18 11/28/18 11/29/18 06:59 06:59 06:59 Intake Total 2009 2909 Output Total 2724 1725 Balance -715 1185 Weight 86.4 kg 96.4 kg General appearance: PRESENT: no acute distress, well-developed, well-nourished Head exam: PRESENT: atraumatic, normocephalic Eye exam: PRESENT: conjunctiva pink, EOMI, PERRLA Ear exam: PRESENT: normal external ear exam Mouth exam: PRESENT: moist, tongue midline Neck exam: PRESENT: full ROM Respiratory exam: PRESENT: clear to auscultation hammad Cardiovascular exam: PRESENT: RRR, +S1, +S2 Vascular exam: PRESENT: normal capillary refill GI/Abdominal exam: PRESENT: normal bowel sounds, soft Rectal exam: PRESENT: deferred Neurological exam: PRESENT: alert, awake, oriented to person, oriented to place, oriented to time, oriented to situation, CN II-XII grossly intact Psychiatric exam: PRESENT: appropriate affect, normal mood Skin exam: PRESENT: dry, intact, warm Results Laboratory Results: 11/25/18 05:14 11/25/18 05:14 11/23/18 11/23/18 11/23/18 00:38 00:38 00:38 Creatine Kinase 85 CK-MB (CK-2) 2.80 Troponin I 0.014 NT-Pro-B Natriuret Pep 520 11/23/18 11/23/18 11/23/18 07:18 07:18 12:26 Creatine Kinase 323 H 286 H CK-MB (CK-2) 2.46 Troponin I 0.014 NT-Pro-B Natriuret Pep 11/23/18 12:26 Creatine Kinase CK-MB (CK-2) 2.21 Troponin I 0.016 NT-Pro-B Natriuret Pep Impressions: Chest X-Ray 11/22/18 06:57 IMPRESSION: No evidence of acute intrathoracic disease. Abdomen/Pelvis CT 11/22/18 09:36 IMPRESSION: 1. Airspace disease in the right lower lobe. Pneumonia versus atelectasis. 2. Hepatic steatosis. 3. Large hydrocele. 4. Cholelithiasis. Chest/Abdomen CTA 11/23/18 10:00 IMPRESSION: 1. No pulmonary emboli. 2. Bibasilar atelectasis and pleural thickening. Bandlike atelectasis in the superior segment of the right lower lobe. Lung Scan-VQ NM 11/24/18 00:00 IMPRESSION: Nondiagnostic anterior and posterior ventilation images. Shoulder X-Ray 11/28/18 00:00 IMPRESSION: NORMAL STUDY. Assessment & Plan - Diagnosis (1) Escherichia coli septicemia Is this a current diagnosis for this admission?: Yes (2) Hypoxemia Is this a current diagnosis for this admission?: Yes (3) Systemic lupus erythematosus Qualifiers: Systemic lupus erythematosus type: unspecified Systemic lupus erythematosus organ involvement: unspecified Qualified Code(s): M32.9 - Systemic lupus erythematosus, unspecified Is this a current diagnosis for this admission?: Yes (4) Hydrocele Qualifiers: Hydrocele type: unspecified Qualified Code(s): N43.3 - Hydrocele, unspecified Is this a current diagnosis for this admission?: Yes (5) Pain in left shoulder Qualifiers: Chronicity: acute Qualified Code(s): M25.512 - Pain in left shoulder Is this a current diagnosis for this admission?: Yes Plan: Was given Medrol dose pack,
[2018-11-28] MEDS: CEFTRIAXONE 1 GM/D5W RTU 1 GM/50 ML RTUPB IV SCH (17:31)
--- NOTE | 2018-11-28 18:40 | XCELERA REPORT ---
[address] [address] Transthoracic Echocardiogram Report Name: EMANUEL HOLLAND Age: 58 yrs Gender: Male : 1960 Patient Status: Inpatient Patient Location: [address] [place] [address] Study Date: 11/25/2018 09:56 AM Height: 69 in Weight: 216 lb BSA: 2.1 m2 Procedure: A two-dimensional transthoracic echocardiogram with color flow and Doppler was performed. The study was technically limited with all images being suboptimal in quality. Reason For Study: HYPERTENSION History: HYPERTENSION. Ordering Physician: CATRACHO RAMOS Performed By: Veronica Linares Interpretation Summary The left ventricle is normal in size. There is normal left ventricular wall thickness. LV EF is 65% The left ventricular ejection fraction is within normal limits. Doppler measurements suggest impaired left ventricular relaxation, which is associated with grade I/IV or mild diastolic dysfunction The left ventricular wall motion is normal. There is no thrombus. Cannot assess ASD ,VSD , or PFO. The right ventricle is normal in size and function. The right atrium is normal. The left atrial size is normal. There is no evidence of mitral valve prolapse. There is no vegetation seen on the mitral valve. There is no mitral valve stenosis. There is no aortic valvular vegetation. There is aortic sclerosis without aortic stenosis. There is no LVOT obstruction. There is no tricuspid stenosis. No tricuspid regurgitation. Unable to calculate RVSP due to lack of TR jet. There is no pulmonic valvular stenosis. There is no pulmonic valvular regurgitation. The inferior vena cava was not visualized There is no pericardial effusion. MMode/2D Measurements & Calculations RVDd: 3.3 cm LVIDd: 4.7 cm FS: 45.1 % Ao root diam: 3.0 cm IVSd: 0.82 cm LVIDs: 2.6 cm EDV(Teich): LVPWd: 0.91 cm 104.6 ml Ao root area: ESV(Teich): 24.8 ml7.2 cm2 EF(Teich): 76.3 % EDV(MOD-sp4): SV(MOD-sp4): 90.2 ml 50.4 ml ESV(MOD-sp4): 39.8 ml EF(MOD-sp4): 55.8 % Doppler Measurements & Calculations MV E max isaura: MV dec slope: Ao V2 max: LV V1 max P.9 cm/sec 165.1 cm/sec 6.9 mmHg MV A max isaura: 444.7 cm/sec2 Ao max PG: LV V1 max: 88.9 cm/sec MV dec time: 0.18 sec10.9 mmHg 131.5 cm/sec MV E/A: 0.90 PA V2 max: 130.7 cm/sec PA max P.8 mmHg Left Ventricle The left ventricle is normal in size. There is normal left ventricular wall thickness. LV EF is 65%. The left ventricular ejection fraction is within normal limits. Doppler measurements suggest impaired left ventricular relaxation, which is associated with grade I/IV or mild diastolic dysfunction. The left ventricular wall motion is normal. There is no thrombus. Cannot assess ASD ,VSD , or PFO. Right Ventricle The right ventricle is normal in size and function. Atria The right atrium is normal. The left atrial size is normal. Mitral Valve There is no evidence of mitral valve prolapse. There is no vegetation seen on the mitral valve. There is no mitral valve stenosis. There is a trace amount of mitral regurgitation. Aortic Valve There is no aortic valvular vegetation. There is aortic sclerosis without aortic stenosis. There is no LVOT obstruction. No aortic regurgitation is present. Tricuspid Valve There is no tricuspid stenosis. No tricuspid regurgitation. Unable to calculate RVSP due to lack of TR jet. Pulmonic Valve There is no pulmonic valvular stenosis. There is no pulmonic valvular regurgitation. Great Vessels The aortic root is normal size. The inferior vena cava was not visualized. Effusions There is no pericardial effusion. : CATRACHO RAMOS Lakshmi
[2018-11-29] MEDS: INSULIN LISPRO 100 UNIT/ML 3 ML VIAL SUBCUT SCH ×2 (08:01→12:36)
[2018-11-29 12:55] VITALS: BP 130/84
--- NOTE | 2018-11-29 17:22 | PDOC DISCHARGE SUMMARY ---
General - Admit/Disc Date/PCP Admission Date/Primary Care Provider: 11/22/18 17:44 CATRACHO RAMOS MD Discharge Date: 11/29/18 - Discharge Diagnosis (1) Escherichia coli septicemia Is this a current diagnosis for this admission?: Yes (2) Hypoxemia Is this a current diagnosis for this admission?: Yes (3) Systemic lupus erythematosus Is this a current diagnosis for this admission?: Yes (4) Hydrocele Is this a current diagnosis for this admission?: Yes (5) Pain in left shoulder Is this a current diagnosis for this admission?: Yes - Additional Information Discharge Diet: As Tolerated Discharge Activity: Activity As Tolerated, Balance Activity w/Rest Home Medications: Hydroxychloroquine Sulfate [Plaquenil 200 mg Tablet] 200 mg PO BID 11/22/18 Lisinopril/Hydrochlorothiazide [Zestoretic 20-12.5 mg Tablet] 1 tab PO DAILY 11/22/18 Metformin HCl [Glucophage 500 mg Tablet] 500 mg PO DAILY 11/22/18 History of Present Illness History of Present Illness: EMANUEL HOLLNAD is a 58 year old male, 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 In the emergency room he was evaluated, there was concern for sepsis in the emergency room a CAT scan of the abdomen and pelvis with IV contrast was obtained it demonstrated a diffusely hypoattenuating liver, there is no mass lesion the pancreas there was no masses there was no adjacent inflammation or peripancreatic fluid collection. There was a small gallstone in the gallbladder the adrenal gland was normal, There was also incidental finding of a large hydrocele.The initial blood culture demonstrated gram-negative vanessa suggesting gram-negative septicemia.The source of the gram negative vanessa is not apparent at this time ,the urinalysis, the urine dipstick was negative. The arterial blood gas that was done on FiO2 2 L, pH 7.43 PCO2 33.4 bicarbonate 19.5 Because of the hypoxemia I requested for CT angiography of the chest to be obtained but this could not be done because he also recently had a CT scan of abdomen and pelvis with IV contrast, the policy of the x-ray department is that patient has to wait [address] angiography of the chest could be obtained.I am more particularly concerned because of the elevated d-dimer.I was about to initiate empirically anticoagulation with IV heparin but the stool was positive for blood , the Benefit- risk ratio was small ,it was too high of a risk, to initiate anticoagulation empirically in the patient with suspected PE that also have a positive blood in the stool, I felt it is better to confirm pulmonary embolism with a CT angiogram of the chest before initiating anticoagulation.He has a history of systemic lupus erythematosus, type 2 diabetes mellitus Hospital Course Hospital Course: He has E. coli septicemia, he was treated with IV ceftriaxone, the source of the E. coli is not clear. Hospital course was complicated with left shoulder pain, yesterday he was given subacromial glucocorticoid with relief of his symptoms. 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 especially in this patient with SLE, shortness of breath, and a negative CTA chestIn the setting of unexplained hypoxemia A VQ scan is necessary to diagnose CTEPH, ia VQ scan was obtained but it was a poor study it was discarded ,2D echo was done with the intent to measure pulmonary pressures but the pulmonary pressure could not be measured because of the fact that the TR jet was poorly visualized, subsequently patient remained stable Physical Exam Vital Signs: Temp Pulse Resp BP Pulse Ox 98.0 F 86 16 130/84 H 96 11/29/18 12:53 11/29/18 12:53 11/29/18 12:53 11/29/18 12:53 11/29/18 12:53 Intake & Output 11/28/18 11/29/18 11/30/18 06:59 06:59 06:59 Intake Total 2910 50 Output Total 1725 1175 Balance 1185 -1125 Weight 96.4 kg General appearance: PRESENT: no acute distress Head exam: PRESENT: atraumatic, normocephalic Eye exam: PRESENT: conjunctiva pink, EOMI, PERRLA Ear exam: PRESENT: normal external ear exam Mouth exam: PRESENT: moist, tongue midline Neck exam: PRESENT: full ROM Respiratory exam: PRESENT: clear to auscultation hammad Cardiovascular exam: PRESENT: RRR, +S1, +S2 Pulses: PRESENT: normal dorsalis pedis pul, +2 pedal pulses bilateral Vascular exam: PRESENT: normal capillary refill GI/Abdominal exam: PRESENT: normal bowel sounds, soft Rectal exam: PRESENT: deferred Neurological exam: PRESENT: alert, awake, oriented to person, oriented to place, oriented to time, oriented to situation, CN II-XII grossly intact Psychiatric exam: PRESENT: appropriate affect, normal mood Skin exam: PRESENT: dry, intact, warm Results Laboratory Results: 11/25/18 05:14 11/25/18 05:14 11/23/18 11/23/18 11/23/18 00:38 00:38 00:38 Creatine Kinase 85 CK-MB (CK-2) 2.80 Troponin I 0.014 NT-Pro-B Natriuret Pep 520 11/23/18 11/23/18 11/23/18 07:18 07:18 12:26 Creatine Kinase 323 H 286 H CK-MB (CK-2) 2.46 Troponin I 0.014 NT-Pro-B Natriuret Pep 11/23/18 12:26 Creatine Kinase CK-MB (CK-2) 2.21 Troponin I 0.016 NT-Pro-B Natriuret Pep Impressions: Chest X-Ray 11/22/18 06:57 IMPRESSION: No evidence of acute intrathoracic disease. Abdomen/Pelvis CT 11/22/18 09:36 IMPRESSION: 1. Airspace disease in the right lower lobe. Pneumonia versus atelectasis. 2. Hepatic steatosis. 3. Large hydrocele. 4. Cholelithiasis. Chest/Abdomen CTA 11/23/18 10:00 IMPRESSION: 1. No pulmonary emboli. 2. Bibasilar atelectasis and pleural thickening. Bandlike atelectasis in the superior segment of the right lower lobe. Lung Scan-VQ NM 11/24/18 00:00 IMPRESSION: Nondiagnostic anterior and posterior ventilation images. Shoulder X-Ray 11/28/18 00:00 IMPRESSION: NORMAL STUDY. Qualifiers - * PATIENT BEING DISCHARGED WITH ANY OF THE FOLLOWING DIAGNOSIS: No VTE patient discharged on overlapping Therapy?: No Stroke Pt being discharged on Anti-thrombolytic therapy?: No Reason(s) for not prescribing Anti-thrombolytic therapy:: Not indicated Stroke Pt being discharged on Anti-coagulation therapy?: No Reason(s) for not prescribing Anti-coagulation therapy:: Not indicated Stroke Pt being discharged on Statins?: No Reason(s) for not prescribing Statins therapy:: Not indicated VT Pt being discharged on Aspirin therapy?: No Reason(s) for not prescribing Aspirin therapy:: Not indicated VT Pt being discharged on Statins?: No Reason(s) for not prescribing Statin therapy:: Not indicated VT Pt discharged ACEI/ARBS?: No Reason(s) for not prescribing ACEI/ARBS:: Not indicated Acute Heart Failure - Is this a Heart Failure Patient?: No Documentation of LVEF assessment?: No, Document reason Follow-up Appointment scheduled within 7 days?: Yes
== END 2018-11-29 13:53 | disposition home or self-care (01) | DRG 872 ==
LOC: ER 06:22 → EH 17:44 → 3S 21:35
PROVIDERS: ADMIT Internal Medicine; ATTEND Internal Medicine
DX: A41.51 Sepsis due to Escherichia coli [E. coli] (principal); M32.9 Systemic lupus erythematosus, unspecified; N43.3 Hydrocele, unspecified; R09.02 Hypoxemia; M25.512 Pain in left shoulder; E11.9 Type 2 diabetes mellitus without complications; K80.20 Calculus of gallbladder without cholecystitis without obstruction; K76.0 Fatty (change of) liver, not elsewhere classified; I10 Essential (primary) hypertension; Z79.899 Other long term (current) drug therapy; Z79.84 Long term (current) use of oral hypoglycemic drugs; Z82.49 Family history of ischemic heart disease and other diseases of the circulatory system
CPT/HCPCS: 36415; 36600; 71045; 71275; 74177; 78582; 80048; 80053; 80061; 80076; 80307; 81001; 82140; 82150; 82272; 82550; 82553; 82803; 82962; 83036; 83605; 83690; 83735; 83880; 84100; 84439; 84443; 84484; 85025; 85379; 85610; 85730; 87040; 87077; 87086; 87186; 87324; 87449; 93005; 93010; 93306; 96365; 96366; 96367; 96375; 99285; A9540; A9567; J0696; J1040; J1644; J1815; J2405; J2543; J3370; J3490; J7030; Q9969

== ENCOUNTER → 2019-01-01 | Outpatient (CLI) | payer BC ==
[2019-01-01 05:17] LABS: APPEARANCE,URINE CLEAR; BILIRUBIN,URINE NEGATIVE (NEGATIVE); COLOR,URINE YELLOW; GLUCOSE, URINE NEGATIVE (NEGATIVE); KETONES,URINE NEGATIVE (NEGATIVE); LEUKOCYTE ESTERASE,URINE NEGATIVE (NEGATIVE); NITRITE,URINE NEGATIVE (NEGATIVE); PROTEIN,URINE NEGATIVE (NEGATIVE); URINE SPECIFIC GRAVITY 1.018; UROBILINOGEN,URINE NEGATIVE mg/dL (<2.0)
[2019-01-01 05:21] LABS: ABSOLUTE BASOPHILS # (AUTO) 0.1 10^3/uL (0.0-0.2); ABSOLUTE EOSINOPHILS # (AUTO) 0.4 10^3/uL (0.0-0.6); ABSOLUTE LYMPHOCYTES (AUTO) 2.5 10^3/uL (0.5-4.7); ABSOLUTE MONOCYTES (AUTO) 0.7 10^3/uL (0.1-1.4); ABSOLUTE NEUT (AUTO) 4.1 10^3/uL (1.7-8.2); BASOPHILS % (AUTO) 1.2 % (0-2); EOSINOPHILS % (AUTO) 4.6 % (0-6); HEMATOCRIT 50.6 % (37.9-51.0); HEMOGLOBIN 17.4 g/dL (13.5-17.0); LYMPHOCYTES % (AUTO) 31.9 % (13-45); MEAN CORPUSCULAR HGB CONC 34.5 g/dL (32.0-36.0); MEAN CORPUSCULAR VOLUME 90 fl (80-97); MONOCYTES % (AUTO) 9.5 % (3-13); PLATELET COUNT 207 10^3/uL (150-450); RED BLOOD COUNT 5.61 10^6/uL (4.35-5.55); RED CELL DISTRIBUTION WIDTH 13.1 % (11.5-14.0); SEGMENTED NEUTROPHILS % (AUTO) 52.8 % (42-78); TOTAL CELLS COUNTED % (AUTO) 100 %; WHITE BLOOD COUNT 7.8 10^3/uL (4.0-10.5)
[2019-01-01 05:36] LABS: ALBUMIN 4.9 g/dL (3.5-5.0); ALKALINE PHOSPHATASE 60 U/L (38-126); ANION GAP 13 (5-19); ASPARTATE AMINO TRANSFERASE 36 U/L (17-59); BILIRUBIN,DIRECT 0.1 mg/dL (0.0-0.4); BLOOD UREA NITROGEN 18 mg/dL (7-20); CALCIUM 9.9 mg/dL (8.4-10.2); CARBON DIOXIDE 24 mmol/L (22-30); CHLORIDE 102 mmol/L (98-107); GLUCOSE 127 mg/dL (75-110); POTASSIUM 4.1 mmol/L (3.6-5.0); TOTAL PROTEIN 7.6 g/dL (6.3-8.2); URIC ACID 6.5 mg/dL (3.5-8.5)
[2019-01-01 05:52] LABS: FREE T4 (FREE THYROXINE) 0.89 ng/dL (0.78-2.19)
[2019-01-01 06:06] LABS: THYROID STIMULATING HORMONE 0.97 uIU/mL (0.47-4.68)
[2019-01-02 06:38] LABS: CREATININE URINE 145.4 mg/dL (Not Estab.); MICROALBUMIN URINE 9.2 ug/mL (Not Estab.)
== END ==
LOC: LAB 04:49
PROVIDERS: ATTEND Internal Medicine
DX: E11.9 Type 2 diabetes mellitus without complications (principal)
CPT/HCPCS: 36415; 80053; 81001; 82043; 82570; 83036; 84439; 84443; 84550; 85025

== ENCOUNTER 2019-09-11 11:55 | Emergency (ER) | payer BC ==
[2019-09-11 13:11] LABS: HEMATOCRIT 44.3 % (37.9-51.0); HEMOGLOBIN 15.7 g/dL (13.5-17.0); MEAN CORPUSCULAR HEMOGLOBIN 31.8 pg (27.0-33.4); MEAN CORPUSCULAR HGB CONC 35.4 g/dL (32.0-36.0); MEAN CORPUSCULAR VOLUME 90 fl (80-97); PLATELET COUNT 186 10^3/uL (150-450); RED BLOOD COUNT 4.93 10^6/uL (4.35-5.55); RED CELL DISTRIBUTION WIDTH 12.4 % (11.5-14.0); WHITE BLOOD COUNT 15.7 10^3/uL (4.0-10.5)
[2019-09-11 13:13] LABS: ALBUMIN 4.5 g/dL (3.5-5.0); ALKALINE PHOSPHATASE 122 U/L (38-126); ANION GAP 11 (5-19); ASPARTATE AMINO TRANSFERASE 46 U/L (17-59); BILIRUBIN,DIRECT 0.1 mg/dL (0.0-0.4); BILIRUBIN,TOTAL 1.9 mg/dL (0.2-1.3); BLOOD UREA NITROGEN 20 mg/dL (7-20); CALCIUM 9.6 mg/dL (8.4-10.2); CARBON DIOXIDE 21 mmol/L (22-30); CHLORIDE 97 mmol/L (98-107); CREATINE KINASE 213 U/L (55-170); POTASSIUM 4.4 mmol/L (3.6-5.0); TOTAL PROTEIN 7.1 g/dL (6.3-8.2)
[2019-09-11] MEDS ORDERED: NORMAL SALINE 500 ML IV ONE ×2 (13:15→13:24)
--- NOTE | 2019-09-11 13:16 | ER Document Report ---
ED General - General Chief Complaint: Chest Pain Stated Complaint: WEAKNESS/SOB/HEADACHE/NAUSEA Primary Care Provider: CATRACHO RAMOS MD [Primary Care Provider] - Follow up as needed Notes: CHIEF COMPLAINT: Multiple complaints HPI: Patient is a poor historian. History is also obtained from the patient chart. History of small bowel obstruction renal failure type 2 diabetes lupus pneumonia hypertension and anemia. Patient states he had some intermittent abdominal discomfort last week but none today. Some difficulty with urination. Patient complains of fever today. Denies vomiting. States he has had a cough over the last 1 to 2 weeks with some shortness of breath and occasional chest pain. Denies chest pain or shortness of breath to me at this time. ROS: See HPI - all other systems were reviewed and are otherwise negative Constitutional: no fever Eyes: no drainage, no blurred vision ENT: no runny nose, no sore throat Cardiovascular: + chest pain Resp: + SOB, + cough GI: no vomiting, no diarrhea, no abdominal pain : no dysuria Integumentary: no rash Allergy: no hives Musculoskeletal: no extremity pain or swelling Neurological: no numbness/tingling, no weakness MEDICATIONS: I agree with the patient medications as charted by the RN. ALLERGIES: I agree with the allergies as charted by the RN. PAST MEDICAL HISTORY/PAST SURGICAL HISTORY: Reviewed and agree as charted by RN. SOCIAL HISTORY: Reviewed and agree as charted by RN. FAMILY HISTORY: No significant familial comorbid conditions directly related to patient complaint EXAM: Reviewed vital signs as charted by RN. CONSTITUTIONAL: Alert and oriented and responds appropriately to questions but is very slow to answer and answers are not necessarily complete to the question. Well-appearing; well-nourished HEAD: Normocephalic; atraumatic EYES: PERRL; Conjunctivae clear, sclerae non-icteric ENT: normal nose; no rhinorrhea; moist mucous membranes; pharynx without lesions noted, no uvula edema or deviation, no tonsillar hypertrophy, phonation normal NECK: Supple without meningismus; non-tender; no cervical lymphadenopathy, no masses CARD: Tachycardic; no murmurs, no clicks, no rubs, no gallops; symmetric distal pulses RESP: Normal chest excursion without splinting or tachypnea; breath sounds clear and equal bilaterally; no wheezes, no rhonchi, no rales, pulse oximetry 95% on room air not hypoxic. Patient does appear mildly dyspneic with speaking ABD/GI: Obese, normal bowel sounds; non-distended; soft, non-tender, no rebound, no guarding; no palpable organomegaly or masses. BACK: The back appears normal and is non-tender to palpation, there is no CVA tenderness EXT: Normal ROM in all joints; non-tender to palpation; no cyanosis, no effusions, no edema SKIN: Normal color for age and race; warm; dry; good turgor; no acute lesions noted NEURO: Moves all extremities equally; Motor and sensory function intact PSYCH: The patient's mood and manner are appropriate. Grooming and personal hygiene are appropriate. MDM: 58-year-old male presenting with multiple complaints. Has had intermittent cough chest pain shortness of breath over the last 2 weeks. Patient reports some abdominal symptoms a week ago none today. Does have history of bowel obstruction and renal failure. Will obtain baseline screening labs including cardiac labs given the intermittent chest pain and shortness of breath will add TSH as he is tachycardic with a heart rate of 118. Patient does appear somewhat dyspneic on speaking. Poor lung volumes on auscultation. TRAVEL OUTSIDE OF THE [place] IN LAST 30 DAYS: No - Related Data Allergies/Adverse Reactions: No Known Allergies Allergy (Verified 09/11/19 12:02) Past Medical History - Social History Smoking Status: Never Smoker Family History: Hypertension Patient has homicidal ideation: No - Past Medical History Cardiac Medical History: Reports: Hx Hypertension, Hx Heart Murmur - as a child Denies: Hx Atrial Fibrillation, Hx Congestive Heart Failure, Hx Coronary Artery Disease, Hx Heart Attack, Hx Hypercholesterolemia, Hx Peripheral Vascular Disease Endocrine Medical History: Reports: Hx Diabetes Mellitus Type 2 Renal/ Medical History: Denies: Hx Peritoneal Dialysis Musculoskeletal Medical History: Reports Hx Arthritis, Denies Hx Fibromyalgia, Denies Hx Muscular Dystrophy Traumatic Medical History: Denies: Hx Fractures Past Surgical History: Reports: Hx Abdominal Surgery - colostomy, Hx Herniorrhaphy, Hx Orthopedic Surgery - Rt hip arthroplasty 09/2016. Denies: Hx Appendectomy, Hx Bowel Surgery, Hx Cholecystectomy, Hx Coronary Artery Bypass Graft, Hx Gastric Bypass Surgery, Hx Pacemaker, Hx Tonsillectomy Physical Exam - Vital signs Vitals: Pulse Ox 95 09/11/19 12:08 Course - Re-evaluation Re-evalutation: 09/11/19 15:10 Have requested an Accu-Chek from nursing. Patient exam shows a circumcised male with erythema extending across the scrotum penis and inguinal region most consistent with tinea. He states he has had burning and itching for several weeks. No direct erythema, tenderness or fluctuant areas in the perineum suggesting Fourniers Gangrene at this time. 09/11/19 15:45 Patient shows a mild leukocytosis but no acute findings in the abdomen or chest on CT imaging. His urine does not show evidence of infection. He does have tinea rash across the groin penis and scrotum. Question of mild secondary cellulitis with this perhaps to explain the leukocytosis. Patient was hyperglycemic here we have hydrated the patient given of insulin. He will continue on his medications at home. He has had no chest pain or shortness of breath here. States that his breathing does feel much better currently. Low suspicion for ACS at this time, he has had no chest discomfort for several days now to suggest STEMI. Initial screening cardiac labs were negative. Patient will be placed on Diflucan. Patient will be placed on Keflex for possible cellulitis although I still suspect a tinea rash and the leukocytosis is likely related to his hyperglycemia. Patient has no PE. Will consider using albuterol at home for the patient close follow-up with PCP return instructions. Urine did not show evidence of infection and patient has been answering all questions karon ropriately at time of discharge I did speak with the patient at length prior to discharge. 09/11/19 15:50 Patient heart rate on my last examination of the patient was 102 09/11/19 16:06 Patient does admit that he has not taking his metformin at home although he does of the medication there. - Vital Signs Vital signs: Temp Pulse Resp BP Pulse Ox 99.3 F 135 H 23 H 144/94 H 96 09/11/19 12:09 09/11/19 12:09 09/11/19 16:31 09/11/19 16:31 09/11/19 16:31 - Laboratory Result Diagrams: 09/11/19 12:08 09/11/19 12:08 Laboratory results interpreted by me: 09/11/19 09/11/19 09/11/19 12:08 12:08 14:07 WBC 15.7 H Seg Neuts % (Manual) 91 H Lymphocytes % (Manual) 5 L Abs Neuts (Manual) 14.3 H Sodium 128.6 L Chloride 97 L Carbon Dioxide 21 L Creatinine 1.27 H Est GFR (MDRD) Non-Af 58 L Glucose 440 H* POC Glucose Total Bilirubin 1.9 H ALT 89 H Creatine Kinase 213 H Urine Glucose (UA) >=500 H Urine Ketones 20 H 09/11/19 15:19 WBC Seg Neuts % (Manual) Lymphocytes % (Manual) Abs Neuts (Manual) Sodium Chloride Carbon Dioxide Creatinine Est GFR (MDRD) Non-Af Glucose POC Glucose 374 H Total Bilirubin ALT Creatine Kinase Urine Glucose (UA) Urine Ketones Discharge - Discharge Clinical Impression: Hyperglycemia, Tinea cruris Dyspnea Qualifiers: Dyspnea type: unspecified Qualified Code(s): R06.00 - Dyspnea, unspecified Condition: Stable Disposition: HOME, SELF-CARE Additional Instructions: Your imaging studies did not show acute findings today in either the chest or the abdomen. You need to take your diabetes medications at home, your blood sugar was significantly elevated today and this likely leads to some of the symptoms you are experiencing. The rash in the groin is likely fungal in natu re. This is related to your elevated blood sugars. Take the medications as prescribed to help treat this. Follow-up closely with your primary care provider for reevaluation of your symptoms within 2 to 3 days call for appointment. Use the albuterol inhaler to help with any shortness of breath, if you develop recurrent chest pain you should return to the emergency department for reevaluation. A COVID study has been sent on you today, you are to quarantine at home for the next 14 days or until you have a negative study result you will be contacted by the hospital with your result. Prescriptions: Fluconazole [Diflucan 100 Mg Tablet] 100 mg PO DAILY #5 tablet Cephalexin Monohydrate [Keflex 500 mg Capsule] 500 mg PO Q6H 7 Days #28 capsule Clotrimazole/Betamethasone Dip [Lotrisone Cream 15 gm] 1 applic TP BID #1 tube Albuterol Sulfate [Proair HFA Inhalation Aerosol 8.5 gm MDI] 2 puff IH Q4H PRN #1 mdi PRN Reason: Referrals: CATRACHO RAMOS MD [Primary Care Provider] - Follow up as needed
--- NOTE | 2019-09-11 13:18 | RADIOLOGY REPORT (SQ) ---
EXAM DESCRIPTION: CHEST SINGLE VIEW IMAGES COMPLETED DATE/TIME: 09/11/2019 12:01 pm REASON FOR STUDY: SOB COMPARISON: 08/19/2016 EXAM PARAMETERS: NUMBER OF VIEWS: One view. TECHNIQUE: Single frontal radiographic view of the chest acquired. RADIATION DOSE: NA LIMITATIONS: None. FINDINGS: LUNGS AND PLEURA: Atelectasis/scarring at the left lung base is stable from prior. No foc al consolidation or pleural effusion. Lungs are hyperinflated. No pneumothorax. MEDIASTINUM AND HILAR STRUCTURES: No masses. Contour normal. HEART AND VASCULAR STRUCTURES: Heart normal in size. Normal vasculature. BONES: No acute findings. HARDWARE: None in the chest. OTHER: No other significant finding. IMPRESSION: No acute cardiopulmonary disease. Hyperinflated lungs which can be seen with obstructiv e lung disease. TECHNICAL DOCUMENTATION: JOB ID: [id number] 2010 [employer]- All Rights Reserved Reading location - IP/workstation name: [email or web address]
[2019-09-11 13:20] LABS: CREATINE KINASE MB 4.51 ng/mL (<4.55); GLUCOSE 440 mg/dL (75-110)
[2019-09-11 13:21] LABS: TROPONIN I < 0.012 ng/mL
[2019-09-11 13:29] LABS: ABSOLUTE LYMPHOCYTES# (MANUAL) 0.8 10^3/uL (0.5-4.7); ABSOLUTE MONOCYTES # (MANUAL) 0.5 10^3/uL (0.1-1.4); BASOPHILS % (MANUAL) 1 % (0-2); EOSINOPHILS % (MANUAL) 0 % (0-6); LYMPHOCYTES % (MANUAL) 5 % (13-45); MONOCYTES % (MANUAL) 3 % (3-13); SEGMENTED NEUTROPHILS % (MAN) 91 % (42-78); TOTAL CELLS COUNTED 100
[2019-09-11 13:30] LABS: PLATELET COMMENT ADEQUATE; RBC MORPHOLOGY COMMENT NORMO-CYTIC/CHROMIC; TOXIC GRANULATION SLIGHT; TOXIC VACUOLATION PRESENT
[2019-09-11] MEDS ORDERED: INSULIN REG, HUMAN 100 UNIT/ML 3 ML VIAL (PYX) SUBCUT ONE (13:33)
--- NOTE | 2019-09-11 15:20 | RADIOLOGY REPORT (SQ) ---
EXAM DESCRIPTION: CT ABD/PELVIS WITH IV ONLY IMAGES COMPLETED DATE/TIME: 09/11/2019 2:46 pm REASON FOR STUDY: abd distention COMPARISON: CT abdomen and pelvis 11/22/2018. CT angiogram chest 09/11/2019. TECHNIQUE: CT scan of the abdomen and pelvis performed using helical scanning technique with dynamic intravenous contrast injection. No oral contrast. Images reviewed with lung, soft tissue, and bone windows. Reconstructed coronal and sagittal MPR images reviewed. Delayed images for evaluation of the urinary system also acquired. All images stored on PACS. All CT scanners at this facility use dose modulation, iterative reconstruction, and/or weight based d osing when appropriate to reduce radiation dose to as low as reasonably achievable (ALARA). [facility]: Dose Right [facility]: CareDose [facility]: Dose Right [facility]: Teradose 4D [facility]: backstitch CONTRAST TYPE AND DOSE: 100 mL Omnipaque 350- low osmolar. RENAL FUNCTION: Creatinine 1.27 RADIATION DOSE: . LIMITATIONS: There is motion artifact. FINDINGS: LOWER CHEST: See separate report of the CT of the chest. LIVER: There is diffuse decreased attenuation most consistent with fatty infiltration. No dilated du cts. SPLEEN: Normal size. PANCREAS: No significant calcifications. No adjacent inflammation or peripancreatic fluid collections . Pancreatic duct not dilated. GALLBLADDER: There is cholelithiasis. ADRENAL GLANDS: No significant masses or asymmetry. RIGHT KIDNEY AND URETER: No significant calcifications. No hydronephrosis or hydroureter. LEFT KIDNEY AND URETER: There is a 2.5 cm cortical exophytic cyst at the left kidney. No significant calcifications. No hydronephrosis or hydroureter. AORTA AND VESSELS: No abdominal aortic aneurysm or acute dissection. Atherosclerotic calcifications at the abdominal and its branches. RETROPERITONEUM: No retroperitoneal adenopathy, hemorrhage or masses. BOWEL AND PERITONEAL CAVITY: No dilated bowel loops to suggest obstruction. No free fluid or free ai r. APPENDIX: Normal. PELVIS: The urinary bladder is distended. No pelvic mass. No free fluid. ABDOMINAL WALL: There are small fat containing bilateral inguinal hernias. BONES: Status post total right hip arthroplasty. Multilevel degenerative changes at the spine. 8 mm sclerotic lesion at L4, not significantly changed in the interval. IMPRESSION: 1. No acute findings in the abdomen or pelvis. 2. Fatty infiltration of the liver. 3. Cholelithiasis. TECHNICAL DOCUMENTATION: JOB ID: [id number] [facility] Quality ID # [id number]: Final reports with documentation of one or more dose reduction techniques (e.g., Au tomated exposure control, adjustment of the mA and/or kV according to patient size, use of iterative reconstruction technique) 2010 [employer]- All Rights Reserved Reading location - IP/workstation name: [email or web address]
[2019-09-11 15:21] LABS: APPEARANCE,URINE CLEAR; BILIRUBIN,URINE NEGATIVE (NEGATIVE); COLOR,URINE YELLOW; GLUCOSE, URINE >=500 mg/dL (NEGATIVE); KETONES,URINE 20 mg/dL (NEGATIVE); LEUKOCYTE ESTERASE,URINE NEGATIVE (NEGATIVE); NITRITE,URINE NEGATIVE (NEGATIVE); PROTEIN,URINE NEGATIVE (NEGATIVE); URINE SPECIFIC GRAVITY 1.033; UROBILINOGEN,URINE NEGATIVE mg/dL (<2.0)
--- NOTE | 2019-09-11 15:22 | RADIOLOGY REPORT (SQ) ---
EXAM DESCRIPTION: CTA CHEST IMAGES COMPLETED DATE/TIME: 09/11/2019 2:46 pm REASON FOR STUDY: Shortness of breath COMPARISON: CT angiogram chest 11/23/2018. CT abdomen and pelvis 09/11/2019. TECHNIQUE: CT scan of the chest performed using helical scanning technique with dynamic intravenous contrast injection. Images reviewed with lung, soft tissue and bone windows. Reconstructed coronal and sagittal MPR images reviewed. Additional 3 dimensional post-processing performed to develop Maximal Intensity Projection images (PR P). All images stored on PACS. All CT scanners at this facility use dose modulation, iterative reconstruction, and/or weight based d osing when appropriate to reduce radiation dose to as low as reasonably achievable (ALARA). [facility]: Dose Right [facility]: CareDose [facility]: Dose Right [facility]: Teradose 4D [facility]: [employer] CONTRAST TYPE AND DOSE: contrast/concentration: Isovue 350.00 mmol/ml; Total Contrast Delivered: 100 .0 ml; Total Saline Delivered: 80.0 ml Contrast bolus adequate for pulmonary arteries and aorta. RENAL FUNCTION: Creatinine 1.27 RADIATION DOSE: . LIMITATIONS: There is motion artifact. FINDINGS: LUNGS AND PLEURA: The evaluation of the lungs is degraded by motion artifact. There is mi ld atelectasis at the bilateral lower lobes. No consolidation, pleural effusion or pneumothorax. AORTA AND GREAT VESSELS: No thoracic aortic aneurysm or acute dissection. HEART: No pericardial effusion. No significant coronary artery calcifications. PULMONARY ARTERIES: No emboli visualized in the main pulmonary arteries or the segmental branches. HILAR AND MEDIASTINAL STRUCTURES: No identified masses or abnormal nodes. HARDWARE: None in the chest. UPPER ABDOMEN: See separate report of the CT of the abdomen. THYROID AND OTHER SOFT TISSUES: No masses. No adenopathy. BONES: Multilevel degenerative changes at the spine. 3D MIPS: Confirm above findings. IMPRESSION: 1. No evidence for pulmonary emboli. 2. Mild bibasilar atelectasis. COMMENT: Quality ID # [id number]: Final reports with documentation of one or more dose reduction techniques (e.g., Automated exposure control, adjustment of the mA and/or kV according to patient size, use of iterative reconstruction technique) TECHNICAL DOCUMENTATION: JOB ID: [id number] [place]-[address] 2010 [employer]- All Rights Reserved Reading location - IP/workstation name: [email or web address]
[2019-09-11] MEDS ORDERED: NORMAL SALINE 1000 ML 1,000 ML IV ONE (15:41)
[2019-09-11] MEDS ORDERED: FLUCONAZOLE 100 MG TABLET PO ONE (15:42)
[2019-09-11] MEDS ORDERED: METFORMIN HCL 500 MG TABLET PO ONE (16:06)
[2019-09-11 17:37] VITALS: BP 144/84
--- NOTE | 2019-09-11 18:42 | EKG REPORT ---
SEVERITY:- OTHERWISE NORMAL ECG - SINUS TACHYCARDIA : Confirmed by: Isabela Thakur 11-Sep-2019 18:41:08
== END 2019-09-11 18:00 | disposition home or self-care (01) ==
LOC: ER 11:55
DX: E11.65 Type 2 diabetes mellitus with hyperglycemia (principal); B35.6 Tinea cruris; R06.00 Dyspnea, unspecified; I12.9 Hypertensive chronic kidney disease with stage 1 through stage 4 chronic kidney disease, or unspecified chronic kidney disease; E11.22 Type 2 diabetes mellitus with diabetic chronic kidney disease; N18.9 Chronic kidney disease, unspecified; Z99.2 Dependence on renal dialysis; R07.9 Chest pain, unspecified; R53.1 Weakness; R51 Headache; R11.0 Nausea; Z20.828 Contact with and (suspected) exposure to other viral communicable diseases; R06.02 Shortness of breath; R05 Cough
CPT/HCPCS: 93005; 99285; 96360; 96361; 36415; 82553; 82962; 82550; 84443; 85025; 80053; 81001; 84484; 83880; 71045; 71275; 74177; 93010; J1815; J7030; J7040

== ENCOUNTER → 2019-09-15 | Outpatient (CLI) | payer BC ==
[2019-09-15 12:34] LABS: ABSOLUTE BASOPHILS # (AUTO) 0.1 10^3/uL (0.0-0.2); ABSOLUTE EOSINOPHILS # (AUTO) 0.2 10^3/uL (0.0-0.6); ABSOLUTE LYMPHOCYTES (AUTO) 1.5 10^3/uL (0.5-4.7); ABSOLUTE MONOCYTES (AUTO) 0.8 10^3/uL (0.1-1.4); ABSOLUTE NEUT (AUTO) 6.7 10^3/uL (1.7-8.2); BASOPHILS % (AUTO) 0.8 % (0-2); HEMOGLOBIN 16.9 g/dL (13.5-17.0); LYMPHOCYTES % (AUTO) 16.5 % (13-45); MEAN CORPUSCULAR HEMOGLOBIN 31.6 pg (27.0-33.4); MEAN CORPUSCULAR HGB CONC 35.3 g/dL (32.0-36.0); MEAN CORPUSCULAR VOLUME 90 fl (80-97); MONOCYTES % (AUTO) 8.2 % (3-13); PLATELET COUNT 244 10^3/uL (150-450); RED BLOOD COUNT 5.35 10^6/uL (4.35-5.55); RED CELL DISTRIBUTION WIDTH 12.8 % (11.5-14.0); SEGMENTED NEUTROPHILS % (AUTO) 72.5 % (42-78); TOTAL CELLS COUNTED % (AUTO) 100 %; WHITE BLOOD COUNT 9.3 10^3/uL (4.0-10.5)
[2019-09-15 13:16] LABS: ALBUMIN 4.3 g/dL (3.5-5.0); ALKALINE PHOSPHATASE 126 U/L (38-126); ANION GAP 11 (5-19); ASPARTATE AMINO TRANSFERASE 51 U/L (17-59); BILIRUBIN,DIRECT 0.1 mg/dL (0.0-0.4); BILIRUBIN,TOTAL 1.1 mg/dL (0.2-1.3); BLOOD UREA NITROGEN 20 mg/dL (7-20); CALCIUM 10.2 mg/dL (8.4-10.2); CARBON DIOXIDE 22 mmol/L (22-30); CHLORIDE 100 mmol/L (98-107); CHOLESTEROL 189.13 mg/dL (0-200); POTASSIUM 4.8 mmol/L (3.6-5.0); TOTAL PROTEIN 7.2 g/dL (6.3-8.2); TRIGLYCERIDES 341 mg/dL (<150); URIC ACID 5.5 mg/dL (3.5-8.5)
[2019-09-15 13:21] LABS: FREE T4 (FREE THYROXINE) 1.09 ng/dL (0.78-2.19)
[2019-09-15 13:27] LABS: DIRECT LDL 98 mg/dL (<100); VLDL CHOLESTEROL 68.2 mg/dL (10-31)
[2019-09-15 13:35] LABS: THYROID STIMULATING HORMONE 2.6 uIU/mL (0.47-4.68)
[2019-09-15 13:36] LABS: GLUCOSE 411 mg/dL (75-110)
[2019-09-16 12:36] LABS: CREATININE URINE 73.6 mg/dL (Not Estab.); MICROALBUMIN URINE 20.9 ug/mL (Not Estab.)
== END ==
LOC: OD 11:39
PROVIDERS: ATTEND Internal Medicine
DX: E11.9 Type 2 diabetes mellitus without complications (principal)
CPT/HCPCS: 36415; 80053; 80061; 82043; 82570; 83036; 84439; 84443; 84550; 85025

== ENCOUNTER 2019-11-01 15:27 | Emergency (ER) | payer BC ==
--- NOTE | 2019-11-01 15:52 | ER Document Report ---
ED Medical Screen (RME) - General Chief Complaint: Weakness Stated Complaint: WEAKNESS Time Seen by Provider: 11/01/19 15:44 Primary Care Provider: CATRACHO RAMOS MD [Primary Care Provider] - Follow up as needed Mode of Arrival: Wheelchair Information source: Patient Notes: HPI; 59-year-old male presents to the emergency room complaining of generalized weakness and worsening shortness of breath today. States he came to work was perfectly fine when his symptoms started. Has any chest pain. Also states he noticed some blood to his left groin area unsure where the bleeding was coming from. Denies any trauma or injury. No medications for his symptoms. No recent travel. No COVID-19 exposure. PE: Alert and oriented x3. Lungs: Clear to auscultation without rales, rhonchi, wheezes. Heart: Tachycardic without murmurs, rubs, gallops. Unable to do full assessment in triage. I have greeted and performed a rapid initial assessment of this patient. A comprehensive ED assessment and evaluation of the patient, analysis of test results and completion of the medical decision making process will be conducted by additional ED providers. I have specifically instructed the patient or family members with the patient to immediately return to any nursing staff should anything change in the patient's condition or with their chief complaint. TRAVEL OUTSIDE OF THE [place] IN LAST 30 DAYS: No - Related Data Allergies/Adverse Reactions: No Known Allergies Allergy (Verified 11/01/19 15:44) Past Medical History - Past Medical History Cardiac Medical History: Reports: Hx Hypertension, Hx Heart Murmur - as a child Denies: Hx Atrial Fibrillation, Hx Congestive Heart Failure, Hx Coronary Artery Disease, Hx Heart Attack, Hx Hypercholesterolemia, Hx Peripheral Vascular Disease Endocrine Medical History: Reports: Hx Diabetes Mellitus Type 2 Renal/ Medical History: Denies: Hx Peritoneal Dialysis Musculoskeltal Medical History: Reports Hx Arthritis, Denies Hx Fibromyalgia, Denies Hx Muscular Dystrophy Traumatic Medical History: Denies: Hx Fractures Past Surgical History: Reports: Hx Abdominal Surgery - colostomy, Hx Herniorrhaphy, Hx Orthopedic Surgery - Rt hip arthroplasty 09/2016. Denies: Hx Appendectomy, Hx Bowel Surgery, Hx Cholecystectomy, Hx Coronary Artery Bypass Graft, Hx Gastric Bypass Surgery, Hx Pacemaker, Hx Tonsillectomy Physical Exam - Vital signs Vitals: Temp Pulse Resp BP Pulse Ox 98.4 F 113 H 18 130/82 H 98 11/01/19 15:32 11/01/19 15:32 11/01/19 15:32 11/01/19 15:32 11/01/19 15:32 Course - Vital Signs Vital signs: Temp Pulse Resp BP Pulse Ox 98.4 F 113 H 18 130/82 H 98 11/01/19 15:32 11/01/19 15:32 11/01/19 15:32 11/01/19 15:32 11/01/19 15:32 Doctor's Discharge - Discharge Referrals: CATRACHO RAMOS MD [Primary Care Provider] - Follow up as needed
--- NOTE | 2019-11-01 16:31 | RADIOLOGY REPORT (SQ) ---
EXAM DESCRIPTION: CHEST 2 VIEWS IMAGES COMPLETED DATE/TIME: 11/01/2019 4:15 pm REASON FOR STUDY: weakness COMPARISON: AP view of the chest from 09/11/2019. EXAM PARAMETERS: NUMBER OF VIEWS: Two views. TECHNIQUE: An AP view of the chest was obtained. RADIATION DOSE: NA LIMITATIONS: None. FINDINGS: LUNGS AND PLEURA: The previous patchy parenchymal opacities in the inferior aspect of the left hemithorax have resolved. There is no acute consolidation, pleural effusion or pneumothorax. MEDIASTINUM AND HILAR STRUCTURES: No mediastinal or hilar contour abnormality. HEART AND VASCULAR STRUCTURES: The cardiac silhouette and pulmonary vasculature are within normal elizabeth its. BONES: No acute findings. HARDWARE: None in the chest. OTHER: No other finding. IMPRESSION: No acute cardiopulmonary process. TECHNICAL DOCUMENTATION: JOB ID: [id number] 2010 [employer] All Rights Reserved Reading location - IP/workstation name: [email or web address]
[2019-11-01 17:01] LABS: ABSOLUTE BASOPHILS # (AUTO) 0.1 10^3/uL (0.0-0.2); ABSOLUTE EOSINOPHILS # (AUTO) 0.2 10^3/uL (0.0-0.6); ABSOLUTE LYMPHOCYTES (AUTO) 2.2 10^3/uL (0.5-4.7); ABSOLUTE MONOCYTES (AUTO) 0.7 10^3/uL (0.1-1.4); ABSOLUTE NEUT (AUTO) 8.2 10^3/uL (1.7-8.2); EOSINOPHILS % (AUTO) 1.9 % (0-6); HEMATOCRIT 45.6 % (37.9-51.0); HEMOGLOBIN 15.9 g/dL (13.5-17.0); LYMPHOCYTES % (AUTO) 19.2 % (13-45); MEAN CORPUSCULAR HEMOGLOBIN 31.5 pg (27.0-33.4); MEAN CORPUSCULAR VOLUME 90 fl (80-97); MONOCYTES % (AUTO) 6.4 % (3-13); PLATELET COUNT 210 10^3/uL (150-450); RED BLOOD COUNT 5.06 10^6/uL (4.35-5.55); RED CELL DISTRIBUTION WIDTH 12.8 % (11.5-14.0); SEGMENTED NEUTROPHILS % (AUTO) 71.5 % (42-78); TOTAL CELLS COUNTED % (AUTO) 100 %; WHITE BLOOD COUNT 11.5 10^3/uL (4.0-10.5)
[2019-11-01 17:24] LABS: ALBUMIN 4.5 g/dL (3.5-5.0); ALKALINE PHOSPHATASE 114 U/L (38-126); ANION GAP 11 (5-19); ASPARTATE AMINO TRANSFERASE 42 U/L (17-59); BILIRUBIN,TOTAL 1.3 mg/dL (0.2-1.3); BLOOD UREA NITROGEN 21 mg/dL (7-20); CALCIUM 9.6 mg/dL (8.4-10.2); CARBON DIOXIDE 23 mmol/L (22-30); CHLORIDE 97 mmol/L (98-107); CREATINE KINASE 102 U/L (55-170); POTASSIUM 4.2 mmol/L (3.6-5.0); TOTAL PROTEIN 7.1 g/dL (6.3-8.2)
[2019-11-01 17:27] LABS: APPEARANCE,URINE CLEAR; BILIRUBIN,URINE NEGATIVE (NEGATIVE); COLOR,URINE YELLOW; GLUCOSE, URINE >=500 mg/dL (NEGATIVE); KETONES,URINE TRACE mg/dL (NEGATIVE); LEUKOCYTE ESTERASE,URINE NEGATIVE (NEGATIVE); NITRITE,URINE NEGATIVE (NEGATIVE); PROTEIN,URINE NEGATIVE (NEGATIVE); URINE SPECIFIC GRAVITY 1.033; UROBILINOGEN,URINE NEGATIVE mg/dL (<2.0)
[2019-11-01 17:38] LABS: GLUCOSE 484 mg/dL (75-110); TROPONIN I < 0.012 ng/mL
[2019-11-01] MEDS ORDERED: RINGERS SOLUTION,LACTATED 1,000 ML IV ONE (17:55)
--- NOTE | 2019-11-01 17:57 | ER Document Report ---
Doctor's Note Notes: 11/01/19 17:56 Triage nurse notified me that patient's blood sugar was 484. IV fluids and VBG were ordered.
--- NOTE | 2019-11-01 19:37 | EKG REPORT ---
SEVERITY:- ABNORMAL ECG - SINUS TACHYCARDIA LEFT ATRIAL ABNORMALITY : Confirmed by: Isabela Thakur 01-Nov-2019 19:37:10
[2019-11-01 20:10] LABS: VENOUS BLOOD BASE EXCESS -2.6 mmol/L; VENOUS BLOOD HCO3 22.4 mmol/L (20-32); VENOUS BLOOD PCO2 39.9 mmHg (35-63); VENOUS BLOOD PH 7.37 (7.30-7.42)
[2019-11-01] MEDS ORDERED: FLUCONAZOLE 100 MG TABLET PO ONE (21:24)
[2019-11-01] MEDS ORDERED: NORMAL SALINE 1000 ML 1,000 ML IV ONE (21:31)
[2019-11-01] MEDS ORDERED: INSULIN REG, HUMAN 100 UNIT/ML 3 ML VIAL (PYX) IV ONE ×2 (21:37→23:13)
[2019-11-02] MEDS ORDERED: INSULIN REG, HUMAN 100 UNIT/ML 3 ML VIAL (PYX) IV ONE (00:08)
[2019-11-02] MEDS ORDERED: NYSTATIN/TRIAMCIN CREAM 15 GM TP ONE (00:23)
[2019-11-02 02:24] VITALS: BP 114/88
--- NOTE | 2019-11-02 02:33 | ER Document Report ---
Entered by ELIZABET WRIGHT SCRIBE 11/01/192119 Acting as scribe for:MAREN RASMUSSEN DO ED General - General Chief Complaint: Weakness Stated Complaint: WEAKNESS Time Seen by Provider: 11/01/19 15:44 Primary Care Provider: CATRACHO RAMOS MD [Primary Care Provider] - 11/02/19 Mode of Arrival: Wheelchair Information source: Patient Notes: This 59 year old male patient presents to the emergency department today with complaints of elevated blood sugars today. Patient works in this hospital with [employer] and he states that he "just felt funny" but he is unable to describe this. He reports that the last time this happened his sugars were high. He also mentions a rash between his legs in his groin area that he just noticed today. TRAVEL OUTSIDE OF THE [place] IN LAST 30 DAYS: No - Related Data Allergies/Adverse Reactions: No Known Allergies Allergy (Verified 11/01/19 15:44) Past Medical History - General Information source: Patient - Social History Smoking Status: Never Smoker Cigarette use (# per day): No Chew tobacco use (# tins/day): No Frequency of alcohol use: None Drug Abuse: None Lives with: Family Family History: Reviewed & Not Pertinent, Hypertension Patient has homicidal ideation: No - Past Medical History Cardiac Medical History: Reports: Hx Hypertension, Hx Heart Murmur - as a child Endocrine Medical History: Reports: Hx Diabetes Mellitus Type 2 Musculoskeletal Medical History: Reports Hx Arthritis Past Surgical History: Reports: Hx Abdominal Surgery - colostomy, Hx Herniorrhaphy, Hx Orthopedic Surgery - Rt hip arthroplasty 09/2016 Review of Systems - Review of Systems Constitutional: See HPI, Other - elevated blood sugars. denies: Fever EENT: No symptoms reported Cardiovascular: No symptoms reported Respiratory: No symptoms reported Gastrointestinal: No symptoms reported Genitourinary: No symptoms reported Male Genitourinary: denies: Testicular pain Musculoskeletal: No symptoms reported Skin: See HPI, Rash Hematologic/Lymphatic: No symptoms reported Neurological/Psychological: No symptoms reported -: Yes All other systems reviewed and negative Physical Exam - Vital signs Vitals: Temp Pulse Resp BP Pulse Ox 98.4 F 113 H 18 130/82 H 98 11/01/19 15:32 11/01/19 15:32 11/01/19 15:32 11/01/19 15:32 11/01/19 15:32 Interpretation: Normal - General General appearance: Appears well, Alert - HEENT Head: Normocephalic, Atraumatic Eyes: Normal Pupils: PERRL Mucous membranes: Dry - Respiratory Respiratory status: No respiratory distress Chest status: Nontender Breath sounds: Normal Chest palpation: Normal - Cardiovascular Rhythm: Regular Heart sounds: Normal auscultation Murmur: No - Abdominal Inspection: Normal Distension: No distension Bowel sounds: Normal Tenderness: Nontender Organomegaly: No organomegaly - Back Back: Normal, Nontender - Extremities General upper extremity: Normal inspection, Nontender, Normal color, Normal ROM, Normal temperature General lower extremity: Normal inspection, Nontender, Normal color, Normal ROM, Normal temperature, Normal weight bearing. No: Kwabena's sign - Neurological Neuro grossly intact: Yes Cognition: Normal Orientation: AAOx4 [place] Coma Scale Eye Opening: Spontaneous [place] Coma Scale Verbal: Oriented [place] Coma Scale Motor: Obeys Commands Sh[place] Coma Scale Total: 15 Speech: Normal Motor strength normal: LUE, RUE, LLE, RLE Sensory: Normal - Psychological Associated symptoms: Normal affect, Normal mood - Skin Skin Temperature: Warm Skin Moisture: Dry Skin Color: Normal Skin irregularity: Rash - Consistent with yeast in inguinal areas bl Course - Re-evaluation Re-evalutation: 11/02/19 02:31 Patient is a pleasant 59-year-old male who comes in because he was not feeling well. Blood sugar 484. Question of patient is compliant with his medications. Hemoglobin A1c from September was 12. Today it is over 14. Patient has had consistently high blood sugars and I think he is eating candy in the room. He has been given fluconazole and nystatin for his fungal infection of the skin. No evidence for bacterial infection. I have spoken to his primary care doctor who would like to see him in the morning. No evidence for acidosis. Vitals stable. He will be discharged home at this time. - Vital Signs Vital signs: Temp Pulse Resp BP Pulse Ox 98.0 F 77 18 114/88 H 98 11/02/19 02:21 11/02/19 02:21 11/02/19 00:01 11/02/19 02:21 11/02/19 02:21 - Laboratory Result Diagrams: 11/01/19 16:52 08/18/20 16:52 Laboratory results interpreted by me: 11/01/19 11/01/19 11/01/19 16:52 16:52 17:15 WBC 11.5 H Sodium 130.9 L Chloride 97 L BUN 21 H Glucose 484 H* POC Glucose Hemoglobin A1c % ALT 73 H Urine Glucose (UA) >=500 H Urine Ketones TRACE H 11/01/19 11/01/19 11/01/19 21:30 22:59 23:01 WBC Sodium Chloride BUN Glucose POC Glucose 393 H 391 H Hemoglobin A1c % > 14.0 H ALT Urine Glucose (UA) Urine Ketones 11/02/19 11/02/19 00:07 02:08 WBC Sodium Chloride BUN Glucose POC Glucose 306 H 368 H Hemoglobin A1c % ALT Urine Glucose (UA) Urine Ketones Discharge - Discharge Clinical Impression: Hyperglycemia due to type 2 diabetes mellitus 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 Do not eat chocolate or anything else that is sweet as your blood sugar is too high and has been too high for quite some time. Forms: Return to Work Referrals: CATRACHO RAMOS MD [Primary Care Provider] - 11/02/19 I personally performed the services described in the documentation, reviewed and edited the documentation which was dictated to the scribe in my presence, and it accurately records my words and actions.
== END 2019-11-02 02:25 | disposition home or self-care (01) ==
LOC: ER 15:27
DX: E11.65 Type 2 diabetes mellitus with hyperglycemia (principal); B36.9 Superficial mycosis, unspecified; I10 Essential (primary) hypertension
CPT/HCPCS: 93005; 99285; 96360; 96361; 36415; 82553; 82962; 82550; 83605; 85025; 80053; 81001; 84484; 83036; 82803; 71046; 93010; J3490; J1815 ×2; J7030; J7120